=== PATIENT | female | born 1960 | race Caucasian/White ===

== ENCOUNTER 2022-09-14 09:28 | Outpatient (CLI) | payer OTHER, SELFPAY ==
[2022-09-14 10:54] LABS: Anion Gap 9 mmol/L (8-16); Blood Urea Nitrogen 17 mg/dL (7-17); Calcium 9.9 mg/dL (8.4-10.2); Carbon Dioxide 27 mmol/L (22-30); Chloride 101 mmol/L (98-107); Estimated Glomerular Filt Rate 56; Glucose 254 mg/dL (65-110); Potassium 4.4 mmol/L (3.4-5.0); Sodium 137 mmol/L (137-145)
== END 2022-09-14 09:29 | disposition home or self-care (01) ==
LOC: ANHSURGERY 09:31
PROVIDERS: Anesthesiology; PCP Internal Medicine; Visit Provider Student in an Organized Health Care Education/Training Program
DX: E11.9 Type 2 diabetes mellitus without complications (principal); Z01.818 Encounter for other preprocedural examination
CPT/HCPCS: 36415; 80048

== ENCOUNTER 2022-09-17 02:30 | Day surgery (SDC) | payer OTHER, SELFPAY ==
[2022-09-13 08:49] VITALS: BMI 36.5
--- NOTE | 2022-09-13 09:00 | SUR.PREOP ---
Report to the Outpatient Waiting Room, entrance under the green pavilion located off [facility], at time 1045 on date 09/17/2022. Planned Procedure Time: 1245. Time changes happen often and if your time is changed the preop area will call you the afternoon before. - You and your visitor will be asked to self-screen and do not enter if you have any COVID symptoms. - A mask is optional within the hospital at this time. Patients may have clear liquids (water, carbonated beverages, clear teas, apple juice) until 3 hours prior to surgery with a maximum of 20 ounces- 0945. - No food from midnight until time of surgery - Infants may have breast milk until 4 hours before surgery, formula 6 hours prior to surgery. - Children will be allowed to drink immediately following surgery. If applicable, please bring a bottle or sippy cup to assist with drinking. Juice, water, soda, and popsicles are readily available. For infants on formula, please bring formula the day of surgery. Pacifiers are allowed. Take the following medications with a SIP of water the morning of surgery: Levothyroxine DO NOT STOP ANY OF YOUR OTHER PRESCRIPTION MEDICATIONS PRIOR TO SURGERY ?EXCEPT THE FOLLOWING Medications to discontinue per physician Vitamin D, Naproxen Date to take last dose 09/13/2022 Please no make-up, nail yakut, hairspray, perfume, deodorant, or body powder the day of surgery. No jewelry (including any body piercings) or valuables the day of surgery, leave them at home. Please take a shower or bath the night before, or the morning of, surgery with an antibacterial soap. Wear comfortable, loose fitting clothing. Children are encouraged to wear pajamas. - Jewelry must be removed prior to entering the operating room. Rings and piercings that are not removed may be cut off. - The hospital will not accept responsibility for valuables. - Please leave all valuables, including medications, at home the day of surgery. If you are going home after surgery, a licensed driver/refuse collector must drive you home. - NO public transportation without another adult if you receive anesthesia. - We recommend that an adult stay with you for 24 hours following discharge. - We also recommend that you do not drive, make important decision, drink alcoholic beverages, or take any drugs that were not prescribed by your health care provider for at least 24 hours after your discharge time. For Pediatric surgeries, we recommend two adults accompany the child home. Follow any additional instructions given to you from your surgeon. If you or anyone in your household have experienced Covid symptoms in the past week, please notify your surgeon or the nurse liaison at the phone number below for possible testing. Telephone instructions given to ____patient- Bridgettorah and asked if any additional questions and then verbalized understanding. Patient advised to call surgeon office or pre surgery nurse liaison [phone] if any additional questions.
--- NOTE | 2022-09-14 18:32 | WPDANESEPP ---
Anes - Eval Pre Procedure Procedure: Operation Date: 09/17/22 12:45 Proposed Procedures p Hysteroscopy Dilation and Curettage - Nikhil Little MD Date/Time: 09/14/22 18:32 Pre Op Diagnosis: post menopausal bleeding Patient Data Age: 61 Gender: F Height: 1.73 m Weight: 109 kg Allergies Allergy/AdvReac Type Severity Reaction Status Date / Time No Known Allergies Allergy Verified 09/13/22 08:44 Home Medications Medication Instructions Recorded Confirmed Type levothyroxine 112 mcg capsule 112 mcg PO DAILY 10/27/20 09/13/22 History lisinopril 20 1 tablet PO DAILY 10/27/20 09/13/22 History mg-hydrochlorothiazide 12.5 mg tablet simvastatin 20 mg tablet 20 mg PO DAILY 10/27/20 09/13/22 History ergocalciferol (vitamin D2) 1,250 1,250 mcg PO WEEKLY 08/09/22 09/13/22 History mcg (50,000 unit) capsule hydroxyzine HCl 25 mg tablet 25 mg PO PRN PRN nerves/itching 08/09/22 09/13/22 History metformin 1,000 mg tablet 1,000 mg PO BID 08/09/22 09/13/22 History naproxen 500 mg tablet 500 mg PO PRN PRN Pain 08/09/22 09/13/22 History fluconazole 150 mg tablet 150 mg PO Q72H #2 tabs 09/12/22 09/13/22 Rx (Diflucan) nystatin 100,000 unit/gram topical 1 applic topical BID PRN Itching 09/13/22 09/13/22 History powder Patient hx anesthesia problems: none Family hx anesthesia problems: none Results Review: All pre-operative results and documents have been reviewed as part of the pre-operative evaluation. [facility] Past Medical History Medical History (Updated 09/14/22 @ 18:32 by Anusha Salguero CRNA) Arthritis Back pain Diabetes Hyperlipemia Hypertension Obesity (BMI 30-39.9) Thyroid disease Surgical History Surgical History History of delivery History of D&C Family History Family History Mother Diabetes mellitus Heart disease Sibling Hypertension Father Lung cancer Social History Social History Smoking packs per day: 0.75 Smoking cigarettes per day: 15.0 Years smoked: 13 Smoking pack-years: 9.75 Smoking status: Former smoker Tobacco type: cigarettes Smoking end date: 07/30/88 Alcohol intake: never Substance use: never Substance use type: does not use Living arrangements: with family Occupation/Education: occupation Gender identity (if verbalized by the patient): Female Sexual Orientation (if Verbalized by the Patient): Straight or Heterosexual Spiritual care concerns: No Exam Day of Procedure 09/14/22 18:32
--- NOTE | 2022-09-17 07:46 | PM.IMHP ---
H&P: HPI History of Present Illness Date/Time: 09/17/22 07:46 Chief Complaint: postmenopausal bleeding Narrative: ?61-year-old female who presents for hysteroscopy D&C for evaluation of postmenopausal bleeding.? Patient states she continues to have on and off bleeding.? Patient had pelvic ultrasound which confirmed 2 known uterine fibroids, largely unchanged from last exam.? Endometrial lining was known to be irregular and thickened. Review of Systems Cardiovascular: Cardiovascular: Denies chest pain, Denies leg edema, Denies palpitations, Denies dyspnea and Denies dyspnea on exertion Respiratory: Respiratory: Denies cough, Denies dyspnea and Denies dyspnea on exertion Gastrointestinal: Gastrointestinal: Denies abdominal pain, Denies constipation, Denies diarrhea, Denies nausea and Denies vomiting Genitourinary: Genitourinary: Denies hematuria, Denies urinary frequency, Denies dysuria, Denies pelvic pain, Denies urinary incontinence and Denies vaginal discharge Neurologic: Reports system reviewed and no additional complaints, except as documented Psychiatric: Psychiatric: Reports no additional psychiatric complaints Endocrine: Endocrine: Denies palpitations [facility] Past Medical History Medical History (Updated 09/14/22 @ 18:32 by Anusha Salguero CRNA) Arthritis Back pain Diabetes Hyperlipemia Hypertension Obesity (BMI 30-39.9) Thyroid disease Surgical History Surgical History History of delivery History of D&C Family History Family History Mother Diabetes mellitus Heart disease Sibling Hypertension Father Lung cancer Social History Social History Smoking packs per day: 0.75 Smoking cigarettes per day: 15.0 Years smoked: 13 Smoking pack-years: 9.75 Smoking status: Former smoker Tobacco type: cigarettes Smoking end date: 07/30/88 Alcohol intake: never Substance use: never Substance use type: does not use Living arrangements: with family Occupation/Education: occupation Gender identity (if verbalized by the patient): Female Sexual Orientation (if Verbalized by the Patient): Straight or Heterosexual Spiritual care concerns: No Meds Home Medications and Allergies Home Medications Medication Instructions Recorded Confirmed Type levothyroxine 112 mcg capsule 112 mcg PO DAILY 10/27/20 09/13/22 History lisinopril 20 1 tablet PO DAILY 10/27/20 09/13/22 History mg-hydrochlorothiazide 12.5 mg tablet simvastatin 20 mg tablet 20 mg PO DAILY 10/27/20 09/13/22 History ergocalciferol (vitamin D2) 1,250 1,250 mcg PO WEEKLY 08/09/22 09/13/22 History mcg (50,000 unit) capsule hydroxyzine HCl 25 mg tablet 25 mg PO PRN PRN nerves/itching 08/09/22 09/13/22 History metformin 1,000 mg tablet 1,000 mg PO BID 08/09/22 09/13/22 History naproxen 500 mg tablet 500 mg PO PRN PRN Pain 08/09/22 09/13/22 History fluconazole 150 mg tablet 150 mg PO Q72H #2 tabs 09/12/22 09/13/22 Rx (Diflucan) nystatin 100,000 unit/gram topical 1 applic topical BID PRN Itching 09/13/22 09/13/22 History powder Allergies Allergy/AdvReac Type Severity Reaction Status Date / Time No Known Allergies Allergy Verified 09/13/22 08:44 Exam Const: General: no acute distress Eyes: EOM: EOMs intact bilaterally Neck: Neck: supple Thyroid: thyroid normal Chest: Breast/axilla inspection: normal inspection of the breasts Breast/axilla palpation: normal palpation of the breasts, normal palpation of the axillae and no axillary lymphadenopathy Resp: Effort & Inspection: normal respiratory effort Auscultation: clear to auscultation bilaterally Cardio: Rate: regular rate Rhythm: regular rhythm GI: Inspection: non-distended GI Palp: Yes Soft to palpation, No Tenderness to palpation present (GI) and No Guarding due to pal
--- NOTE | 2022-09-17 07:47 | WPDHPUPDATE1 ---
History and Physical Update Update Date/Time: 09/17/22 07:47 History and Physical has been reviewed, including an updated exam of the patient. There are NO changes in the patient's condition. Risks, benefits, and alternatives have been discussed and questions answered. Patient agrees to proceed with procedure.
[2022-09-17] MEDS: ACETAMINOPHEN 500 MG TABLET 1000 MG PO (10:54)
[2022-09-17 11:01] VITALS: BP 127/56; PULSE 100; RESP 18; TEMP 36; O2SAT 99
[2022-09-17] MEDS: LACTATED RINGERS 1,000 ML 30 ML IV CONT (11:17)
[2022-09-17 11:22] LABS: Glucose Point of Care 222 mg/dl (65-105)
--- NOTE | 2022-09-17 12:17 | P.PNAN_ITS ---
Anes - Eval Final PreProcedure Day of Procedure 09/17/22 12:17 Patient weight: obese Heart: regular rate and rhythm Lungs: decreased breath sounds Airway: Mallampati scale class II and special considerations poor dentition Neurological: alert and oriented Last oral intake: >/= 8 hours ASA classification: III Emergent: no Anesthetic plan: proceed Anesthesia type and monitoring: general GIVS and standard monitoring Results Review: All pre-operative results and documents have been reviewed as part of the pre- operative evaluation. Informed Consent: The patient's anesthetic plan and its attendant risks and benefits were discussed with the patient/family/POA. Questions were solicited and answers provided to the satisfaction of the patient/family/POA.
--- NOTE | 2022-09-17 12:50 | W.PM.PROC2 ---
Procedure Note - Detailed Date of Procedure 09/17/22 Pre-op Diagnosis post menopausal bleeding Post-op Diagnosis Same Procedure Performed paracervical block hysteroscopy dilation & curettage Surgeon Nikhil Little MD Anesthesia General Indications abnormal uterine bleeding Findings globally thickened endometrium and hypervascular. unable to visualize the tubal ostia Description of Procedure Mariposa Sheikh presents for hysteroscopy D&C for postmenopausal AUB. . She was counseled as to the indications, risks, benefits, and alternatives to surgery, with the risks including bleeding, infection, damage to surrounding organs, VTE, and complications of anesthesia. Her verbal and written consent was obtained. PROCEDURE: The patient was taken to the OR and general anesthesia induced. She was prepped and draped in Darío stirrups with support of the back and bilateral lower extremities. I/O catheterization performed of the bladder. The above findings were noted. Infiltration with 1% lidocaine at the 3 and 9 o'clock cervical positions was performed. A single tooth tenaculum was placed on the anterior lip of the cervix. The cervix was dilated with sequential Alexandra dilators. Hysteroscopy, using a normal saline medium, was performed and showed the above findings. Sharp uterine curettage was then performed and tissue placed on Telfa. The tenaculum was removed and hemostasis was observed. The patient tolerated the procedure well. Sponge, lap, and needle counts were correct. The patient was taken to the recovery room in stable condition. Estimated Blood Loss 10 Drains No Packing No Pathology Yes (endometrial curettings ) Complications No immediate complications Condition Stable Disposition PACU [facility] Billing Surgery - Charge Forward: Surgery Billing
[2022-09-17 12:55] VITALS: BP 104/57; PULSE 93; RESP 14; O2SAT 96
[2022-09-17 12:57] LABS: Glucose Point of Care 189 mg/dl (65-105)
[2022-09-17 13:25] VITALS: BP 130/57; PULSE 77; RESP 16
[2022-09-17] MEDS: KETOROLAC 15 MG/ML VIAL (*BKC) IV PUSH (13:44)
[2022-09-17 13:50] VITALS: BP 131/61; PULSE 72; RESP 16
== END 2022-09-17 14:15 | disposition home or self-care (01) ==
PROVIDERS: PCP Internal Medicine; Visit Provider Student in an Organized Health Care Education/Training Program
PROC: 0U5B8ZZ Destruction of Endometrium, Via Natural or Artificial Opening Endoscopic (ICD-10-PCS; CPT 58563; principal; 2022-09-17 12:45)
DX: C54.1 Malignant neoplasm of endometrium (principal); N95.0 Postmenopausal bleeding; D25.9 Leiomyoma of uterus, unspecified; I10 Essential (primary) hypertension; E11.9 Type 2 diabetes mellitus without complications; E78.5 Hyperlipidemia, unspecified; E07.9 Disorder of thyroid, unspecified; Z79.84 Long term (current) use of oral hypoglycemic drugs; E66.9 Obesity, unspecified; Z68.35 Body mass index [BMI] 35.0-35.9, adult; Z87.891 Personal history of nicotine dependence
CPT/HCPCS: 58558; 36415; 80048; 82948; 88305; A9270; J1885; J2704; J3010; J7120

== ENCOUNTER 2023-12-20 11:31 | Emergency (ER) | payer MEDICARE, SELFPAY ==
--- NOTE | 2023-12-20 11:40 | ED.UPPEXIN ---
HPI - Extremity Injury (Upper) General Chief Complaint: Neck Pain/Injury Stated Complaint: Left Side Neck/Shoulder Pain Time Seen by Provider: 12/20/23 11:40 Source: patient, RN notes reviewed and old records reviewed Mode of arrival: ambulatory Limitations: no limitations History of Present Illness HPI narrative: Patient presents with complaints of left-sided neck pain that began on December 12, 2023 after undergoing pulmonary function testing. She reports that pain is worse with movement of the neck. She has been turning Tylenol and ibuprofen. She reports that pain radiates to the shoulder with certain movements. She denies numbness or tingling. She retains full range of motion, but does state this increases pain. She has been taking ibuprofen with poor relief. Denies injury or trauma. No other concerns or complaints today. Related Data Home Medications Medication Instructions Recorded Confirmed levothyroxine 112 mcg capsule 112 mcg PO DAILY 10/27/20 12/20/23 lisinopril 20 1 tablet PO DAILY 10/27/20 12/20/23 mg-hydrochlorothiazide 12.5 mg tablet simvastatin 20 mg tablet 20 mg PO DAILY 10/27/20 12/20/23 ergocalciferol (vitamin D2) 1,250 1,250 mcg PO WEEKLY 08/09/22 12/20/23 mcg (50,000 unit) capsule hydroxyzine HCl 25 mg tablet 25 mg PO PRN PRN nerves/itching 08/09/22 12/20/23 metformin 1,000 mg tablet 1,000 mg PO BID 08/09/22 12/20/23 naproxen 500 mg tablet 500 mg PO PRN PRN Pain 08/09/22 12/20/23 nystatin 100,000 unit/gram topical 1 applic topical BID PRN Itching 09/13/22 12/20/23 powder Allergies Allergy/AdvReac Type Severity Reaction Status Date / Time No Known Allergies Allergy Verified 12/20/23 11:34 Review of Systems Review of Systems: All systems reviewed & are unremarkable except as noted in HPI and below Constitutional: Constitutional: Reports no additional constitutional complaints ENT: Reports system reviewed and no additional complaints, except as documented Cardiovascular: Cardiovascular: Reports no additional cardiovascular complaints Respiratory: Respiratory: Reports no additional respiratory complaints Gastrointestinal: Gastrointestinal: Reports no additional gastrointestinal complaints Musculoskeletal: Musculoskeletal: Reports no additional musculoskeletal complaints and Reports as per HPI [facility] Past Medical History Medical History (Updated 12/21/23 @ 00:01 by Angelita Dickson) Arthritis Back pain Diabetes Hyperlipemia Hypertension Obesity (BMI 30-39.9) Thyroid disease Surgical History Surgical History (Updated 09/20/22 @ 14:02 by Trisha Sidhu [facility]) History of delivery History of D&C History of hysteroscopy D&C Family History Family History Mother Diabetes mellitus Heart disease Sibling Hypertension Father Lung cancer Social History Social History Smoking packs per day: 0.75 Smoking cigarettes per day: 15.0 Years smoked: 13 Smoking pack-years: 9.75 Smoking status: Former smoker Tobacco type: cigarettes Smoking end date: 07/30/88 Alcohol intake: never Substance use: never Substance use type: does not use Living arrangements: with family Occupation/Education: occupation Gender identity (if verbalized by the patient): Female Sexual Orientation (if Verbalized by the Patient): Straight or Heterosexual Spiritual care concerns: No Comments At the time of my signature, I reviewed and agree with the nursing past medical, surgical, social, and family history. There is no relevant family history pertinent to the patient complaint. Exam Const: General: cooperative, no acute distress, alert and awake Orientation/consciousness: oriented to person, oriented to place and oriented to time HENMT: Head: normal to inspection Neck: Neck: normal visual inspection, full ROM, no lymphadenopathy and no meningeal signs Neck images: 1. tightness, palpable spasm Resp: Effort & Inspection: normal respiratory effort and able to speak in complete sentences Auscultation: clear to auscultation bilaterally, no crackles, no rales, no rhonchi and no wheezes Cardio: Palpation: normal PMI Rate: regular rate Rhythm: regular rhythm Heart sounds: S1 normal heart sound present and S2 normal heart sound present Neuro: General: oriented to person, oriented to place and oriented to time Cranial nerves: Yes CN's II-XII intact bilaterally Extrem: Left upper extremity: normal to inspection and full ROM Psych: Appearance: grossly normal Thought process: Normal thought process present Insight: Good insight present (Psych) Judgement: Good judgement present (Psych) Course Course Level of Care: Express Care Visit Vital Signs Vital signs: Vital Signs Temperature 97.6 F 12/20/23 11:42 Pulse Rate 125 H 12/20/23 11:42 Respiratory Rate 20 12/20/23 11:42 Blood Pressure 120/66 12/20/23 11:42 Pulse Oximetry 99 12/20/23 11:42 Oxygen Delivery Room Air 12/20/23 11:42 Temperature 97.6 F 12/20/23 11:42 Pulse Rate 125 H 12/20/23 11:42 Respiratory Rate 20 12/20/23 11:42 Blood Pressure 120/66 12/20/23 11:42 Pulse Oximetry 99 12/20/23 11:42 Oxygen Delivery Room Air 12/20/23 11:42 Reviewed MDM - Extremity Injury (Upper) MDM Narrative Medical decision making narrative: Patient with muscle spasm to left trapezius region. Has full range of motion to the left upper extremity. Full range of motion to the neck. On exam, heart rate was 88 auscultated, regular. Patient is nontoxic appearing and in no distress. Treat with prednisone, muscle relaxants. Follow with primary care provider. Emergency department for new or worse symptoms. Discharge instructions reviewed with patient, as well as provided in writing per nursing staff. The instructions also include specific and strict return/GO TO THE ER as well as f/u information. All questions have been answered, and the patient deny any further questions with discharge and discharge plan. Some parts of this dictation were generated by voice recognition software and may contain typographical and/or grammatical inaccuracies. Differential Diagnosis Differential diagnosis: Likely other (Neck pain, shoulder injury) Medical Records Attestation: I reviewed the patient's medical records. Discharge Plan Discharge Clinical Impression: Cervical radiculopathy Patient Disposition: Home, Self-Care Condition: Stable Instructions: Antibiotic Form, Acute Neck Pain (ED) Additional Instructions: Take medication as prescribed, follow with primary care provider. Emergency department for new or worse symptoms. Patient Language: Divehi Prescriptions: New prednisone 50 mg tablet 50 mg PO DAILY Qty: 5 0RF cyclobenzaprine 10 mg tablet 10 mg PO TID PRN (Reason: muscle spasm) Qty: 14 0RF No Action ergocalciferol (vitamin D2) 1,250 mcg (50,000 unit) capsule 1,250 mcg PO WEEKLY Rx Instructions: Takes 1 capsule every . hydroxyzine HCl 25 mg tablet 25 mg PO PRN PRN (Reason: nerves/itching) naproxen 500 mg tablet 500 mg PO PRN PRN (Reason: Pain) levothyroxine 112 mcg capsule 112 mcg PO DAILY lisinopril-hydrochlorothiazide 20-12.5 mg tablet 1 tablet PO DAILY simvastatin 20 mg tablet 20 mg PO DAILY metformin 1,000 mg tablet 1,000 mg PO BID nystatin 100,000 unit/gram powder 1 applic topical BID PRN (Reason: Itching) Follow-up/Referrals: Jenifer,Renato Jett MD [Primary Care Provider] - 1 Week Time of Disposition: 12:06
[2023-12-20 11:42] VITALS: BP 120/66; PULSE 125; RESP 20; TEMP 36.4; O2SAT 99
== END 2023-12-20 12:12 | disposition home or self-care (01) ==
PROVIDERS: Emergency Provider Nurse Practitioner Family; PCP Internal Medicine
DX: M54.12 Radiculopathy, cervical region (principal); E78.5 Hyperlipidemia, unspecified; I10 Essential (primary) hypertension; E11.9 Type 2 diabetes mellitus without complications; Z79.899 Other long term (current) drug therapy; Z79.84 Long term (current) use of oral hypoglycemic drugs; Z87.891 Personal history of nicotine dependence
CPT/HCPCS: 99213; G0463

== ENCOUNTER 2023-12-24 15:46 | Inpatient (IN) | payer MEDICARE, SELFPAY ==
[2023-12-24] VITALS (7 sets, daily range): BP systolic 86–139; BP diastolic 46–65; PULSE 99–132; RESP 13–20; TEMP 36.3–36.7; O2SAT 97–100; BMI 32.7
--- NOTE | ~2023-12-24 | US_ITS ---
EXAMINATION: US biopsy lymph node DATE: 12/27/2023 11:17 INDICATION: Left supraclavicular mass/lymph node biopsy TECHNIQUE: The procedure including the risks and benefits was discussed with the patient. Risks discu ssed included bleeding and infection. The patient understood the risks and agreed to proceed. The sk in overlying the mass at the left supraclavicular region was prepped and draped in usual sterile fash ion. Anesthetic was administered with 1% lidocaine subcutaneously. An 14 gauge core biopsy needle w as advanced under continuous ultrasound observation to the lesion of interest. 4 core biopsy specime ns were obtained, 3 placed in RPMI media and one in formalin. Following the first biopsy there was le akage along the biopsy tract of a significant amount of serosanguineous fluid from the cystic compone nt of the mass. An 18-gauge needle was therefore advanced into the cystic component of the mass with aspiration of approximately 5 mL additional serosanguineous fluid which was also sent for pathology p rior to obtaining the subsequent 3 core biopsy specimens. The needle was removed and the entry site was cleaned and dressed. Post procedure ultrasound demonstrated no hemorrhage. FINDINGS: Ultrasound images demonstrate biopsy needles advanced into the solid components of the pred ominant solid 5 cm left supraclavicular mass. IMPRESSION: 1. Successful Ultrasound-guided biopsy of a 5 cm relatively solid likely partially necrotic left supr aclavicular mass. Reviewed, dictated and finalized at location A. IMPRESSION: 1. Successful Ultrasound-guided biopsy of a 5 cm relatively solid likely partia lly necrotic left supraclavicular mass.
--- NOTE | ~2023-12-24 | US_ITS ---
EXAMINATION: US venous doppler [facility] DATE: 12/26/2023 16:39 INDICATION: Acute pulmonary emboli. TECHNIQUE: Grayscale ultrasound images without and with compression and Doppler ultrasound images of the bilateral lower extremity veins were obtained. COMPARISON: None. FINDINGS: The visualized portions of right common femoral vein, profunda (deep) femoral vein, femoral vein, pop liteal vein, peroneal veins, posterior tibial veins, and greater saphenous vein outflow are patent. The visualized portions of left common femoral vein, profunda femoral vein, femoral vein, popliteal v ein, peroneal veins, posterior tibial veins, and greater saphenous vein outflow are patent. There is a small left Stokes's cyst. IMPRESSION: 1. No deep venous thrombosis. Reviewed, dictated and finalized at location B.
--- NOTE | ~2023-12-24 | CT_ITS ---
EXAMINATION: CT soft tissue neck w con DATE: 12/24/2023 19:19 INDICATION: Tender swelling on the left side of neck TECHNIQUE: Computed tomography (CT) of the neck was performed with 75 mL Omnipaque-350 intravenous co ntrast. The dose-length product was 464.27 mGy-cm. COMPARISON: None FINDINGS: Heterogeneously enhancing 4.9 x 5.1 x 6.3 cm mass in the left lower neck, beginning inferior to the l eft carotid bifurcation and extending inferiorly posterior to the left clavicle, which displaces and severely narrows the adjacent left inferior jugular vein. The thyroid gland is unremarkable. The s ubmandibular and parotid glands are symmetric. There is no cervical lymphadenopathy. There are no masses identified. The superior mediastinum is unremarkable. The airway is unremarkable. Parap haryngeal and pre-glottic fat planes are preserved. Normal enhancing neck arteries. The orbits are unremarkable. Visualized sinuses and mastoid air cells are well aerated. Partially visualized nathalie ng parenchyma is clear. There is cervical spondylosis. Only three teeth remain, periapical lucency at the single remaining left maxillary premolar, likely indicative of periodontal disease. IMPRESSION: Heterogeneous, likely cystic and solid left lower neck mass measuring up to 6.3 cm. May represent a n ecrotic lymph node, other necrotic mass, or abscess. If there has been history of recent catheterizat ion on the left, vascular injury including pseudoaneurysm could be considered, but this is thought to be much less likely. Reviewed, dictated and finalized at location K. IMPRESSION: Heterogeneous, likely cystic and solid left lower neck mass measuring up to 6.3 cm. May represent a necrotic lymph node, other necrotic mass, or abscess. If t here has been history of recent catheterization on the left, vascular injury in cluding pseudoaneurysm could be considered, but this is thought to be much less likely.
--- NOTE | ~2023-12-24 | CT_ITS ---
EXAMINATION: CTA chest PE protocol DATE: 12/24/2023 19:20 INDICATION: tachycardia, SOB, sepsis TECHNIQUE: Computed tomography angiography (CTA) of the chest was performed with 100 mL Omnipaque-350 intravenous contrast timed to evaluate the pulmonary arteries. Coronal maximum intensity projection 3D-reconstructions were created by the technologist. The dose-length product (DLP) was 443.13 mGy-cm. Automated exposure control and iterative reconstruction technique were employed. COMPARISON: None. FINDINGS: Lung parenchyma and airways: 8 mm right upper lobe pulmonary nodule. 7 mm left lower lobe pulmonary n odule. Decreased volume and scarring in the left lower lobe. Pleura: Mild left pleural thickening. Thoracic inlet, axillae and chest wall: Chest wall soft tissues are unremarkable. The inferior portio n of a heterogeneously enhancing left lower neck mass is visualized, please refer to the report on e concurrent CT soft tissue neck for additional details. Thoracic aorta: No significant dilation. No dissection. Mild calcification. Mediastinum: Mildly dilated central pulmonary arteries, as can be seen with pulmonary arterial hypert ension. Heart and pericardium: Mild cardiomegaly. Small volume pericardial effusion. RV/LV ratio less than 1. Coronary artery calcifications: Mild. Upper abdomen: No significant finding. Bones: No acute osseous finding. Pulmonary arteries: Study quality: Adequate. Subsegmental pulmonary emboli noted in the bilateral upp er lobes and right lower lobe. IMPRESSION: Subsegmental, nonocclusive emboli in the bilateral upper lobes and right lower lobe. Low clot burden. No evidence of right heart strain. Small pericardial effusion. Multiple pulmonary nodules measuring up to 8mm, recommend follow-up low-dose noncontrast CT of the est in 3-6 months.. Reviewed, dictated and finalized at location [facility]. IMPRESSION: Subsegmental, nonocclusive emboli in the bilateral upper lobes and right lower lobe. Low clot burden. No evidence of right heart strain. Small pericardial effusion. Multiple pulmonary nodules measuring up to 8mm, recommend follow-up low-dose no ncontrast CT of the chest in 3-6 months..
--- NOTE | 2023-12-24 16:12 | ECG_ITS ---
Test Date: 2023-12-24 16:14:54 Measurements Intervals Mears Rate: 130 P: 52 OH: 142 QRS: 25 QRSD: 85 T: 45 QT: 300 QTc: 442 Interpretive Statements SINUS TACHYCARDIA No previous ECG available for comparison Electronically Signed On 12-25-2023 14:24:37 CDT by Shreya Campos M.D.
[2023-12-24 16:19] LABS: Glucose Point of Care 272 mg/dl (65-105)
--- NOTE | 2023-12-24 16:27 | ED.GENADULT ---
HPI - General Adult General Chief complaint: Unspecified <Judycriselda Felix APRN - Last Filed: 12/25/23 20:30> Stated complaint: multiple complaints <Judy Felix APRN - Last Filed: 12/25/23 20:30> Time Seen by Provider: 12/24/23 16:15 <Judy Felix APRN - Last Filed: 12/25/23 20:30> Focused HPI: Patient is a 63-year-old female who presents to the ER with concerns for increased blood sugar. She endorses numbness in her toes bilaterally. Patient also endorses some tingling in her left hand. She reports that she feels like she is going to pass out. Patient reports her symptoms have been going on for about 3 weeks. She also endorses muscle spasms in her left neck. Patient reports she went to the urgent care earlier today and they told her she has a knot in her neck. GENERAL: Well-appearing, well-nourished, and in no acute distress. HEAD: Normocephalic, atraumatic. CHEST: Clear to auscultation. ?No respiratory distress. HEART: Tachycardia.? NEURO: ?Alert and oriented x3. Patient screened in triage and initial orders placed.? ?Additional care and disposition to be based upon?diagnostic testing and treatment. <Judy Felix APRN - Last Filed: 12/25/23 20:30> History of Present Illness HPI narrative: 63-year-old female has a history of hypothyroidism, hypertension, diabetes presenting with lightheadedness and hyperglycemia. States that for the last several weeks her sugars have been much higher than normal. States that she wakes up now in the 200s. States that normally she never goes above 160. States that she has been having pain in the left side of her neck. She recently was seen at urgent care who started her on prednisone and Flexeril with minimal relief. States that she and started having tingling in all of her toes as well as her left hand so she came in for evaluation. Complains of intermittent nausea but no vomiting. No chest pain or shortness of breath. No fevers, weakness, speech or vision changes. <Rola Sam MD - Last Filed: 12/26/23 19:30> Related Data Home medications: Home Medications Medication Instructions Recorded Confirmed levothyroxine 112 mcg capsule 112 mcg PO DAILY 10/27/20 12/24/23 simvastatin 20 mg tablet 20 mg PO DAILY 10/27/20 12/24/23 hydroxyzine HCl 25 mg tablet 25 mg PO PRN PRN nerves/itching 08/09/22 12/24/23 metformin 1,000 mg tablet 1,000 mg PO BID 08/09/22 12/24/23 naproxen 500 mg tablet 500 mg PO PRN PRN Pain 08/09/22 12/24/23 cholecalciferol (vitamin D3) 50 50 mcg PO DAILY 12/24/23 12/24/23 mcg (2,000 unit) capsule (Vitamin D3) lisinopril 20 mg tablet 20 mg PO DAILY 12/24/23 12/24/23 <Judy Felix APRN - Last Filed: 12/25/23 20:30> Allergies/adverse reactions: Allergies Allergy/AdvReac Type Severity Reaction Status Date / Time No Known Allergies Allergy Verified 12/24/23 22:32 <Judy Felix APRN - Last Filed: 12/25/23 20:30> Review of Systems Review of Systems: All systems reviewed & are unremarkable except as noted in HPI and below <Rola Sam MD - Last Filed: 12/26/23 19:30> [facility] Past Medical History Medical History: Medical History (Updated 12/26/23 @ 19:30 by Rola Sam MD) Anxiety Arthritis Back pain Essential hypertension GERD (gastroesophageal reflux disease) Graves disease Hyperlipemia Hypertension Incidental pulmonary nodule, greater than or equal to 8mm CT scan 06/2023 demonstrated stable 8 mm indeterminate pulmonary nodule left lower lobe according to reports from [place]. 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, treated with hysterectomy with bilateral salpingo oophorectomy and radiation therapy Migraines Obesity (BMI 30-39.9) Postablative hypothyroidism Seborrheic keratosis Thyroid disease Type 2 diabetes mellitus <Judy Felix APRN - Last Filed: 12/25/23 20:30> Surgical History Surgical History: Surgical History (Updated 12/25/23 @ 04:15 by Delia Jeter DO) History of delivery History of D&C History of hysteroscopy History of total abdominal hysterectomy and bilateral salpingo-oophorectomy (11/13/22) <Judy eFlix APRN - Last Filed: 12/25/23 20:30> Family History Family History: Family History Mother Diabetes mellitus Heart disease Sibling Hypertension Father Lung cancer <Judy Felix APRN - Last Filed: 12/25/23 20:30> Social History Social History: Social History (Updated 12/25/23 @ 09:53 by Delia Jeter DO) Social History: Patient lives in [place] with her of 47 years. 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 She is a former smoker but quit smoking in 1988. She denies any significant alcohol or illicit substance use. She has a set of fraternal twins daughter and a son that are 33 years old. Code status: Full code Surrogate decision maker: Denzel () Smoking packs per day: 0.75 Smoking cigarettes per day: 15.0 Years smoked: 12 Smoking pack-years: 9.00 Smoking status: Former smoker Tobacco type: cigarettes Smoking end date: 07/30/88 Alcohol intake: never Substance use: never Substance use type: does not use Do You Feel Safe in your Home?: Yes Lack of Transportation: No Lack of Food: Never True Current Housing: I Have Housing Concerned About Future Housing: No Difficulty Paying Gas/Electric Bills: No Difficulty Paying for Meds: No Currently Unemployed: No Education: High School Diploma/GED Difficulty w/ Childcare or Family Care: No Living arrangements: with family 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 EYES: PERRLA and EOMI. ENT: Mucous membranes dry NECK: Supple. CHEST: Clear to auscultation. No respiratory distress. HEART: tachycardic, regular rhythm ABDOMEN: Soft, nontender, nondistended EXTREMITIES: Normal range of motion. No edema. SKIN: Warm, dry, no rash. NEURO: No focal deficits. Alert and oriented x3. no sensory deficits PSYCH: Normal mood and affect. <Rola Sam MD - Last Filed: 12/26/23 19:30> Course Vital Signs Vital signs: Vital Signs Temperature 98.0 F 12/24/23 16:05 Pulse Rate 132 H 12/24/23 16:05 Respiratory Rate 20 12/24/23 16:05 Blood Pressure 99/56 L 12/24/23 16:05 Pulse Oximetry 100 12/24/23 16:05 Temperature 99 F 12/26/23 14:00 Pulse Rate 112 H 12/26/23 14:00 Respiratory Rate 18 12/26/23 14:00 Blood Pressure 132/51 L 12/26/23 14:00 Pulse Oximetry 98 12/26/23 14:00 Oxygen Delivery Room Air 12/25/23 09:47 <Judy Felix APRN - Last Filed: 12/25/23 20:30> Vital Signs Temperature 98.0 F 12/24/23 16:05 Pulse Rate 132 H 12/24/23 16:05 Respiratory Rate 20 12/24/23 16:05 Blood Pressure 99/56 L 12/24/23 16:05 Pulse Oximetry 100 12/24/23 16:05 Temperature 99 F 12/26/23 14:00 Pulse Rate 112 H 12/26/23 14:00 Respiratory Rate 18 12/26/23 14:00 Blood Pressure 132/51 L 12/26/23 14:00 Pulse Oximetry 98 12/26/23 14:00 Oxygen Delivery Room Air 12/25/23 09:47 <Rola Sam MD - Last Filed: 12/26/23 19:30> Medical Decision Making MDM Narrative Medical decision making narrative: 63-year-old female presenting with lightheadedness, paresthesias, left-sided neck pain. blood pressures initially soft, patient is tachycardic. Blood work with significant leukocytosis, patient does report recently using some prednisone but sepsis protocol has been initiated with all of these findings. CTA is concerning for bilateral subsegmental pulmonary emboli without evidence of right heart strain. Overall low clot burden. CT soft tissue neck shows a large cystic mass left lateral neck, concerning for possible necrotic lymph node, other necrotic mass, abscess. Heparin drip has been initiated. Patient has already been covered with broad-spectrum antibiotics. Her blood pressures have improved significantly following IV fluids. They have been in the 120s to 130 systolic for the last couple of hours. She requires admission for further management. She is agreeable with this plan. I spoke with the hospitalist who has accepted her for admission. I did speak with General surgery regarding the neck mass, feels this can be biopsied on an outpatient basis. <Rola Sam MD - Last Filed: 12/26/23 19:30> Differential Diagnosis Differential Diagnosis: Sepsis, pulmonary embolus, dehydration, neck mass, abscess <Rola Sam MD - Last Filed: 12/26/23 19:30> Medical Records Medical records reviewed: Yes I reviewed the external patient's medical records. <Rola Sam MD - Last Filed: 12/26/23 19:30> Vital Signs Vital Signs: Vital Signs Temperature 98.0 F 12/24/23 16:05 Pulse Rate 132 H 12/24/23 16:05 Respiratory Rate 20 12/24/23 16:05 Blood Pressure 99/56 L 12/24/23 16:05 Pulse Oximetry 100 12/24/23 16:05 Temperature 99 F 12/26/23 14:00 Pulse Rate 112 H 12/26/23 14:00 Respiratory Rate 18 12/26/23 14:00 Blood Pressure 132/51 L 12/26/23 14:00 Pulse Oximetry 98 12/26/23 14:00 Oxygen Delivery Room Air 12/25/23 09:47 <Judy Felix APRN - Last Filed: 12/25/23 20:30> Vital Signs Temperature 98.0 F 12/24/23 16:05 Pulse Rate 132 H 12/24/23 16:05 Respiratory Rate 20 12/24/23 16:05 Blood Pressure 99/56 L 12/24/23 16:05 Pulse Oximetry 100 12/24/23 16:05 Temperature 99 F 12/26/23 14:00 Pulse Rate 112 H 12/26/23 14:00 Respiratory Rate 18 12/26/23 14:00 Blood Pressure 132/51 L 12/26/23 14:00 Pulse Oximetry 98 12/26/23 14:00 Oxygen Delivery Room Air 12/25/23 09:47 <Rola Sam MD - Last Filed: 12/26/23 19:30> Lab Data Lab results reviewed: Yes I reviewed the patient's lab results. <Rola Sam MD - Last Filed: 12/26/23 19:30> Result diagrams: 12/26/23 07:08 12/26/23 07:08 <Judy Felix APRN - Last Filed: 12/25/23 20:30> Labs: Lab Results 12/24/23 12/24/23 12/24/23 Range/Units 16:15 17:10 17:12 WBC 30.5 H (4.5-10.0) K/mm3 RBC 4.23 (4.2-5.4) M/mm3 Hgb 10.1 L (12.0-15.0) g/dL Hct 33.6 L (37.0-47.0) % MCV 79.4 L (80-100) fl MCH 23.9 L (26-34) pg MCHC 30.1 L (32-36) g/dl RDW 14.8 H (11.5-14.5) % Plt Count 585 H (150-375) k/mm3 MPV 8.2 (7.4-10.4) fl Immature Gran % (Auto) 2.0 H (0-0.5) % Neut % (Auto) 88.6 H (45.5-73.1) % Lymph % (Auto) 6.0 L (18.3-44.2) % [place] % (Auto) 2.5 L (2.6-8.5) % Eos % (Auto) 0.5 (0-4.4) % Baso % (Auto) 0.4 (0.2-1.2) % Lymph # (Auto) 1.84 (0.9-3.2) K/mm3 [place] # (Auto) 0.8 H (0.1-0.6) K/mm3 Eos # (Auto) 0.2 (0-0.3) K/mm3 Baso # (Auto) 0.1 (0.0-0.1) K/mm3 Abs Immat Gran (auto) 0.60 H (0.00-0.031) K/mm3 Absolute Neuts (auto) 27.0 H (1.3-6.7) K/mm3 Absolute Nucleated RBC 0.000 (0.0-0.012) K/mm3 Nucleated RBC % 0.0 (0.0-0.2) % Absolute Retic (0.02-0.10) 10^6/uL Percent Retic (0.7-4.3) % Immature Retic Fraction (3.0-15.9) % Retic Hgb Content (28.2-36.6) pg PT 15.2 H (11.1-14.7) Seconds INR 1.2 APTT 34.3 (22.3-36.8) Seconds D-Dimer 5.99 H (<0.48) ug/mL Sodium 133 L (137-145) mmol/L Potassium 4.1 (3.4-5.0) mmol/L Chloride 97 L (98-107) mmol/L Carbon Dioxide 23 (22-30) mmol/L Anion Gap 13 H (4-12) mmol/L BUN 25 H (7-17) mg/dL Creatinine 1.00 (0.7-1.0) mg/dL Estim Creat Clear Calc 56 ml/min Estimated GFR 56 L (59 - ) Glucose 281 H (65-110) mg/dL POC Capillary Glucose 272 H (65-105) mg/dl Lactic Acid 4.0 H (0.7-2.0) mmol/L Calcium 10.1 (8.4-10.2) mg/dL Magnesium (1.6-2.3) mg/dL Iron (37-170) ug/dL TIBC (261-462) ug/dL % Saturation (20-50) % Ferritin (11.1-264) ng/mL Total Bilirubin 0.6 (0.2-1.3) mg/dL AST 15 (14-36) U/L ALT 11 (6-35) U/L Alkaline Phosphatase 152 H (38-126) U/L Troponin I (0.000-0.034) ng/mL C-Reactive Protein 18.3 H (<1.0) mg/dL NT-Pro-B Natriuret Pep (19.9-100) pg/mL Total Protein 7.0 (6.3-8.2) g/dL Albumin 3.5 (3.5-5.1) g/dL Vitamin B12 (239-931) pg/mL Folate (2.76->20) ng/mL Beta-Hydroxybutyrate/Acetoacetate (0.02-0.27) mmol/L Procalcitonin 0.6 ng/mL TSH (Reflex) 8.040 H (0.465-4.68) uIU/mL Free T4 1.58 (0.78-2.19) ng/dL Total T3 0.70 L (0.97-1.69) NG/ML Urine Color (Yellow) Urine Appearance (Clear) Urine pH (5.0-9.0) Ur Specific [place] (1.001-1.035) Urine Protein (Negative) mg/dL Urine Glucose (UA) (Negative) mg/dL Urine Ketones (Negative) mg/dL Ur Blood (Man) (Negative) Urine Nitrate (Negative) Urine Bilirubin (Negative) Urine Urobilinogen (<2.0) mg/dL Leukocyte Esterase Rfl (Negative) SHARA/UL Nasal MRSA (PCR) (NOT DETECTE) 12/24/23 12/24/23 12/24/23 Range/Units 17:13 19:47 20:34 WBC (4.5-10.0) K/mm3 RBC (4.2-5.4) M/mm3 Hgb (12.0-15.0) g/dL Hct (37.0-47.0) % MCV (80-100) fl MCH (26-34) pg MCHC (32-36) g/dl RDW (11.5-14.5) % Plt Count (150-375) k/mm3 MPV (7.4-10.4) fl Immature Gran % (Auto) (0-0.5) % Neut % (Auto) (45.5-73.1) % Lymph % (Auto) (18.3-44.2) % [place] % (Auto) (2.6-8.5) % Eos % (Auto) (0-4.4) % Baso % (Auto) (0.2-1.2) % Lymph # (Auto) (0.9-3.2) K/mm3 [place] # (Auto) (0.1-0.6) K/mm3 Eos # (Auto) (0-0.3) K/mm3 Baso # (Auto) (0.0-0.1) K/mm3 Abs Immat Gran (auto) (0.00-0.031) K/mm3 Absolute Neuts (auto) (1.3-6.7) K/mm3 Absolute Nucleated RBC (0.0-0.012) K/mm3 Nucleated RBC % (0.0-0.2) % Absolute Retic (0.02-0.10) 10^6/uL Percent Retic (0.7-4.3) % Immature Retic Fraction (3.0-15.9) % Retic Hgb Content (28.2-36.6) pg PT (11.1-14.7) Seconds INR APTT (22.3-36.8) Seconds D-Dimer Cancelled (<0.48) ug/mL Sodium (137-145) mmol/L Potassium (3.4-5.0) mmol/L Chloride (98-107) mmol/L Carbon Dioxide (22-30) mmol/L Anion Gap (4-12) mmol/L BUN (7-17) mg/dL Creatinine (0.7-1.0) mg/dL Estim Creat Clear Calc ml/min Estimated GFR (59 - ) Glucose (65-110) mg/dL POC Capillary Glucose (65-105) mg/dl Lactic Acid 1.9 (0.7-2.0) mmol/L Calcium (8.4-10.2) mg/dL Magnesium 1.8 (1.6-2.3) mg/dL Iron (37-170) ug/dL TIBC (261-462) ug/dL % Saturation (20-50) % Ferritin (11.1-264) ng/mL Total Bilirubin (0.2-1.3) mg/dL AST (14-36) U/L ALT (6-35) U/L Alkaline Phosphatase (38-126) U/L Troponin I < 0.012 (0.000-0.034) ng/mL C-Reactive Protein (<1.0) mg/dL NT-Pro-B Natriuret Pep 95 (19.9-100) pg/mL Total Protein (6.3-8.2) g/dL Albumin (3.5-5.1) g/dL Vitamin B12 (239-931) pg/mL Folate (2.76->20) ng/mL Beta-Hydroxybutyrate/Acetoacetate 0.23 (0.02-0.27) mmol/L Procalcitonin ng/mL TSH (Reflex) (0.465-4.68) uIU/mL Free T4 (0.78-2.19) ng/dL Total T3 (0.97-1.69) NG/ML Urine Color Yellow (Yellow) Urine Appearance Clear (Clear) Urine pH 5.5 (5.0-9.0) Ur Specific [place] 1.032 (1.001-1.035) Urine Protein Negative (Negative) mg/dL Urine Glucose (UA) Negative (Negative) mg/dL Urine Ketones Negative (Negative) mg/dL Ur Blood (Man) Negative (Negative) Urine Nitrate Negative (Negative) Urine Bilirubin Negative (Negative) Urine Urobilinogen 0.2 (<2.0) mg/dL Leukocyte Esterase Rfl Negative (Negative) SHARA/UL Nasal MRSA (PCR) (NOT DETECTE) 12/24/23 12/24/23 12/25/23 Range/Units 22:10 23:45 02:34 WBC (4.5-10.0) K/mm3 RBC (4.2-5.4) M/mm3 Hgb (12.0-15.0) g/dL Hct (37.0-47.0) % MCV (80-100) fl MCH (26-34) pg MCHC (32-36) g/dl RDW (11.5-14.5) % Plt Count (150-375) k/mm3 MPV (7.4-10.4) fl Immature Gran % (Auto) (0-0.5) % Neut % (Auto) (45.5-73.1) % Lymph % (Auto) (18.3-44.2) % [place] % (Auto) (2.6-8.5) % Eos % (Auto) (0-4.4) % Baso % (Auto) (0.2-1.2) % Lymph # (Auto) (0.9-3.2) K/mm3 [place] # (Auto) (0.1-0.6) K/mm3 Eos # (Auto) (0-0.3) K/mm3 Baso # (Auto) (0.0-0.1) K/mm3 Abs Immat Gran (auto) (0.00-0.031) K/mm3 Absolute Neuts (auto) (1.3-6.7) K/mm3 Absolute Nucleated RBC (0.0-0.012) K/mm3 Nucleated RBC % (0.0-0.2) % Absolute Retic 0.08 (0.02-0.10) 10^6/uL Percent Retic 2.24 (0.7-4.3) % Immature Retic Fraction 39.0 H (3.0-15.9) % Retic Hgb Content 25.0 L (28.2-36.6) pg PT (11.1-14.7) Seconds INR APTT (22.3-36.8) Seconds D-Dimer (<0.48) ug/mL Sodium (137-145) mmol/L Potassium (3.4-5.0) mmol/L Chloride (98-107) mmol/L Carbon Dioxide (22-30) mmol/L Anion Gap (4-12) mmol/L BUN (7-17) mg/dL Creatinine (0.7-1.0) mg/dL Estim Creat Clear Calc ml/min Estimated GFR (59 - ) Glucose (65-110) mg/dL POC Capillary Glucose 144 H (65-105) mg/dl Lactic Acid (0.7-2.0) mmol/L Calcium (8.4-10.2) mg/dL Magnesium (1.6-2.3) mg/dL Iron (37-170) ug/dL TIBC (261-462) ug/dL % Saturation (20-50) % Ferritin (11.1-264) ng/mL Total Bilirubin (0.2-1.3) mg/dL AST (14-36) U/L ALT (6-35) U/L Alkaline Phosphatase (38-126) U/L Troponin I (0.000-0.034) ng/mL C-Reactive Protein (<1.0) mg/dL NT-Pro-B Natriuret Pep (19.9-100) pg/mL Total Protein (6.3-8.2) g/dL Albumin (3.5-5.1) g/dL Vitamin B12 (239-931) pg/mL Folate (2.76->20) ng/mL Beta-Hydroxybutyrate/Acetoacetate (0.02-0.27) mmol/L Procalcitonin ng/mL TSH (Reflex) (0.465-4.68) uIU/mL Free T4 (0.78-2.19) ng/dL Total T3 (0.97-1.69) NG/ML Urine Color (Yellow) Urine Appearance (Clear) Urine pH (5.0-9.0) Ur Specific [place] (1.001-1.035) Urine Protein (Negative) mg/dL Urine Glucose (UA) (Negative) mg/dL Urine Ketones (Negative) mg/dL Ur Blood (Man) (Negative) Urine Nitrate (Negative) Urine Bilirubin (Negative) Urine Urobilinogen (<2.0) mg/dL Leukocyte Esterase Rfl (Negative) SHARA/UL Nasal MRSA (PCR) Not detected (NOT DETECTE) 12/25/23 12/25/23 12/25/23 Range/Units 02:41 02:41 02:41 WBC 29.4 H (4.5-10.0) K/mm3 RBC 3.58 L (4.2-5.4) M/mm3 Hgb 8.8 L (12.0-15.0) g/dL Hct 28.6 L (37.0-47.0) % MCV 79.9 L (80-100) fl MCH 24.6 L (26-34) pg MCHC 30.8 L (32-36) g/dl RDW 14.8 H (11.5-14.5) % Plt Count 372 (150-375) k/mm3 MPV 8.2 (7.4-10.4) fl Immature Gran % (Auto) 1.8 H (0-0.5) % Neut % (Auto) 93.6 H (45.5-73.1) % Lymph % (Auto) 1.9 L (18.3-44.2) % [place] % (Auto) 2.1 L (2.6-8.5) % Eos % (Auto) 0.3 (0-4.4) % Baso % (Auto) 0.3 (0.2-1.2) % Lymph # (Auto) 0.55 L (0.9-3.2) K/mm3 [place] # (Auto) 0.6 (0.1-0.6) K/mm3 Eos # (Auto) 0.1 (0-0.3) K/mm3 Baso # (Auto) 0.1 (0.0-0.1) K/mm3 Abs Immat Gran (auto) 0.53 H (0.00-0.031) K/mm3 Absolute Neuts (auto) 27.5 H (1.3-6.7) K/mm3 Absolute Nucleated RBC 0.000 (0.0-0.012) K/mm3 Nucleated RBC % 0.0 (0.0-0.2) % Absolute Retic (0.02-0.10) 10^6/uL Percent Retic (0.7-4.3) % Immature Retic Fraction (3.0-15.9) % Retic Hgb Content (28.2-36.6) pg PT (11.1-14.7) Seconds INR APTT 43.0 H (22.3-36.8) Seconds D-Dimer (<0.48) ug/mL Sodium 133 L (137-145) mmol/L Potassium 3.5 (3.4-5.0) mmol/L Chloride 102 (98-107) mmol/L Carbon Dioxide 23 (22-30) mmol/L Anion Gap 8 (4-12) mmol/L BUN 17 (7-17) mg/dL Creatinine 0.80 0.80 (0.7-1.0) mg/dL Estim Creat Clear Calc 70 70 ml/min Estimated GFR > 60 (59 - ) Glucose (65-110) mg/dL POC Capillary Glucose (65-105) mg/dl Lactic Acid (0.7-2.0) mmol/L Calcium (8.4-10.2) mg/dL Magnesium (1.6-2.3) mg/dL Iron (37-170) ug/dL TIBC (261-462) ug/dL % Saturation (20-50) % Ferritin (11.1-264) ng/mL Total Bilirubin (0.2-1.3) mg/dL AST (14-36) U/L ALT (6-35) U/L Alkaline Phosphatase (38-126) U/L Troponin I (0.000-0.034) ng/mL C-Reactive Protein (<1.0) mg/dL NT-Pro-B Natriuret Pep (19.9-100) pg/mL Total Protein (6.3-8.2) g/dL Albumin (3.5-5.1) g/dL Vitamin B12 (239-931) pg/mL Folate (2.76->20) ng/mL Beta-Hydroxybutyrate/Acetoacetate (0.02-0.27) mmol/L Procalcitonin ng/mL TSH (Reflex) (0.465-4.68) uIU/mL Free T4 (0.78-2.19) ng/dL Total T3 (0.97-1.69) NG/ML Urine Color (Yellow) Urine Appearance (Clear) Urine pH (5.0-9.0) Ur Specific [place] (1.001-1.035) Urine Protein (Negative) mg/dL Urine Glucose (UA) (Negative) mg/dL Urine Ketones (Negative) mg/dL Ur Blood (Man) (Negative) Urine Nitrate (Negative) Urine Bilirubin (Negative) Urine Urobilinogen (<2.0) mg/dL Leukocyte Esterase Rfl (Negative) SHARA/UL Nasal MRSA (PCR) (NOT DETECTE) 12/25/23 12/25/23 12/25/23 Range/Units 02:41 05:40 07:57 WBC (4.5-10.0) K/mm3 RBC (4.2-5.4) M/mm3 Hgb (12.0-15.0) g/dL Hct (37.0-47.0) % MCV (80-100) fl MCH (26-34) pg MCHC (32-36) g/dl RDW (11.5-14.5) % Plt Count (150-375) k/mm3 MPV (7.4-10.4) fl Immature Gran % (Auto) (0-0.5) % Neut % (Auto) (45.5-73.1) % Lymph % (Auto) (18.3-44.2) % [place] % (Auto) (2.6-8.5) % Eos % (Auto) (0-4.4) % Baso % (Auto) (0.2-1.2) % Lymph # (Auto) (0.9-3.2) K/mm3 [place] # (Auto) (0.1-0.6) K/mm3 Eos # (Auto) (0-0.3) K/mm3 Baso # (Auto) (0.0-0.1) K/mm3 Abs Immat Gran (auto) (0.00-0.031) K/mm3 Absolute Neuts (auto) (1.3-6.7) K/mm3 Absolute Nucleated RBC (0.0-0.012) K/mm3 Nucleated RBC % (0.0-0.2) % Absolute Retic (0.02-0.10) 10^6/uL Percent Retic (0.7-4.3) % Immature Retic Fraction (3.0-15.9) % Retic Hgb Content (28.2-36.6) pg PT (11.1-14.7) Seconds INR APTT (22.3-36.8) Seconds D-Dimer (<0.48) ug/mL Sodium (137-145) mmol/L Potassium (3.4-5.0) mmol/L Chloride (98-107) mmol/L Carbon Dioxide (22-30) mmol/L Anion Gap (4-12) mmol/L BUN (7-17) mg/dL Creatinine (0.7-1.0) mg/dL Estim Creat Clear Calc ml/min Estimated GFR > 60 (59 - ) Glucose 182 H (65-110) mg/dL POC Capillary Glucose 227 H (65-105) mg/dl Lactic Acid (0.7-2.0) mmol/L Calcium 8.7 (8.4-10.2) mg/dL Magnesium (1.6-2.3) mg/dL Iron 25 L (37-170) ug/dL TIBC 215 L (261-462) ug/dL % Saturation 12 L (20-50) % Ferritin 167.00 (11.1-264) ng/mL Total Bilirubin 0.5 (0.2-1.3) mg/dL AST 10 L (14-36) U/L ALT 8 (6-35) U/L Alkaline Phosphatase 142 H (38-126) U/L Troponin I (0.000-0.034) ng/mL C-Reactive Protein (<1.0) mg/dL NT-Pro-B Natriuret Pep (19.9-100) pg/mL Total Protein 6.0 L (6.3-8.2) g/dL Albumin 2.7 L (3.5-5.1) g/dL Vitamin B12 222.0 L (239-931) pg/mL Folate 3.7 (2.76->20) ng/mL Beta-Hydroxybutyrate/Acetoacetate (0.02-0.27) mmol/L Procalcitonin ng/mL TSH (Reflex) (0.465-4.68) uIU/mL Free T4 (0.78-2.19) ng/dL Total T3 (0.97-1.69) NG/ML Urine Color (Yellow) Urine Appearance (Clear) Urine pH (5.0-9.0) Ur Specific [place] (1.001-1.035) Urine Protein (Negative) mg/dL Urine Glucose (UA) (Negative) mg/dL Urine Ketones (Negative) mg/dL Ur Blood (Man) (Negative) Urine Nitrate (Negative) Urine Bilirubin (Negative) Urine Urobilinogen (<2.0) mg/dL Leukocyte Esterase Rfl (Negative) SHARA/UL Nasal MRSA (PCR) (NOT DETECTE) 12/25/23 Range/Units 09:46 WBC (4.5-10.0) K/mm3 RBC (4.2-5.4) M/mm3 Hgb (12.0-15.0) g/dL Hct (37.0-47.0) % MCV (80-100) fl MCH (26-34) pg MCHC (32-36) g/dl RDW (11.5-14.5) % Plt Count (150-375) k/mm3 MPV (7.4-10.4) fl Immature Gran % (Auto) (0-0.5) % Neut % (Auto) (45.5-73.1) % Lymph % (Auto) (18.3-44.2) % [place] % (Auto) (2.6-8.5) % Eos % (Auto) (0-4.4) % Baso % (Auto) (0.2-1.2) % Lymph # (Auto) (0.9-3.2) K/mm3 [place] # (Auto) (0.1-0.6) K/mm3 Eos # (Auto) (0-0.3) K/mm3 Baso # (Auto) (0.0-0.1) K/mm3 Abs Immat Gran (auto) (0.00-0.031) K/mm3 Absolute Neuts (auto) (1.3-6.7) K/mm3 Absolute Nucleated RBC (0.0-0.012) K/mm3 Nucleated RBC % (0.0-0.2) % Absolute Retic (0.02-0.10) 10^6/uL Percent Retic (0.7-4.3) % Immature Retic Fraction (3.0-15.9) % Retic Hgb Content (28.2-36.6) pg PT (11.1-14.7) Seconds INR APTT 45.0 H (22.3-36.8) Seconds D-Dimer (<0.48) ug/mL Sodium (137-145) mmol/L Potassium (3.4-5.0) mmol/L Chloride (98-107) mmol/L Carbon Dioxide (22-30) mmol/L Anion Gap (4-12) mmol/L BUN (7-17) mg/dL Creatinine (0.7-1.0) mg/dL Estim Creat Clear Calc ml/min Estimated GFR (59 - ) Glucose (65-110) mg/dL POC Capillary Glucose (65-105) mg/dl Lactic Acid (0.7-2.0) mmol/L Calcium (8.4-10.2) mg/dL Magnesium (1.6-2.3) mg/dL Iron (37-170) ug/dL TIBC (261-462) ug/dL % Saturation (20-50) % Ferritin (11.1-264) ng/mL Total Bilirubin (0.2-1.3) mg/dL AST (14-36) U/L ALT (6-35) U/L Alkaline Phosphatase (38-126) U/L Troponin I (0.000-0.034) ng/mL C-Reactive Protein (<1.0) mg/dL NT-Pro-B Natriuret Pep (19.9-100) pg/mL Total Protein (6.3-8.2) g/dL Albumin (3.5-5.1) g/dL Vitamin B12 (239-931) pg/mL Folate (2.76->20) ng/mL Beta-Hydroxybutyrate/Acetoacetate (0.02-0.27) mmol/L Procalcitonin ng/mL TSH (Reflex) (0.465-4.68) uIU/mL Free T4 (0.78-2.19) ng/dL Total T3 (0.97-1.69) NG/ML Urine Color (Yellow) Urine Appearance (Clear) Urine pH (5.0-9.0) Ur Specific [place] (1.001-1.035) Urine Protein (Negative) mg/dL Urine Glucose (UA) (Negative) mg/dL Urine Ketones (Negative) mg/dL Ur Blood (Man) (Negative) Urine Nitrate (Negative) Urine Bilirubin (Negative) Urine Urobilinogen (<2.0) mg/dL Leukocyte Esterase Rfl (Negative) SHARA/UL Nasal MRSA (PCR) (NOT DETECTE) <Judy Felix, LEATHER FLESHER - Last Filed: 12/25/23 20:30> Lab Results 12/24/23 12/24/23 12/24/23 Range/Units 16:15 17:10 17:12 WBC 30.5 H (4.5-10.0) K/mm3 RBC 4.23 (4.2-5.4) M/mm3 Hgb 10.1 L (12.0-15.0) g/dL Hct 33.6 L (37.0-47.0) % MCV 79.4 L (80-100) fl MCH 23.9 L (26-34) pg MCHC 30.1 L (32-36) g/dl RDW 14.8 H (11.5-14.5) % Plt Count 585 H (150-375) k/mm3 MPV 8.2 (7.4-10.4) fl Immature Gran % (Auto) 2.0 H (0-0.5) % Neut % (Auto) 88.6 H (45.5-73.1) % Lymph % (Auto) 6.0 L (18.3-44.2) % [place] % (Auto) 2.5 L (2.6-8.5) % Eos % (Auto) 0.5 (0-4.4) % Baso % (Auto) 0.4 (0.2-1.2) % Lymph # (Auto) 1.84 (0.9-3.2) K/mm3 [place] # (Auto) 0.8 H (0.1-0.6) K/mm3 Eos # (Auto) 0.2 (0-0.3) K/mm3 Baso # (Auto) 0.1 (0.0-0.1) K/mm3 Abs Immat Gran (auto) 0.60 H (0.00-0.031) K/mm3 Absolute Neuts (auto) 27.0 H (1.3-6.7) K/mm3 Absolute Nucleated RBC 0.000 (0.0-0.012) K/mm3 Nucleated RBC % 0.0 (0.0-0.2) % Absolute Retic (0.02-0.10) 10^6/uL Percent Retic (0.7-4.3) % Immature Retic Fraction (3.0-15.9) % Retic Hgb Content (28.2-36.6) pg PT 15.2 H (11.1-14.7) Seconds INR 1.2 APTT 34.3 (22.3-36.8) Seconds D-Dimer 5.99 H (<0.48) ug/mL Sodium 133 L (137-145) mmol/L Potassium 4.1 (3.4-5.0) mmol/L Chloride 97 L (98-107) mmol/L Carbon Dioxide 23 (22-30) mmol/L Anion Gap 13 H (4-12) mmol/L BUN 25 H (7-17) mg/dL Creatinine 1.00 (0.7-1.0) mg/dL Estim Creat Clear Calc 56 ml/min Estimated GFR 56 L (59 - ) Glucose 281 H (65-110) mg/dL POC Capillary Glucose 272 H (65-105) mg/dl Lactic Acid 4.0 H (0.7-2.0) mmol/L Calcium 10.1 (8.4-10.2) mg/dL Magnesium (1.6-2.3) mg/dL Iron (37-170) ug/dL TIBC (261-462) ug/dL % Saturation (20-50) % Ferritin (11.1-264) ng/mL Total Bilirubin 0.6 (0.2-1.3) mg/dL AST 15 (14-36) U/L ALT 11 (6-35) U/L Alkaline Phosphatase 152 H (38-126) U/L Troponin I (0.000-0.034) ng/mL C-Reactive Protein 18.3 H (<1.0) mg/dL NT-Pro-B Natriuret Pep (19.9-100) pg/mL Total Protein 7.0 (6.3-8.2) g/dL Albumin 3.5 (3.5-5.1) g/dL Vitamin B12 (239-931) pg/mL Folate (2.76->20) ng/mL Beta-Hydroxybutyrate/Acetoacetate (0.02-0.27) mmol/L Procalcitonin 0.6 ng/mL TSH (Reflex) 8.040 H (0.465-4.68) uIU/mL Free T4 1.58 (0.78-2.19) ng/dL Total T3 0.70 L (0.97-1.69) NG/ML Urine Color (Yellow) Urine Appearance (Clear) Urine pH (5.0-9.0) Ur Specific [place] (1.001-1.035) Urine Protein (Negative) mg/dL Urine Glucose (UA) (Negative) mg/dL Urine Ketones (Negative) mg/dL Ur Blood (Man) (Negative) Urine Nitrate (Negative) Urine Bilirubin (Negative) Urine Urobilinogen (<2.0) mg/dL Leukocyte Esterase Rfl (Negative) SHARA/UL Nasal MRSA (PCR) (NOT DETECTE) 12/24/23 12/24/23 12/24/23 Range/Units 17:13 19:47 20:34 WBC (4.5-10.0) K/mm3 RBC (4.2-5.4) M/mm3 Hgb (12.0-15.0) g/dL Hct (37.0-47.0) % MCV (80-100) fl MCH (26-34) pg MCHC (32-36) g/dl RDW (11.5-14.5) % Plt Count (150-375) k/mm3 MPV (7.4-10.4) fl Immature Gran % (Auto) (0-0.5) % Neut % (Auto) (45.5-73.1) % Lymph % (Auto) (18.3-44.2) % [place] % (Auto) (2.6-8.5) % Eos % (Auto) (0-4.4) % Baso % (Auto) (0.2-1.2) % Lymph # (Auto) (0.9-3.2) K/mm3 [place] # (Auto) (0.1-0.6) K/mm3 Eos # (Auto) (0-0.3) K/mm3 Baso # (Auto) (0.0-0.1) K/mm3 Abs Immat Gran (auto) (0.00-0.031) K/mm3 Absolute Neuts (auto) (1.3-6.7) K/mm3 Absolute Nucleated RBC (0.0-0.012) K/mm3 Nucleated RBC % (0.0-0.2) % Absolute Retic (0.02-0.10) 10^6/uL Percent Retic (0.7-4.3) % Immature Retic Fraction (3.0-15.9) % Retic Hgb Content (28.2-36.6) pg PT (11.1-14.7) Seconds INR APTT (22.3-36.8) Seconds D-Dimer Cancelled (<0.48) ug/mL Sodium (137-145) mmol/L Potassium (3.4-5.0) mmol/L Chloride (98-107) mmol/L Carbon Dioxide (22-30) mmol/L Anion Gap (4-12) mmol/L BUN (7-17) mg/dL Creatinine (0.7-1.0) mg/dL Estim Creat Clear Calc ml/min Estimated GFR (59 - ) Glucose (65-110) mg/dL POC Capillary Glucose (65-105) mg/dl Lactic Acid 1.9 (0.7-2.0) mmol/L Calcium (8.4-10.2) mg/dL Magnesium 1.8 (1.6-2.3) mg/dL Iron (37-170) ug/dL TIBC (261-462) ug/dL % Saturation (20-50) % Ferritin (11.1-264) ng/mL Total Bilirubin (0.2-1.3) mg/dL AST (14-36) U/L ALT (6-35) U/L Alkaline Phosphatase (38-126) U/L Troponin I < 0.012 (0.000-0.034) ng/mL C-Reactive Protein (<1.0) mg/dL NT-Pro-B Natriuret Pep 95 (19.9-100) pg/mL Total Protein (6.3-8.2) g/dL Albumin (3.5-5.1) g/dL Vitamin B12 (239-931) pg/mL Folate (2.76->20) ng/mL Beta-Hydroxybutyrate/Acetoacetate 0.23 (0.02-0.27) mmol/L Procalcitonin ng/mL TSH (Reflex) (0.465-4.68) uIU/mL Free T4 (0.78-2.19) ng/dL Total T3 (0.97-1.69) NG/ML Urine Color Yellow (Yellow) Urine Appearance Clear (Clear) Urine pH 5.5 (5.0-9.0) Ur Specific [place] 1.032 (1.001-1.035) Urine Protein Negative (Negative) mg/dL Urine Glucose (UA) Negative (Negative) mg/dL Urine Ketones Negative (Negative) mg/dL Ur Blood (Man) Negative (Negative) Urine Nitrate Negative (Negative) Urine Bilirubin Negative (Negative) Urine Urobilinogen 0.2 (<2.0) mg/dL Leukocyte Esterase Rfl Negative (Negative) SHARA/UL Nasal MRSA (PCR) (NOT DETECTE) 12/24/23 12/24/23 12/25/23 Range/Units 22:10 23:45 02:34 WBC (4.5-10.0) K/mm3 RBC (4.2-5.4) M/mm3 Hgb (12.0-15.0) g/dL Hct (37.0-47.0) % MCV (80-100) fl MCH (26-34) pg MCHC (32-36) g/dl RDW (11.5-14.5) % Plt Count (150-375) k/mm3 MPV (7.4-10.4) fl Immature Gran % (Auto) (0-0.5) % Neut % (Auto) (45.5-73.1) % Lymph % (Auto) (18.3-44.2) % [place] % (Auto) (2.6-8.5) % Eos % (Auto) (0-4.4) % Baso % (Auto) (0.2-1.2) % Lymph # (Auto) (0.9-3.2) K/mm3 [place] # (Auto) (0.1-0.6) K/mm3 Eos # (Auto) (0-0.3) K/mm3 Baso # (Auto) (0.0-0.1) K/mm3 Abs Immat Gran (auto) (0.00-0.031) K/mm3 Absolute Neuts (auto) (1.3-6.7) K/mm3 Absolute Nucleated RBC (0.0-0.012) K/mm3 Nucleated RBC % (0.0-0.2) % Absolute Retic 0.08 (0.02-0.10) 10^6/uL Percent Retic 2.24 (0.7-4.3) % Immature Retic Fraction 39.0 H (3.0-15.9) % Retic Hgb Content 25.0 L (28.2-36.6) pg PT (11.1-14.7) Seconds INR APTT (22.3-36.8) Seconds D-Dimer (<0.48) ug/mL Sodium (137-145) mmol/L Potassium (3.4-5.0) mmol/L Chloride (98-107) mmol/L Carbon Dioxide (22-30) mmol/L Anion Gap (4-12) mmol/L BUN (7-17) mg/dL Creatinine (0.7-1.0) mg/dL Estim Creat Clear Calc ml/min Estimated GFR (59 - ) Glucose (65-110) mg/dL POC Capillary Glucose 144 H (65-105) mg/dl Lactic Acid (0.7-2.0) mmol/L Calcium (8.4-10.2) mg/dL Magnesium (1.6-2.3) mg/dL Iron (37-170) ug/dL TIBC (261-462) ug/dL % Saturation (20-50) % Ferritin (11.1-264) ng/mL Total Bilirubin (0.2-1.3) mg/dL AST (14-36) U/L ALT (6-35) U/L Alkaline Phosphatase (38-126) U/L Troponin I (0.000-0.034) ng/mL C-Reactive Protein (<1.0) mg/dL NT-Pro-B Natriuret Pep (19.9-100) pg/mL Total Protein (6.3-8.2) g/dL Albumin (3.5-5.1) g/dL Vitamin B12 (239-931) pg/mL Folate (2.76->20) ng/mL Beta-Hydroxybutyrate/Acetoacetate (0.02-0.27) mmol/L Procalcitonin ng/mL TSH (Reflex) (0.465-4.68) uIU/mL Free T4 (0.78-2.19) ng/dL Total T3 (0.97-1.69) NG/ML Urine Color (Yellow) Urine Appearance (Clear) Urine pH (5.0-9.0) Ur Specific [place] (1.001-1.035) Urine Protein (Negative) mg/dL Urine Glucose (UA) (Negative) mg/dL Urine Ketones (Negative) mg/dL Ur Blood (Man) (Negative) Urine Nitrate (Negative) Urine Bilirubin (Negative) Urine Urobilinogen (<2.0) mg/dL Leukocyte Esterase Rfl (Negative) SHARA/UL Nasal MRSA (PCR) Not detected (NOT DETECTE) 12/25/23 12/25/23 12/25/23 Range/Units 02:41 02:41 02:41 WBC 29.4 H (4.5-10.0) K/mm3 RBC 3.58 L (4.2-5.4) M/mm3 Hgb 8.8 L (12.0-15.0) g/dL Hct 28.6 L (37.0-47.0) % MCV 79.9 L (80-100) fl MCH 24.6 L (26-34) pg MCHC 30.8 L (32-36) g/dl RDW 14.8 H (11.5-14.5) % Plt Count 372 (150-375) k/mm3 MPV 8.2 (7.4-10.4) fl Immature Gran % (Auto) 1.8 H (0-0.5) % Neut % (Auto) 93.6 H (45.5-73.1) % Lymph % (Auto) 1.9 L (18.3-44.2) % [place] % (Auto) 2.1 L (2.6-8.5) % Eos % (Auto) 0.3 (0-4.4) % Baso % (Auto) 0.3 (0.2-1.2) % Lymph # (Auto) 0.55 L (0.9-3.2) K/mm3 [place] # (Auto) 0.6 (0.1-0.6) K/mm3 Eos # (Auto) 0.1 (0-0.3) K/mm3 Baso # (Auto) 0.1 (0.0-0.1) K/mm3 Abs Immat Gran (auto) 0.53 H (0.00-0.031) K/mm3 Absolute Neuts (auto) 27.5 H (1.3-6.7) K/mm3 Absolute Nucleated RBC 0.000 (0.0-0.012) K/mm3 Nucleated RBC % 0.0 (0.0-0.2) % Absolute Retic (0.02-0.10) 10^6/uL Percent Retic (0.7-4.3) % Immature Retic Fraction (3.0-15.9) % Retic Hgb Content (28.2-36.6) pg PT (11.1-14.7) Seconds INR APTT 43.0 H (22.3-36.8) Seconds D-Dimer (<0.48) ug/mL Sodium 133 L (137-145) mmol/L Potassium 3.5 (3.4-5.0) mmol/L Chloride 102 (98-107) mmol/L Carbon Dioxide 23 (22-30) mmol/L Anion Gap 8 (4-12) mmol/L BUN 17 (7-17) mg/dL Creatinine 0.80 0.80 (0.7-1.0) mg/dL Estim Creat Clear Calc 70 70 ml/min Estimated GFR > 60 (59 - ) Glucose (65-110) mg/dL POC Capillary Glucose (65-105) mg/dl Lactic Acid (0.7-2.0) mmol/L Calcium (8.4-10.2) mg/dL Magnesium (1.6-2.3) mg/dL Iron (37-170) ug/dL TIBC (261-462) ug/dL % Saturation (20-50) % Ferritin (11.1-264) ng/mL Total Bilirubin (0.2-1.3) mg/dL AST (14-36) U/L ALT (6-35) U/L Alkaline Phosphatase (38-126) U/L Troponin I (0.000-0.034) ng/mL C-Reactive Protein (<1.0) mg/dL NT-Pro-B Natriuret Pep (19.9-100) pg/mL Total Protein (6.3-8.2) g/dL Albumin (3.5-5.1) g/dL Vitamin B12 (239-931) pg/mL Folate (2.76->20) ng/mL Beta-Hydroxybutyrate/Acetoacetate (0.02-0.27) mmol/L Procalcitonin ng/mL TSH (Reflex) (0.465-4.68) uIU/mL Free T4 (0.78-2.19) ng/dL Total T3 (0.97-1.69) NG/ML Urine Color (Yellow) Urine Appearance (Clear) Urine pH (5.0-9.0) Ur Specific [place] (1.001-1.035) Urine Protein (Negative) mg/dL Urine Glucose (UA) (Negative) mg/dL Urine Ketones (Negative) mg/dL Ur Blood (Man) (Negative) Urine Nitrate (Negative) Urine Bilirubin (Negative) Urine Urobilinogen (<2.0) mg/dL Leukocyte Esterase Rfl (Negative) SHARA/UL Nasal MRSA (PCR) (NOT DETECTE) 12/25/23 12/25/23 12/25/23 Range/Units 02:41 05:40 07:57 WBC (4.5-10.0) K/mm3 RBC (4.2-5.4) M/mm3 Hgb (12.0-15.0) g/dL Hct (37.0-47.0) % MCV (80-100) fl MCH (26-34) pg MCHC (32-36) g/dl RDW (11.5-14.5) % Plt Count (150-375) k/mm3 MPV (7.4-10.4) fl Immature Gran % (Auto) (0-0.5) % Neut % (Auto) (45.5-73.1) % Lymph % (Auto) (18.3-44.2) % [place] % (Auto) (2.6-8.5) % Eos % (Auto) (0-4.4) % Baso % (Auto) (0.2-1.2) % Lymph # (Auto) (0.9-3.2) K/mm3 [place] # (Auto) (0.1-0.6) K/mm3 Eos # (Auto) (0-0.3) K/mm3 Baso # (Auto) (0.0-0.1) K/mm3 Abs Immat Gran (auto) (0.00-0.031) K/mm3 Absolute Neuts (auto) (1.3-6.7) K/mm3 Absolute Nucleated RBC (0.0-0.012) K/mm3 Nucleated RBC % (0.0-0.2) % Absolute Retic (0.02-0.10) 10^6/uL Percent Retic (0.7-4.3) % Immature Retic Fraction (3.0-15.9) % Retic Hgb Content (28.2-36.6) pg PT (11.1-14.7) Seconds INR APTT (22.3-36.8) Seconds D-Dimer (<0.48) ug/mL Sodium (137-145) mmol/L Potassium (3.4-5.0) mmol/L Chloride (98-107) mmol/L Carbon Dioxide (22-30) mmol/L Anion Gap (4-12) mmol/L BUN (7-17) mg/dL Creatinine (0.7-1.0) mg/dL Estim Creat Clear Calc ml/min Estimated GFR > 60 (59 - ) Glucose 182 H (65-110) mg/dL POC Capillary Glucose 227 H (65-105) mg/dl Lactic Acid (0.7-2.0) mmol/L Calcium 8.7 (8.4-10.2) mg/dL Magnesium (1.6-2.3) mg/dL Iron 25 L (37-170) ug/dL TIBC 215 L (261-462) ug/dL % Saturation 12 L (20-50) % Ferritin 167.00 (11.1-264) ng/mL Total Bilirubin 0.5 (0.2-1.3) mg/dL AST 10 L (14-36) U/L ALT 8 (6-35) U/L Alkaline Phosphatase 142 H (38-126) U/L Troponin I (0.000-0.034) ng/mL C-Reactive Protein (<1.0) mg/dL NT-Pro-B Natriuret Pep (19.9-100) pg/mL Total Protein 6.0 L (6.3-8.2) g/dL Albumin 2.7 L (3.5-5.1) g/dL Vitamin B12 222.0 L (239-931) pg/mL Folate 3.7 (2.76->20) ng/mL Beta-Hydroxybutyrate/Acetoacetate (0.02-0.27) mmol/L Procalcitonin ng/mL TSH (Reflex) (0.465-4.68) uIU/mL Free T4 (0.78-2.19) ng/dL Total T3 (0.97-1.69) NG/ML Urine Color (Yellow) Urine Appearance (Clear) Urine pH (5.0-9.0) Ur Specific [place] (1.001-1.035) Urine Protein (Negative) mg/dL Urine Glucose (UA) (Negative) mg/dL Urine Ketones (Negative) mg/dL Ur Blood (Man) (Negative) Urine Nitrate (Negative) Urine Bilirubin (Negative) Urine Urobilinogen (<2.0) mg/dL Leukocyte Esterase Rfl (Negative) SHARA/UL Nasal MRSA (PCR) (NOT DETECTE) 12/25/23 Range/Units 09:46 WBC (4.5-10.0) K/mm3 RBC (4.2-5.4) M/mm3 Hgb (12.0-15.0) g/dL Hct (37.0-47.0) % MCV (80-100) fl MCH (26-34) pg MCHC (32-36) g/dl RDW (11.5-14.5) % Plt Count (150-375) k/mm3 MPV (7.4-10.4) fl Immature Gran % (Auto) (0-0.5) % Neut % (Auto) (45.5-73.1) % Lymph % (Auto) (18.3-44.2) % [place] % (Auto) (2.6-8.5) % Eos % (Auto) (0-4.4) % Baso % (Auto) (0.2-1.2) % Lymph # (Auto) (0.9-3.2) K/mm3 [place] # (Auto) (0.1-0.6) K/mm3 Eos # (Auto) (0-0.3) K/mm3 Baso # (Auto) (0.0-0.1) K/mm3 Abs Immat Gran (auto) (0.00-0.031) K/mm3 Absolute Neuts (auto) (1.3-6.7) K/mm3 Absolute Nucleated RBC (0.0-0.012) K/mm3 Nucleated RBC % (0.0-0.2) % Absolute Retic (0.02-0.10) 10^6/uL Percent Retic (0.7-4.3) % Immature Retic Fraction (3.0-15.9) % Retic Hgb Content (28.2-36.6) pg PT (11.1-14.7) Seconds INR APTT 45.0 H (22.3-36.8) Seconds D-Dimer (<0.48) ug/mL Sodium (137-145) mmol/L Potassium (3.4-5.0) mmol/L Chloride (98-107) mmol/L Carbon Dioxide (22-30) mmol/L Anion Gap (4-12) mmol/L BUN (7-17) mg/dL Creatinine (0.7-1.0) mg/dL Estim Creat Clear Calc ml/min Estimated GFR (59 - ) Glucose (65-110) mg/dL POC Capillary Glucose (65-105) mg/dl Lactic Acid (0.7-2.0) mmol/L Calcium (8.4-10.2) mg/dL Magnesium (1.6-2.3) mg/dL Iron (37-170) ug/dL TIBC (261-462) ug/dL % Saturation (20-50) % Ferritin (11.1-264) ng/mL Total Bilirubin (0.2-1.3) mg/dL AST (14-36) U/L ALT (6-35) U/L Alkaline Phosphatase (38-126) U/L Troponin I (0.000-0.034) ng/mL C-Reactive Protein (<1.0) mg/dL NT-Pro-B Natriuret Pep (19.9-100) pg/mL Total Protein (6.3-8.2) g/dL Albumin (3.5-5.1) g/dL Vitamin B12 (239-931) pg/mL Folate (2.76->20) ng/mL Beta-Hydroxybutyrate/Acetoacetate (0.02-0.27) mmol/L Procalcitonin ng/mL TSH (Reflex) (0.465-4.68) uIU/mL Free T4 (0.78-2.19) ng/dL Total T3 (0.97-1.69) NG/ML Urine Color (Yellow) Urine Appearance (Clear) Urine pH (5.0-9.0) Ur Specific [place] (1.001-1.035) Urine Protein (Negative) mg/dL Urine Glucose (UA) (Negative) mg/dL Urine Ketones (Negative) mg/dL Ur Blood (Man) (Negative) Urine Nitrate (Negative) Urine Bilirubin (Negative) Urine Urobilinogen (<2.0) mg/dL Leukocyte Esterase Rfl (Negative) SHARA/UL Nasal MRSA (PCR) (NOT DETECTE) <Rola Sam MD - Last Filed: 12/26/23 19:30> Imaging Data Radiologist's impression: ITS Impressions Chest CTA 12/24/23 19:22 IMPRESSION: Subsegmental, nonocclusive emboli in the bilateral upper lobes and right lower lobe. Low clot burden. No evidence of right heart strain. Small pericardial effusion. Multiple pulmonary nodules measuring up to 8mm, recommend follow-up low-dose noncontrast CT of the chest in 3-6 months.. Soft Tissue Neck CT 12/24/23 19:34 IMPRESSION: Heterogeneous, likely cystic and solid left lower neck mass measuring up to 6.3 cm. May represent a necrotic lymph node, other necrotic mass, or abscess. If there has been history of recent catheterization on the left, vascular injury including pseudoaneurysm could be considered, but this is thought to be much less likely. <Rola Sam MD - Last Filed: 12/26/23 19:30> Critical Care Time Critical Care Time Critical Care Time: Yes <Rola Sam MD - Last Filed: 12/26/23 19:30> Total Critical Care Time: 32 <Rola Sam MD - Last Filed: 12/26/23 19:30> Discharge Plan Discharge Clinical Impression: Mass in neck, Multiple subsegmental pulmonary emboli without acute cor pulmonale, Sepsis <Judy Felix APRN - Last Filed: 12/25/23 20:30> Patient Disposition: Still a Patient <Judy Felix APRN - Last Filed: 12/25/23 20:30> Condition: Stable <Judy Felix APRN - Last Filed: 12/25/23 20:30>
--- NOTE | 2023-12-24 17:18 | PC.NURSE ---
EDP Judy Felix made aware of pt bp
[2023-12-24 17:25] LABS: Basophils Absolute Auto 0.1 K/mm3 (0.0-0.1); Basophils Percent Auto 0.4 % (0.2-1.2); Eosinophils Absolute Auto 0.2 K/mm3 (0-0.3); Eosinophils Percent Auto 0.5 % (0-4.4); Hematocrit 33.6 % (37.0-47.0); Hemoglobin 10.1 g/dL (12.0-15.0); Lymphocytes Absolute Auto 1.84 K/mm3 (0.9-3.2); Mean Corpuscular HGB Conc 30.1 g/dl (32-36); Mean Corpuscular Hemoglobin 23.9 pg (26-34); Mean Corpuscular Volume 79.4 fl (80-100); Mean Platelet Volume 8.2 fl (7.4-10.4); Monocytes Absolute Auto 0.8 K/mm3 (0.1-0.6); Monocytes Percent Auto 2.5 % (2.6-8.5); Neutrophils Percent Auto 88.6 % (45.5-73.1); Platelet Count Result 585 k/mm3 (150-375); Red Blood Count 4.23 M/mm3 (4.2-5.4); Red Cell Distribution Width 14.8 % (11.5-14.5); White Blood Count 30.5 K/mm3 (4.5-10.0)
[2023-12-24] MEDS: SODIUM CHLORIDE 0.9% IV 1,000 ML 999 ML IV CONT (17:31)
[2023-12-24 17:41] LABS: INR 1.2; Partial Thromboplastin Time 34.3 Seconds (22.3-36.8); Prothrombin Time 15.2 Seconds (11.1-14.7)
[2023-12-24 17:44] LABS: Alanine Aminotransferase 11 U/L (6-35); Albumin Level 3.5 g/dL (3.5-5.1); Alkaline Phosphatase 152 U/L (38-126); Anion Gap 13 mmol/L (4-12); Aspartate Amino Transferase 15 U/L (14-36); Bilirubin,Total 0.6 mg/dL (0.2-1.3); Blood Urea Nitrogen 25 mg/dL (7-17); Calcium 10.1 mg/dL (8.4-10.2); Carbon Dioxide 23 mmol/L (22-30); Chloride 97 mmol/L (98-107); Estimated CRCL calculation 56 ml/min; Estimated Glomerular Filt Rate 56; Glucose 281 mg/dL (65-110); Potassium 4.1 mmol/L (3.4-5.0); Sodium 133 mmol/L (137-145)
[2023-12-24 17:52] LABS: CRP 18.3 mg/dL (<1.0)
[2023-12-24 18:04] LABS: Magnesium 1.8 mg/dL (1.6-2.3)
[2023-12-24 18:16] LABS: Beta-Hydroxybutyrate/Acetoacetate 0.23 mmol/L (0.02-0.27); NT Pro B Type Natriuretic Pept 95 pg/mL (19.9-100); Troponin I < 0.012 ng/mL (0.000-0.034)
[2023-12-24 18:25] LABS: D Dimer 5.99 ug/mL (<0.48)
[2023-12-24] MEDS: SODIUM CHLORIDE 0.9% IV 2,700 ML/1,000 ML BAG 999 ML IV CONT ×3 (18:40→20:18)
[2023-12-24] MEDS: CEFEPIME 2 GM/NS 50 ML 2 GM/50 ML BAG IVPB (18:42)
--- NOTE | 2023-12-24 18:53 | PC.NURSE ---
RN palpitated large nodule to left neck that extends around to anterior neck. Pt rates pain 10. States has been there a week with increasing in size
[2023-12-24 19:55] LABS: Add Urine Microscopic? NO; Appearance Urine Clear (Clear); Bilirubin Urine Negative (Negative); Blood Urine Negative (Negative); Color Urine Yellow (Yellow); Glucose Urine UA Negative (Negative); Ketones Urine Negative (Negative); Leukocyte Esterase Ur Negative LEU/UL (Negative); Nitrate Urine Negative (Negative); Protein Urine Negative (Negative); Specific Grav Ur 1.032 (1.001-1.035); Urobilinogen Urine 0.2 mg/dL (<2.0); pH Urine 5.5 (5.0-9.0)
[2023-12-24] MEDS: VANCOMYCIN 1,250 MG/NS 250 ML 1,250 MG/250 ML BAG 166.67 MG IVPB (20:07)
[2023-12-24] MEDS: HEPARIN SOD/D5W 100 UNITS/ML 25,000 UNITS/250 ML BAG 13 UNITS IV CONT (20:08)
[2023-12-24] MEDS: HEPARIN SODIUM 5,000 UNITS/ML VIAL 5500 UNITS IV PUSH (20:08)
[2023-12-24 20:21] LABS: Reflex Lactic Acid Yes or No Add Lactic
[2023-12-24] MEDS: MORPHINE SULFATE (*CRX) 4 MG/ML INJ IV PUSH (20:30)
[2023-12-24 20:54] LABS: Lactic Acid 1.9 mmol/L (0.7-2.0)
[2023-12-24 21:45] LABS: Procalcitonin 0.6 ng/mL
[2023-12-24] MEDS: VANCOMYCIN 1,000 MG/NS 250 ML 1,000 MG/250 ML BAG 250 MG IVPB (21:59)
--- NOTE | 2023-12-24 22:22 | PC.NURSE ---
Report called to BENJAMIN Dumont @ [phone] Pt to be taken to floor after admission assessment is finished.
[2023-12-24] MEDS: SODIUM CHLORIDE 0.9% IV 1,000 ML 100 ML IV CONT (23:42)
[2023-12-24] MEDS: MAGNESIUM SULF 2 GM/WATER 50ML 2 GM/50 ML BAG IVPB (23:42)
[2023-12-24 23:47] LABS: Glucose Point of Care 144 mg/dl (65-105)
[2023-12-24 23:55] LABS: MRSA (PCR) NOT DETECTED (NOT DETECTE)
[2023-12-25] VITALS (13 sets, daily range): BP systolic 121–148; BP diastolic 49–60; PULSE 98–132; RESP 18–20; TEMP 36.6–38.2; O2SAT 92–96
--- NOTE | 2023-12-25 | ECHO_ITS ---
Patient Info Name: Mariposa Sheikh Age: 63 years : 1960 Gender: Female Ht: 66 in Wt: 203 lbs BSA: 2.10 m2 HR: 107 bpm BP: 121 / 49 mmHg Heart Rhythm: Sinus Rhythm Technical Quality: Fair Exam Date: 12/25/2023 9:56 AM Exam Location: Echo Lab Patient Status: Inpatient Admit Date: 12/25/2023 Staff Ordering Physician: Delia Jeter DO Tour Counselor: Mely Cardenas RUST Attending Provider: Delia Jeter DO Referring Physician: Corona OQUENDO; Exam Type: CA echo doppler color flow Study Info Indications R06.00 - Dyspnea, unspecified I26.90 - Septic pulmonary embolism without acute cor pulmonale Complete two-dimensional, color flow and Doppler transthoracic echocardiogram is performed. Summary 1. Left ventricular chamber dimension is normal. 2. Left ventricular systolic function is normal, estimated at >70%. 3. The left ventricular diastolic function is grade I diastolic dysfunction. 4. Right ventricular systolic function is normal. 5. Left atrial chamber dimension is mildly enlarged. 6. There is mild tricuspid valve regurgitation. 7. There is small pericardial effusion. Left Ventricle Left ventricular chamber dimension is normal. Left ventricular systolic function is normal, estimated at >70%. There is no increased left ventricular wall thickness. The left ventricular diastolic function is grade I diastolic dysfunction. Right Ventricle Right ventricular chamber dimension is normal. Right ventricular systolic function is normal. Left Atria Left atrial chamber dimension is mildly enlarged. Right Atria Right atrial chamber dimension is normal. Atrial Septum Intact interatrial septum visualized by color flow imaging. Aortic Valve The aortic valve is trileaflet. There is no aortic valve stenosis. There is no aortic valve regurgitation. There is mild aortic valve calcification. Pulmonic Valve The pulmonic valve is not well visualized. There is no pulmonic regurgitation. Mitral Valve There is trace mitral valve regurgitation. Tricuspid Valve There is mild tricuspid valve regurgitation. Pericardium/Pleural There is small pericardial effusion. Inferior Vena Cava Normal inferior vena cava with >50% collapse upon inspiration consistent with normal right atrial pressure, 3 mmHg. Aorta The aortic root size at the sinus of Valsalva is normal. Left Ventricular Outflow Tract Name Value Normal LVOT 2D LVOT Diameter 2.0 cm LVOT Doppler LVOT Peak Gradient 3 mmHg LVOT Mean Gradient 2 mmHg LVOT VTI 14 cm LVOT VTI/AV VTI Ratio 0.7 LVOT Stroke Volume 43 ml LVOT CO 4.3 l/min LVOT CI 2.0 l/min/m2 Pulmonic Valve Name Value Normal PV Doppler PV Peak Gradient 5 mmHg Mitral Valve Name Value Normal MV Doppler MV Decel Dane 404 cm/s2 MV PHT 53 ms MV Area (PHT) 4.2 cm2 4.0-5.0 MV Diastolic Function MV E Peak Velocity 73 cm/s MV A Peak Velocity 84 cm/s MV E/A 0.9 MV Decel Time 182 ms Tricuspid Valve Name Value Normal TV Regurgitation Doppler TR Peak Velocity 258 cm/s TR Peak Gradient 27 mmHg Estimated PAP/RSVP RA Pressure 3 mmHg <=5 PA Systolic Pressure 30 mmHg <36 RV Systolic Pressure 30 mmHg <36 Aorta Name Value Normal Ascending Aorta Ao Root Diameter (MM) 2.3 cm Ao Root Diam Index (MM) 1.1 cm/m2 Aortic Valve Name Value Normal AV Doppler AV Peak Velocity 158 cm/s AV Peak Gradient 10 mmHg AV Mean Gradient 5 mmHg AV VTI 21 cm AV Area (Cont Eq VTI) 2.0 cm2 >=3.0 AV Area (Cont Eq Pascual) 1.8 cm2 AV Regurgitation 2D LVOT Area 3.1 cm2 Ventricles Name Value Normal LV Dimensions 2D/MM IVS Diastolic Thickness (2D) 1.1 cm 0.6-1.0 IVS Diastole Thickness (MM) 0.6 cm 0.6-0.9 LVID Diastole (2D) 4.4 cm 3.8-5.2 LVID Diastole (MM) 5.3 cm 3.8-5.2 LVIW Diastolic Thickness (2D) 1.0 cm 0.6-0.9 LVIW Diastolic Thickness (MM) 1.0 cm 0.6-0.9 LVID Systole (2D) 2.4 cm 2.2-3.5 LVID Systole (MM) 2.7 cm 2.2-3.5 LVOT Diameter 2.0 cm LV Mass (2D Cubed) 161.33 g 67.00-162.00 LV Mass Index (2D Cubed) 77 g/m2 43-95 Relative Wall Thickness (2D) 0.47 LV Mass (MM Cubed) 155.84 g 67.00-162.00 LV Mass Index (MM Cubed) 74 g/m2 43-95 Relative Wall Thickness (MM) 0.39 LV Fractional Shortening/Ejection Fraction 2D/MM LV Fractional Shortening (2D) 47 % 27-45 LV Fractional Shortening (MM) 50 % 27-45 LV EF (MM Teicholz) 81 % 54-74 LV EF (2D Teicholz) 78 % 54-74 LV Diastolic Volume (4C MOD) 72 ml LV EF (4C MOD) 77 % LV Diastolic Volume (2C MOD) 63 ml LV EF (2C MOD) 70 % LV Diastolic Volume (BP MOD) 67 ml 46-106 LV Diastolic Volume Index (BP MOD) 32 ml/m2 29-61 LV Systolic Volume (BP MOD) 18 ml 14-42 LV Systolic Volume Index (BP MOD) 9 ml/m2 8-24 LV EF (BP MOD) 72 % 54-74 LV Diastolic Length (4C) 7.3 cm LV Systolic Length (4C) 5.7 cm LV Stroke Volume (4C MOD) 55 ml Atria Name Value Normal LA Dimensions LA Dimension (MM) 4.2 cm 2.7-3.8 LA Volume (4C A-L) 35 ml LA Volume (BP A-L) 38 ml RA Dimensions RA Area (4C) 11.5 cm2 <=18.0 Report Signatures
[2023-12-25 00:38] LABS: Free T4 Free Thyroxine Reflex 1.58 ng/dL (0.78-2.19)
[2023-12-25] MEDS: oxyCODONE HCL (*CRX) 5 MG TAB IR PO ×2 (01:05→17:01)
[2023-12-25 02:46] LABS: Basophils Absolute Auto 0.1 K/mm3 (0.0-0.1); Basophils Percent Auto 0.3 % (0.2-1.2); Eosinophils Absolute Auto 0.1 K/mm3 (0-0.3); Eosinophils Percent Auto 0.3 % (0-4.4); Hematocrit 28.6 % (37.0-47.0); Hemoglobin 8.8 g/dL (12.0-15.0); Immature Granulocyte Absolute 0.53 K/mm3 (0.00-0.031); Immature Granulocyte Percent A 1.8 % (0-0.5); Lymphocytes Absolute Auto 0.55 K/mm3 (0.9-3.2); Lymphocytes Percent Auto 1.9 % (18.3-44.2); Mean Corpuscular HGB Conc 30.8 g/dl (32-36); Mean Corpuscular Hemoglobin 24.6 pg (26-34); Mean Corpuscular Volume 79.9 fl (80-100); Mean Platelet Volume 8.2 fl (7.4-10.4); Monocytes Absolute Auto 0.6 K/mm3 (0.1-0.6); Monocytes Percent Auto 2.1 % (2.6-8.5); Neutrophils Absolute Auto 27.5 K/mm3 (1.3-6.7); Neutrophils Percent Auto 93.6 % (45.5-73.1); Platelet Count Result 372 k/mm3 (150-375); Red Blood Count 3.58 M/mm3 (4.2-5.4); Red Cell Distribution Width 14.8 % (11.5-14.5); White Blood Count 29.4 K/mm3 (4.5-10.0)
[2023-12-25 02:57] LABS: Alanine Aminotransferase 8 U/L (6-35); Albumin Level 2.7 g/dL (3.5-5.1); Alkaline Phosphatase 142 U/L (38-126); Anion Gap 8 mmol/L (4-12); Aspartate Amino Transferase 10 U/L (14-36); Bilirubin,Total 0.5 mg/dL (0.2-1.3); Blood Urea Nitrogen 17 mg/dL (7-17); Calcium 8.7 mg/dL (8.4-10.2); Carbon Dioxide 23 mmol/L (22-30); Chloride 102 mmol/L (98-107); Estimated CRCL calculation 70 ml/min; Estimated Glomerular Filt Rate > 60; Glucose 182 mg/dL (65-110); Potassium 3.5 mmol/L (3.4-5.0); Sodium 133 mmol/L (137-145)
--- NOTE | 2023-12-25 03:50 | PM.IMHP ---
H&P: HPI History of Present Illness Date/Time: 12/25/23 03:50 Chief Complaint: Multiple complaints Narrative: 63-year-old female with past medical history of essential hypertension, type 2 diabetes mellitus, postablative hypothyroidism, obesity, uterine cancer status post radiation therapy and chemotherapy in 2022 who presented to the ER with multiple complaints. The patient reports that for the last couple of months she has been having elevated blood sugars but over the last 2 weeks they have increased more. Her glucoses have been in the 2 and 300s. She reports that just prior to having the elevated glucoses she did have what she thought was a virus because she had a random fever of about 101. This was approximately 3 weeks ago. She denied having any accompanying symptoms to that. At about the same time she developed a higher glucoses she started having some pain in her left side of her neck. The area hurt with palpation and with position changes of her neck. She contacted her primary care provider's office through the portal and they recommended that she apply ice packs and take NSAIDs for her discomfort. She/they thought symptoms could be due to a muscle spasm. When the patient's pain got progressively worse and the area of her neck seemed to be getting larger she went to urgent care on the and was given a script for prednisone. She completed the course of prednisone. Despite the prednisone she noticed area of her neck getting even larger. She reports that over the course of the last several days she has actually noticed a sensation of fullness in her throat when he tries to swallow due to pressure from that area. She reports that she has moderate and sometimes severe pain over the area of swelling. She reported that the naproxen she usually takes for chronic low back pain did seem to help the pain somewhat a initially but as symptoms progressed it is now only providing minimal relief. In the ER she has not have significant leukocytosis, hypokalemia, and tachycardia. She received 30 mL/kilos fluid bolus, blood cultures were obtained and empiric antibiotic therapy was started with cefepime and vancomycin. CT of soft tissues of the neck demonstrated 4.9 x 5.1 x 6.3 cm mass left lower neck beginning and inferior to the left carotid bifurcation and extending inferiorly posterior to the left subclavian which displaces and severely narrows the adjacent left inferior jugular vein. Mass is heterogeneous cystic and solid in appearance. Differential included necrotic lymph node, other necrotic mass or abscess. She denies any recent surgeries or injuries in the area. She also reports that she has been having 4-5 months of dyspnea. She reports that initially it just felt like she could not take a deep breath. But over the last week or 2 she has noticed dyspnea with exertion. She reports that the dyspnea only gets better with rest. She usually requires 20-30 minutes of recovery time after exerting herself. She denies any orthopnea or paroxysmal nocturnal dyspnea. She has not had an echocardiogram. She reports that she had pulmonary function testing performed prior to receiving her radiation therapy in 2022 for her endometrial cancer. The patient reported that what made her finally come into the ER today was because she developed palpitations, worsening shortness of breath and acute onset of tingling/numbness in her toes and in the left hand. She reports that her tingling and numbness symptoms improved after she received magnesium sulfate on arrival to the medical floor. She reports that the pain in her neck is been persistent she has not noticed any improvement in symptoms since presentation. But she does not feel shortness breath that she did. Her heart rate has come down from the 130s down to the low 100s. She reported that she felt so short of breath that she noticed spots before her eyes and thought that she would pass out when she was in the triage area of the ER. Her initial blood pressures in the ER or his lows 86/52 but rebounded after fluid boluses up to the 130s systolic. Patient was noted to be anemic in the ER. She denies any known history of significant anemia. Patient reports that she always bruises easily and has done so for many years. Review of Systems Review of Systems: 12 systems were reviewed with pertinent positives and negatives per HPI. Except as documented in the HPI, all other systems were reviewed and are negative. [facility] Past Medical History Medical History (Updated 12/25/23 @ 04:15 by Delia Jeter DO) Anxiety Arthritis Back pain Essential hypertension GERD (gastroesophageal reflux disease) Graves disease Hyperlipemia Hypertension Incidental pulmonary nodule, greater than or equal to 8mm CT scan 06/2023 demonstrated stable 8 mm indeterminate pulmonary nodule left lower lobe according to reports from [facility]. 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, treated with hysterectomy with bilateral salpingo oophorectomy and radiation therapy Migraines Obesity (BMI 30-39.9) Postablative hypothyroidism Seborrheic keratosis Thyroid disease Type 2 diabetes mellitus Surgical History Surgical History (Updated 12/25/23 @ 04:15 by Delia Jeter DO) History of delivery History of D&C History of hysteroscopy History of total abdominal hysterectomy and bilateral salpingo-oophorectomy (11/13/22) Family History Family History Mother Diabetes mellitus Heart disease Sibling Hypertension Father Lung cancer Social History Social History (Updated 12/25/23 @ 09:53 by Delia Jeter DO) Social History: Patient lives in [place] with her of 47 years. 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 She is a former smoker but quit smoking in 1988. She denies any significant alcohol or illicit substance use. She has a set of fraternal twins daughter and a son that are 33 years old. Code status: Full code Surrogate decision maker: Denzel () Smoking packs per day: 0.75 Smoking cigarettes per day: 15.0 Years smoked: 12 Smoking pack-years: 9.00 Smoking status: Former smoker Tobacco type: cigarettes Smoking end date: 07/30/88 Alcohol intake: never Substance use: never Substance use type: does not use Do You Feel Safe in your Home?: Yes Lack of Transportation: No Lack of Food: Never True Current Housing: I Have Housing Concerned About Future Housing: No Difficulty Paying Gas/Electric Bills: No Difficulty Paying for Meds: No Currently Unemployed: No Education: High School Diploma/GED Difficulty w/ Childcare or Family Care: No Living arrangements: with family 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 Gender identity (if verbalized by the patient): Female Sexual Orientation (if Verbalized by the Patient): Straight or Heterosexual Spiritual care concerns: No Meds Home Medications and Allergies Home Medications Medication Instructions Recorded Confirmed Type levothyroxine 112 mcg capsule 112 mcg PO DAILY 10/27/20 12/24/23 History simvastatin 20 mg tablet 20 mg PO DAILY 10/27/20 12/24/23 History hydroxyzine HCl 25 mg tablet 25 mg PO PRN PRN nerves/itching 08/09/22 12/24/23 History metformin 1,000 mg tablet 1,000 mg PO BID 08/09/22 12/24/23 History naproxen 500 mg tablet 500 mg PO PRN PRN Pain 08/09/22 12/24/23 History cholecalciferol (vitamin D3) 50 50 mcg PO DAILY 12/24/23 12/24/23 History mcg (2,000 unit) capsule (Vitamin D3) lisinopril 20 mg tablet 20 mg PO DAILY 12/24/23 12/24/23 History Allergies Allergy/AdvReac Type Severity Reaction Status Date / Time No Known Allergies Allergy Verified 12/24/23 22:32 Vital Signs Vital Signs - 24 hr 12/24/23 16:05 12/24/23 16:57 12/24/23 16:26 Temperature 98.0 F Pulse Rate 132 H 117 H Respiratory Rate 20 17 16 Blood Pressure 99/56 L 86/52 L Pulse Oximetry 100 97 99 Oxygen Delivery 12/24/23 16:26 12/24/23 16:26 12/24/23 19:10 Temperature Pulse Rate 99 100 103 H Respiratory Rate 16 13 Blood Pressure 137/48 L 134/46 L Pulse Oximetry 98 97 Oxygen Delivery 12/24/23 20:00 12/24/23 21:21 12/24/23 23:05 Temperature 97.4 F L Pulse Rate 104 H 103 H 104 H Respiratory Rate 14 15 17 Blood Pressure 139/65 127/56 L 139/65 Pulse Oximetry 97 97 98 Oxygen Delivery 12/25/23 00:00 Temperature Pulse Rate Respiratory Rate Blood Pressure Pulse Oximetry Oxygen Delivery Room Air Exam Narrative: Weight 92 kg BMI 32.7 Const: Other: Obese, no acute distress, appears stated age HENMT: Other: Head is normocephalic atraumatic, mucous membranes are tacky, no oral pharyngeal erythema, patient has multiple missing teeth but remainder of dentition appears fair, a few small nontender submandibular lymph nodes on the right, patient has a large area of increased tissue on the left neck with large tender palpable mass that starts at the clavicle in feels as if it actually trans under the clavicle and wraps laterally around her near the sternocleidomastoid mass measuring 6-7 cm. Mass is acutely tender. No induration or increased warmth Eyes: Other: Pupils are equal and reactive, no scleral icterus, positive conjunctival pallor Neck: Other: Please see exam under HEENT Resp: Other: Clear to auscultation bilaterally, no increased work of breathing Cardio: Other: Sinus tachycardia, 2+ bilateral radial pedal pulses GI: Other: Soft, nontender, nondistended, positive bowel sounds Skin: Other: Generalized pallor, multiple scattered areas of bruising at venipuncture sites Neuro: Other: Alert orient x4, speech is clear, no facial asymmetry, no localizing neurologic deficits of fine or gross motor skills Extrem: Other: Patient does not have increased edema to left upper extremity compared to right, equal airset molder strength bilateral upper extremities, moves bilateral lower extremities equally, no cyanosis or edema of lower extremities, no calf pain or tenderness Psych: Other: Extremely pleasant, cooperative, appropriate mood and affect, judgment and insight intact H&P: Results Labs Labs: Laboratory Tests 12/25/23 02:41 12/25/23 02:41 12/24/23 12/24/23 12/24/23 16:15 17:10 17:12 WBC 30.5 H RBC 4.23 Hgb 10.1 L Hct 33.6 L MCV 79.4 L MCH 23.9 L MCHC 30.1 L RDW 14.8 H Plt Count 585 H MPV 8.2 Immature Gran % (Auto) 2.0 H Neut % (Auto) 88.6 H Lymph % (Auto) 6.0 L [place] % (Auto) 2.5 L Eos % (Auto) 0.5 Baso % (Auto) 0.4 Lymph # (Auto) 1.84 [place] # (Auto) 0.8 H Eos # (Auto) 0.2 Baso # (Auto) 0.1 Abs Immat Gran (auto) 0.60 H Absolute Neuts (auto) 27.0 H Absolute Nucleated RBC 0.000 Nucleated RBC % 0.0 PT 15.2 H INR 1.2 APTT 34.3 D-Dimer 5.99 H Sodium 133 L Potassium 4.1 Chloride 97 L Carbon Dioxide 23 Anion Gap 13 H BUN 25 H Creatinine 1.00 Estim Creat Clear Calc 56 Estimated GFR 56 L Glucose 281 H POC Capillary Glucose 272 H Lactic Acid 4.0 H Calcium 10.1 Magnesium Total Bilirubin 0.6 AST 15 ALT 11 Alkaline Phosphatase 152 H Troponin I C-Reactive Protein 18.3 H NT-Pro-B Natriuret Pep Total Protein 7.0 Albumin 3.5 Beta-Hydroxybutyrate/Acetoacetate Procalcitonin 0.6 TSH (Reflex) 8.040 H Free T4 1.58 Total T3 0.70 L Urine Color Urine Appearance Urine pH Ur Specific [place] Urine Protein Urine Glucose (UA) Urine Ketones Ur Blood (Man) Urine Nitrate Urine Bilirubin Urine Urobilinogen Leukocyte Esterase Rfl Nasal MRSA (PCR) 12/24/23 12/24/23 12/24/23 17:13 19:47 20:34 WBC RBC Hgb Hct MCV MCH MCHC RDW Plt Count MPV Immature Gran % (Auto) Neut % (Auto) Lymph % (Auto) [place] % (Auto) Eos % (Auto) Baso % (Auto) Lymph # (Auto) [place] # (Auto) Eos # (Auto) Baso # (Auto) Abs Immat Gran (auto) Absolute Neuts (auto) Absolute Nucleated RBC Nucleated RBC % PT INR APTT D-Dimer Cancelled Sodium Potassium Chloride Carbon Dioxide Anion Gap BUN Creatinine Estim Creat Clear Calc Estimated GFR Glucose POC Capillary Glucose Lactic Acid 1.9 Calcium Magnesium 1.8 Total Bilirubin AST ALT Alkaline Phosphatase Troponin I < 0.012 C-Reactive Protein NT-Pro-B Natriuret Pep 95 Total Protein Albumin Beta-Hydroxybutyrate/Acetoacetate 0.23 Procalcitonin TSH (Reflex) Free T4 Total T3 Urine Color Yellow Urine Appearance Clear Urine pH 5.5 Ur Specific [place] 1.032 Urine Protein Negative Urine Glucose (UA) Negative Urine Ketones Negative Ur Blood (Man) Negative Urine Nitrate Negative Urine Bilirubin Negative Urine Urobilinogen 0.2 Leukocyte Esterase Rfl Negative Nasal MRSA (PCR) 12/24/23 12/24/23 12/25/23 22:10 23:45 02:41 WBC 29.4 H RBC 3.58 L Hgb 8.8 L Hct 28.6 L MCV 79.9 L MCH 24.6 L MCHC 30.8 L RDW 14.8 H Plt Count 372 MPV 8.2 Immature Gran % (Auto) 1.8 H Neut % (Auto) 93.6 H Lymph % (Auto) 1.9 L [place] % (Auto) 2.1 L Eos % (Auto) 0.3 Baso % (Auto) 0.3 Lymph # (Auto) 0.55 L [place] # (Auto) 0.6 Eos # (Auto) 0.1 Baso # (Auto) 0.1 Abs Immat Gran (auto) 0.53 H Absolute Neuts (auto) 27.5 H Absolute Nucleated RBC 0.000 Nucleated RBC % 0.0 PT INR APTT 43.0 H D-Dimer Sodium 133 L Potassium 3.5 Chloride 102 Carbon Dioxide 23 Anion Gap 8 BUN 17 Creatinine 0.80 Estim Creat Clear Calc Estimated GFR Glucose POC Capillary Glucose 144 H Lactic Acid Calcium Magnesium Total Bilirubin AST ALT Alkaline Phosphatase Troponin I C-Reactive Protein NT-Pro-B Natriuret Pep Total Protein Albumin Beta-Hydroxybutyrate/Acetoacetate Procalcitonin TSH (Reflex) Free T4 Total T3 Urine Color Urine Appearance Urine pH Ur Specific [place] Urine Protein Urine Glucose (UA) Urine Ketones Ur Blood (Man) Urine Nitrate Urine Bilirubin Urine Urobilinogen Leukocyte Esterase Rfl Nasal MRSA (PCR) Not detected 12/25/23 12/25/23 12/25/23 02:41 02:41 02:41 WBC RBC Hgb Hct MCV MCH MCHC RDW Plt Count MPV Immature Gran % (Auto) Neut % (Auto) Lymph % (Auto) [place] % (Auto) Eos % (Auto) Baso % (Auto) Lymph # (Auto) [place] # (Auto) Eos # (Auto) Baso # (Auto) Abs Immat Gran (auto) Absolute Neuts (auto) Absolute Nucleated RBC Nucleated RBC % PT INR APTT D-Dimer Sodium Potassium Chloride Carbon Dioxide Anion Gap BUN Creatinine 0.80 Estim Creat Clear Calc 70 70 Estimated GFR > 60 > 60 Glucose 182 H POC Capillary Glucose Lactic Acid Calcium 8.7 Magnesium Total Bilirubin 0.5 AST 10 L ALT 8 Alkaline Phosphatase 142 H Troponin I C-Reactive Protein NT-Pro-B Natriuret Pep Total Protein 6.0 L Albumin 2.7 L Beta-Hydroxybutyrate/Acetoacetate Procalcitonin TSH (Reflex) Free T4 Total T3 Urine Color Urine Appearance Urine pH Ur Specific [place] Urine Protein Urine Glucose (UA) Urine Ketones Ur Blood (Man) Urine Nitrate Urine Bilirubin Urine Urobilinogen Leukocyte Esterase Rfl Nasal MRSA (PCR) Impressions Chest CTA 12/24/23 19:22 IMPRESSION: Subsegmental, nonocclusive emboli in the bilateral upper lobes and right lower lobe. Low clot burden. No evidence of right heart strain. Small pericardial effusion. Multiple pulmonary nodules measuring up to 8mm, recommend follow-up low-dose noncontrast CT of the chest in 3-6 months.. Soft Tissue Neck CT 12/24/23 19:34 IMPRESSION: Heterogeneous, likely cystic and solid left lower neck mass measuring up to 6.3 cm. May represent a necrotic lymph node, other necrotic mass, or abscess. If there has been history of recent catheterization on the left, vascular injury including pseudoaneurysm could be considered, but this is thought to be much less likely. EKG: Personally reviewed and interpreted. Cardiology interpretation pending. Telemetry also reviewed. Sinus tachycardia with a rate of 130 normal interval Assessment and Plan Assessment and plan (1) Multiple subsegmental pulmonary emboli without acute cor pulmonale: Code(s): I26.94 - Multiple subsegmental thrombotic pulmonary emboli without acute cor pulmonale Status: Acute (2) Sepsis: Code(s): A41.9 - Sepsis, unspecified organism Status: Acute (3) Mass in neck: Code(s): R22.1 - Localized swelling, mass and lump, neck Status: Acute (4) Type 2 diabetes mellitus with hyperglycemia, without long-term current use of insulin: Code(s): E11.65 - Type 2 diabetes mellitus with hyperglycemia Status: Acute (5) Postablative hypothyroidism: Code(s): E89.0 - Postprocedural hypothyroidism Status: Acute (6) Essential hypertension: Code(s): I10 - Essential (primary) hypertension Status: Acute (7) Pericardial effusion: Code(s): I31.39 - Other pericardial effusion (noninflammatory) Status: Acute (8) Microcytic anemia: Code(s): D50.9 - Iron deficiency anemia, unspecified Status: Acute Plan The patient has a large area of mass in the left anterior lower neck just at the level of the clavicle extending under the clavicle and laterally. She has associated leukocytosis is most likely multifactorial due to either infection, steroid use and or underlying malignancy pre that is previously unknown? Patient meets sepsis criteria with tachycardia, tachypnea, leukocytosis and CT findings of possible clear and or necrotic neck mass. Blood cultures are pending. Patient was started on empiric antibiotic therapy with cefepime and vancomycin. Directly with the probably consider narrowing antibiotic coverage but given that the patient's white count remains quite elevated will continue for for the moment until at least blood cultures come back negative for 48 hours. Patient would benefit from biopsy or aspiration of the neck mass. However General surgery states that the patient can be followed as outpatient after initial treatment with antibiotic therapy before addressing the mass. We may need to consider discussing the patient's case with Interventional Radiology. This is made more difficult by fact the patient is now on heparin drip for small subsegmental PEs. Given the pulmonary embolism again and more concerned for undiagnosed malignancy that could be causing some of the patient's symptoms. Will check echocardiogram to evaluate cardiac structure and function and to check for possible right heart strain. Continue monitor the patient on telemetry. Tachycardia has improved with IV fluids and antibiotics as well as heparin drip. The patient does have some microcytic anemia given the patient is on heparin drip will need to monitor hemoglobin closely. Will check anemia labs. Patient does have hyperglycemia due to infection and steroid use. Will check A1c and will place patient on moderate dose sliding scale insulin with Accu-Cheks a.c. HS. The patient is TSH is elevated her T4 is a is mid range with her home supplements but T3 is low. Patient may have some component of euthyroid sick due to acute infection. Although the patient's thyroid does feel slightly larger on exam radiology did not mention this as being particularly large on imaging. Consider repeat TSH as outpatient in 6 weeks. Will increase patient's home levothyroxine to 125 mcg Will resume patient's home antihypertensive medications and will monitor. Quality VTE Prophylaxis VTE prophylaxis: pharmacologic ordered (Heparin GGT per protocol.) Hospitalist [facility] Advance Care Plan I have confirmed that the patient's Advanced Care Plan is present, code status is documented, or surrogate decision maker is listed in patient medical record.: Yes Medication Reconciliation I have utilized all available resources to obtain, update and review the patients current medications (includes all prescriptions, OTC, herbals, cannabis, and nutritional supplements).: Yes
[2023-12-25] MEDS: HEPARIN SODIUM 5,000 UNITS/ML VIAL 5500 UNITS IV PUSH ×2 (03:52→11:36)
[2023-12-25] MEDS: HEPARIN SOD/D5W 100 UNITS/ML 25,000 UNITS/250 ML BAG 16 UNITS IV CONT (03:55)
[2023-12-25] MEDS: CEFEPIME 2 GM/NS 50 ML 2 GM/50 ML BAG IVPB ×2 (05:10→17:01)
[2023-12-25] MEDS: LEVOTHYROXINE SODIUM 112 MCG TABLET PO (05:10)
[2023-12-25 07:59] LABS: Glucose Point of Care 227 mg/dl (65-105)
[2023-12-25] MEDS: metFORMIN HCL 500 MG TABLET 1000 MG PO (08:36)
[2023-12-25] MEDS: SIMVASTATIN 20 MG TABLET PO (08:37)
[2023-12-25] MEDS: INSULIN ASPART (*BKC) 100 UNITS/ML SUB-Q ×2 (08:37→22:43)
[2023-12-25] MEDS: CHOLECALCIFEROL 1,000 UNITS TABLET 2000 UNITS PO (08:37)
[2023-12-25] MEDS: lisinopriL 20 MG TABLET PO (08:37)
[2023-12-25] MEDS: HYDROmorphone HCL INJ (*CRX) 1 MG/ML SYR 0.5 MG IV PUSH (08:41)
[2023-12-25 10:11] LABS: Reticulocyte Percent 2.24 % (0.7-4.3); Reticulocytes Absolute 0.08 10^6/uL (0.02-0.10)
[2023-12-25 11:36] LABS: Glucose Point of Care 198 mg/dl (65-105)
[2023-12-25 12:33] LABS: Iron 25 ug/dL (37-170)
[2023-12-25 12:43] LABS: Percent Iron Saturation 12 % (20-50)
[2023-12-25] MEDS: HEPARIN SOD/D5W 100 UNITS/ML 25,000 UNITS/250 ML BAG 19 UNITS IV CONT (13:11)
[2023-12-25] MEDS: SODIUM CHLORIDE 0.9% IV 1,000 ML 100 ML IV CONT ×2 (13:12→23:56)
[2023-12-25 13:29] LABS: Folic Acid 3.7 ng/mL (2.76->20)
[2023-12-25 16:42] LABS: Glucose Point of Care 181 mg/dl (65-105)
[2023-12-25] MEDS: CYANOCOBALAMIN INJ 1,000 MCG/ML VIAL 1000 MCG IM (17:01)
[2023-12-25 17:38] LABS: Partial Thromboplastin Time 67.5 Seconds (22.3-36.8)
--- NOTE | 2023-12-25 17:40 | P.PNCROSS_ITS ---
Event Note Event Note Event Note: Interval history: This is a 63-year-old female who presented to the hospital on 12/25/2023 with multiple complaints including elevated blood sugars the last 2 weeks, mass on the left side of her neck, random fever of 101. (see H&P for detailed history)Workup in the hospital included a chest CTA which showed subsegmental nonocclusive emboli in the bilateral upper lobes and right lower lobe, low clot burden no evidence of right heart strain, small pericardial effusion, multiple pulmonary nodules measuring up to 8 mm were also identified. Soft tissue neck CT shown a 4.9 x 5.1 x 6.3 cm mass in the left lower neck beginning inferior to the left carotid bifurcation and extending inferiorly posteriorly to the left clavicle which displaces and severely narrows the adjacent left inferior jugular vein. Initial labs showed a white blood cell count of 30.5, hemoglobin 10.1, MCV 79.4, platelet count 585, D-dimer 5.99, sodium 133, chloride 97, anion gap was high 13, EGFR 56, blood sugars ranging 144-272, lactic acid was 4.0> 1.9, magnesium 1.8, C reactive protein 18.3, TSH 8.040, total T3 0.70, free T4 1.58. UA was obtained and was negative. MRSA was not detected. She was originally started on cefepime, azithromycin, and vancomycin. Considering MRSA was negative we went ahead and deescalated the vancomycin. Echocardiogram showed greater than 70% EF with a normal LV systolic function, grade 1 diastolic dysfunction, small pericardial effusion. Subjective: Patient denies any fever, chills, nausea, vomiting, diarrhea, abdominal pain, chest pain, shortness a breath. She does report pain in her neck and a sore throat on the left side where the mass is located. Labs and imaging reviewed. She does report that she has had uterine cancer in the past and had a hysterectomy. She also reports that she has hyperthyroidism which she has had treatment for. She is currently on Synthroid 125 mcg daily. We will get thyroid studies in addition to her workup. She states that there has been lung cancer in her family as well as her brother from some form of cancer that she said was said to be everywhere. Unsure if this would be lymphoma related or not. She denies any recent illness. She did state that when she started noticing the neck pain she went to her primary care doctor who gave her a muscle relaxer and a anti inflammatory medication which she thought seem to help a little bit however the mass grew and she went back to her doctor's office and they prescribed prednisone. She took the prednisone for about 4 days and then discontinued it without any change in her symptoms. She came to the [facility] for further evaluation. Exam: General: In no acute distress, well nourished Head: atraumatic, no encephalopathy Eyes: EOMI, PERRLA, sclera clear ENT: moist mucous membranes, nasal passages clear, reports sore throat Neck: no JVD, mass noted on left-sided neck/supraclavicular Cardiac: Normal S1 and S2. No murmur, gallops or friction rubs, peripheral pulses intact. Respiratory: Lungs clear to auscultation, no adventitious lung sounds, currently on room air Gastrointestinal: soft, non-distended, non-tender, normoactive bowel sounds. : voiding without difficulty. Extremities: moves all extremities well, no edema Skin: clean, dry, intact. No wounds or lesions. Neuro: Alert and oriented x4, cranial nerves intact, no neuro deficits. Psych: normal mood, normal affect, interactive Plan: * US guided biopsy of cervical lymph nodes * DC heparin infusion 6 hours prior to lymph node biopsy * Check TSH, T3, T4, Hgb A1C, CRP, and procalcitonin * MRSA negative Vancomycin discontinued * Continue Cefepime and Azithromycin * WBC 29.4, remains afebrile, asymptomatic other than a sore throat * Give Vitamin B12 daily for 3 days * Iron infusion x1 * Reporting sore throat, will rule out strep * Continue to monitor labs * Pain medication placed for pain control * Consider hematology/oncology consult
[2023-12-25 17:54] LABS: CRP 24.4 mg/dL (<1.0); T4 Thyroxine 9.28 ug/dL (5.53-11.0)
[2023-12-25] MEDS: HEPARIN SODIUM 5,000 UNITS/ML VIAL 3000 UNITS IV PUSH (18:01)
[2023-12-25 18:12] LABS: Procalcitonin 0.6 ng/mL
[2023-12-25] MEDS: IRON SUCROSE COMPLEX 200 MG, IRON SUCROSE COMPLEX 100 MG in SODIUM CHLORIDE 0.9% IV 250 ML 176.67 MG IVPB (18:33)
[2023-12-25] MEDS: HYDROcodone/acetaminophen (*CRX) 5-325 MG TABLET 1 TAB PO (20:28)
[2023-12-25 21:38] LABS: Glucose Point of Care 232 mg/dl (65-105)
[2023-12-25] MEDS: ACETAMINOPHEN 325 MG TABLET 650 MG PO (21:53)
[2023-12-25 22:50] LABS: Strep Group A RT-PCR NOT DETECTED (Negative)
[2023-12-26] VITALS (9 sets, daily range): BP systolic 119–150; BP diastolic 51–60; PULSE 98–115; RESP 18–20; TEMP 36.6–37.2; O2SAT 94–98
[2023-12-26] LABS: Partial Thromboplastin Time 142.1 Seconds (22.3-36.8)
[2023-12-26] MEDS: HEPARIN SOD/D5W 100 UNITS/ML 25,000 UNITS/250 ML BAG 18 UNITS IV CONT (04:27)
[2023-12-26] MEDS: CEFEPIME 2 GM/NS 50 ML 2 GM/50 ML BAG IVPB ×2 (05:25→17:42)
[2023-12-26] MEDS: LEVOTHYROXINE SODIUM 125 MCG TABLET PO (05:30)
[2023-12-26 07:19] LABS: Hematocrit 30.8 % (37.0-47.0); Mean Corpuscular HGB Conc 29.2 g/dl (32-36); Mean Corpuscular Hemoglobin 24.1 pg (26-34); Mean Corpuscular Volume 82.4 fl (80-100); Mean Platelet Volume 8.2 fl (7.4-10.4); Platelet Count Result 384 k/mm3 (150-375); Red Blood Count 3.74 M/mm3 (4.2-5.4); White Blood Count 31.4 K/mm3 (4.5-10.0)
[2023-12-26 07:24] LABS: Partial Thromboplastin Time 31.1 Seconds (22.3-36.8)
[2023-12-26 07:29] LABS: Alanine Aminotransferase 7 U/L (6-35); Albumin Level 2.8 g/dL (3.5-5.1); Alkaline Phosphatase 132 U/L (38-126); Anion Gap 7 mmol/L (4-12); Aspartate Amino Transferase 8 U/L (14-36); Bilirubin,Total 0.6 mg/dL (0.2-1.3); Blood Urea Nitrogen 11 mg/dL (7-17); Calcium 9.2 mg/dL (8.4-10.2); Carbon Dioxide 25 mmol/L (22-30); Chloride 101 mmol/L (98-107); Estimated CRCL calculation 71 ml/min; Estimated Glomerular Filt Rate > 60; Glucose 149 mg/dL (65-110); Potassium 3.2 mmol/L (3.4-5.0); Sodium 133 mmol/L (137-145)
[2023-12-26 07:42] LABS: Hemoglobin A1C 8.2 % (<5.7)
[2023-12-26] MEDS: SIMVASTATIN 20 MG TABLET PO (08:33)
[2023-12-26] MEDS: CHOLECALCIFEROL 1,000 UNITS TABLET 2000 UNITS PO (08:33)
[2023-12-26] MEDS: HYDROcodone/acetaminophen (*CRX) 5-325 MG TABLET 1 TAB PO ×3 (08:34→17:17)
[2023-12-26] MEDS: lisinopriL 20 MG TABLET PO (08:35)
[2023-12-26] MEDS: HEPARIN SODIUM 5,000 UNITS/ML VIAL 5500 UNITS IV PUSH (08:35)
[2023-12-26] MEDS: CYANOCOBALAMIN INJ 1,000 MCG/ML VIAL 1000 MCG IM (08:36)
[2023-12-26 09:13] LABS: Lymphocytes Absolute Manual 0.62 K/mm3 (1.1-4.5); Monocytes Absolute Manual 0.62 K/mm3 (0.1-0.90); Monocytes Percent Manual 2 % (3-9); Neutrophils Percent Manual 96 % (46-73); Platelet Estimate Adequate (Adequate); Schistocytes None Seen; Total Cells Counted 100
[2023-12-26 09:14] LABS: Hypochromasia 1+
[2023-12-26 10:20] LABS: Glucose Point of Care 153 mg/dl (65-105)
[2023-12-26 11:51] LABS: Glucose Point of Care 187 mg/dl (65-105)
[2023-12-26] MEDS: SODIUM CHLORIDE 0.9% IV 1,000 ML 100 ML IV CONT ×2 (12:19→20:32)
[2023-12-26] MEDS: POTASSIUM CHLORIDE 20 MEQ PACKET (FOR LIQUID) 40 MEQ PO (12:21)
[2023-12-26 13:49] LABS: Partial Thromboplastin Time 92.5 Seconds (22.3-36.8)
[2023-12-26] MEDS: AZITHROMYCIN 250 MG TABLET 500 MG PO (14:13)
--- NOTE | 2023-12-26 16:09 | PM.IMPN ---
Progress Note: A&P Assessment and Plan (1) Multiple subsegmental pulmonary emboli without acute cor pulmonale: Code(s): I26.94 - Multiple subsegmental thrombotic pulmonary emboli without acute cor pulmonale Status: Acute Assessment and Plan: She reports about 5 months of dyspnea on exertion, more acutely short of breath in the last few weeks On a heparin drip. No right heart strain on CT or Echo Check Venous dopplers, if positive would be higher risk off anticoagulation, if negative will hold at 4:30AM for possible biopsy at 10:30am. NPO post midnight Hx of malignancy as noted Transition to oral meds when no plan for procedures (2) Sepsis: Code(s): A41.9 - Sepsis, unspecified organism Status: Acute Assessment and Plan: CT with possible necrotizing neck mass Cefepime 2G q12 (12/24- ) Start Flagyl TID (12/25- ) Likely a longer course with repeat imaging prior to discontinuing antibiotics. Has a PET scan planned that was previously scheduled on 01/11 (3) Mass in neck: Code(s): R22.1 - Localized swelling, mass and lump, neck Status: Acute Assessment and Plan: Hx uterine cancer. Follows with Dr. Gonzalez at the [facility]. 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 10/31/22 CT AP showed an indeterminate 8mm LLL pulmonary nodule, no suspiscious pelvic adenopathy. Completed radiation 12/20/22. Patient reports neck mass is new in the last few weeks, has been increasing in size, and has been more painful. More of an increase in size in the week prior to admission, with associated fevers. Patient reports no recent procedures, and no IV's were placed in her neck 12/24 CT Neck showed Heterogeneous, likely cystic and solid left lower neck mass measuring up to 6.3 cm. May represent a necrotic lymph node, other necrotic mass, or abscess. If there has been history of recent catheterization on the left, vascular injury including pseudoaneurysm could be considered, but this is thought to be much less likely 12/23 CTA Subsegmental, nonocclusive emboli in the bilateral upper lobes and right lower lobe. Low clot burden. No evidence of right heart strain. Small pericardial effusion. Multiple pulmonary nodules measuring up to 8mm, recommend follow-up low-dose noncontrast CT of the chest in 3-6 months.. PLAN --She has follow up with her oncologist scheduled on 01/[address] also scheduled at that time --US guided biopsy tomorrow morning if Venous dopplers are negative, and TTE confirms no heart strain. If positive may need to reschedule for a later date, but given possible malignancy, she would be at chronically increased risk of DVT/PE. Need to hold 6 hours before and 12-24 hours afterwards --Empiric Cefepime, Flagyl for possible abscess, if improving, likely abscess or malignancy with superimposed infection/abscess. Likely needs a minimum 3 week course of antibiotics with imaging to determine end date. --Check procalcitonin, CRP, ESR --If able to biopsy, send cytology, bacterial & fungal GS/Culture, AFB --Pain control: Tylenol, oxycodone prn. Miralax for bowel regimen (4) Type 2 diabetes mellitus with hyperglycemia, without long-term current use of insulin: Code(s): E11.65 - Type 2 diabetes mellitus with hyperglycemia Status: Acute Assessment and Plan: Home meds: Metformin 1000mg BID --Hold metformin and continue SSI (5) Postablative hypothyroidism: Code(s): E89.0 - Postprocedural hypothyroidism Status: Acute Assessment and Plan: Continue synthroid (6) Essential hypertension: Code(s): I10 - Essential (primary) hypertension Status: Acute Assessment and Plan: Home meds: Lisinopril 20mg Continue home med (7) Pericardial effusion: Code(s): I31.39 - Other pericardial effusion (noninflammatory) Status: Acute Assessment and Plan: 12/24 TTE Small pericardial effusion. Mild tricuspid regurg, small pericardial effusion, normal right atrial pressure, LVEF >70% (8) Microcytic anemia: Code(s): D50.9 - Iron deficiency anemia, unspecified Status: Acute Assessment and Plan: H&H 11/24.8 Time Spent With Patient Time: 63 minutes Subjective Date/time seen: 12/26/23 16:09 Interval history: Pain improved with current pain meds. Swelling and tendness about the same otherwise. Afebrile, intermittently tachycardic Review of Systems Review of Systems: 12 systems were reviewed with pertinent positives and negatives per HPI. Except as documented in the HPI, all other systems were reviewed and are negative. Exam Narrative: Weight 92 kg BMI 32.7 General - Awake and alert. No acute distress Eyes - PERRLA, EOM intact ENT - No thrush, No erythema Neck - few small nontender submandibular lymph nodes on the right, patient has a large area of increased tissue on the left neck with large tender palpable mass that starts at the clavicle. Mass is tender, firm, no fluctuance. No induration or increased warmth Lymph Nodes - No lymphadenopathy Cardiovascular - RRR no m/r/g, no JVD Lungs: Clear to auscultation, No wheezing, use of accessory muscles, no crackles Skin - Skin warm and dry, no wounds or rashes Abdomen - Normal bowel sounds, abdomen soft and nontender Extremities - No edema, cyanosis or clubbing Musculoskeletal - 5/5 strength, normal range of motion, no swollen or erythematous joints. Neurological ? Alert and oriented x 3, CN 2-12 grossly intact. Psych: Normal mood and affect Const: Other: Obese, no acute distress, appears stated age Objective Data Vital Signs Vital Signs: Vital Signs - 24 hr 12/25/23 21:53 12/25/23 21:54 12/25/23 22:53 Temperature 100.8 F H 100.3 F H 98.4 F Pulse Rate 132 H Respiratory Rate 20 Blood Pressure 148/60 H Pulse Oximetry 96 12/25/23 23:07 12/25/23 20:00 12/26/23 00:00 Temperature 98.4 F Pulse Rate 123 H 103 H Respiratory Rate Blood Pressure Pulse Oximetry 12/26/23 04:00 12/26/23 05:22 12/26/23 08:30 Temperature 97.8 F Pulse Rate 98 100 114 H Respiratory Rate 20 Blood Pressure 119/57 L Pulse Oximetry 95 Intake/Output Intake/Output: Intake & Output 12/23/23 12/24/23 12/25/23 12/26/23 23:59 23:59 23:59 23:59 Intake Total 4457.1 3366.0 2049.0 Output Total 200 1150 Balance 4257.1 2216.0 2049.0 Meds/Results Medications: Active Medications Generic Name Dose Route Start Last Admin Trade Name Freq PRN Reason Stop Dose Admin Acetaminophen 650 mg 12/25/23 17:41 12/25/23 21:53 Acetaminophen 325 Mg Tablet PO 650 mg Q4H PRN Administration Mild Pain (1-3) or Fever Hydrocodone Bitart/Acetaminophen 1 tab 12/25/23 17:41 12/26/23 12:18 Hydrocodone/Acetaminophen (*Crx) 5-325 Mg Tablet PO 1 tab Q4H PRN Administration Moderate Pain (4-6) Azithromycin 500 mg 12/26/23 13:15 12/26/23 14:13 Azithromycin 250 Mg Tablet PO 12/30/23 09:01 500 mg DAILY LLOYD Administration Cyanocobalamin 1,000 mcg 12/25/23 16:40 12/26/23 08:36 Cyanocobalamin Inj 1,000 Mcg/Ml Vial IM 12/27/23 17:00 1,000 mcg DAILY LLOYD Administration Dextrose 12.5 gm 12/24/23 22:10 Dextrose 50% 25 Gm/50 Ml Syringe IV PUSH PRN PRN Hypoglycemia Protocol Glucagon 1 mg 12/24/23 22:10 Glucagon For Inj 1 Mg Vial IM PRN PRN Hypoglycemia Protocol Glucose 15 gm 12/24/23 22:10 Glucose Oral Gel 15 Gm Of Glucse In 37.5 Gm Tube PO PRN PRN Hypoglycemia Protocol Heparin Sodium (Porcine) 5,500 units 12/24/23 19:47 12/26/23 08:35 Heparin Sodium 5,000 Units/Ml Vial IV PUSH 5,500 units PRN PRN Administration aPTT less than 55 seconds Heparin Sodium (Porcine) 3,000 units 12/24/23 19:47 12/25/23 18:01 Heparin Sodium 5,000 Units/Ml Vial IV PUSH 3,000 units PRN PRN Administration aPTT 55 - 70 seconds Hydromorphone HCl 0.5 mg 12/25/23 00:33 12/25/23 08:41 Hydromorphone Hcl Inj (*Crx) 1 Mg/Ml Syr IV PUSH 0.5 mg Q3H PRN Administration Breakthrough Pain Hydroxyzine HCl 25 mg 12/25/23 00:38 Hydroxyzine Hcl 25 Mg Tablet PO Q6H PRN nerves/itching Heparin Sodium/Dextrose 25,000 units in 250 mls @ 21 mls/hr 12/24/23 19:50 12/26/23 13:45 Heparin Sodium/D5w 100 Units/Ml IV CONT 2,100 units/hr .[id number] LLOYD 21 mls/hr Titration Protocol 2,100 UNITS/HR Sodium Chloride 1,000 mls @ 100 mls/hr 12/24/23 22:05 12/26/23 12:19 Normal Saline Iv IV CONT 100 mls/hr .Q10H L[facility]YD Administration Dextrose 1,000 mls @ 100 mls/hr 12/24/23 22:10 Dextrose 5% 1,000 Ml IVPB PRN PRN Hypoglycemia Protocol Cefepime HCl 2 gm in 50 mls @ 100 mls/hr 12/25/23 06:00 12/26/23 05:55 Maxipime 2 Gm/Ns 50 Ml IVPB Infused Q12H L[facility]D Infusion Insulin Aspart 3 - 6 units 12/25/23 08:00 12/26/23 12:54 Insulin Aspart (*Bkc) 100 Units/Ml SUB-Q Not Given TIDWM LLOYD Protocol Insulin Aspart 1 - 3 units 12/25/23 21:00 12/25/23 22:43 Insulin Aspart (*Bkc) 100 Units/Ml SUB-Q 1 units HS L[facility]D Administration Protocol Levothyroxine Sodium 125 mcg 12/26/23 06:30 12/26/23 05:30 Levothyroxine Sodium 125 Mcg Tablet PO 125 mcg DAILY@0630 L[facility]D Administration Lisinopril 20 mg 12/25/23 09:00 12/26/23 08:35 Lisinopril 20 Mg Tablet PO 20 mg DAILY L[facility]D Administration Metformin HCl 1,000 mg 12/25/23 08:00 12/25/23 08:36 Metformin Hcl 500 Mg Tablet PO 1,000 mg BIDWM L[facility]D Administration Metronidazole 500 mg 12/26/23 16:00 Metronidazole 500 Mg Tablet PO Q8HR LLO[facility]D Morphine Sulfate 2 mg 12/25/23 17:41 Morphine Sulfate (*Crx) 2 Mg/Ml Inj IV PUSH Q4H PRN Pain Rated 7-10 Ondansetron HCl 4 mg 12/25/23 17:41 Ondansetron Inj 4 Mg/2 Ml Vial IV PUSH Q6H PRN Nausea And Vomiting Perflutren Lipid Microsphere 0 ml 12/25/23 09:16 Perflutren Lipid Microspheres 1.5 Ml Vial Diluted To 10 Ml Total Volume IV PUSH 12/28/23 09:18 ONCE PRN adequate visualization Protocol Simvastatin 20 mg 12/25/23 09:00 12/26/23 08:33 Simvastatin 20 Mg Tablet PO 20 mg DAILY L[facility]YD Administration Vitamin D 2,000 units 12/25/23 09:00 12/26/23 08:33 Cholecalciferol 1,000 Units Tablet PO 2,000 units DAILY LLOYD Administration Radiology Results: ITS Impressions Chest CTA 12/24/23 19:22 IMPRESSION: Subsegmental, nonocclusive emboli in the bilateral upper lobes and right lower lobe. Low clot burden. No evidence of right heart strain. Small pericardial effusion. Multiple pulmonary nodules measuring up to 8mm, recommend follow-up low-dose noncontrast CT of the chest in 3-6 months.. Soft Tissue Neck CT 12/24/23 19:34 IMPRESSION: Heterogeneous, likely cystic and solid left lower neck mass measuring up to 6.3 cm. May represent a necrotic lymph node, other necrotic mass, or abscess. If there has been history of recent catheterization on the left, vascular injury including pseudoaneurysm could be considered, but this is thought to be much less likely. Labs Labs: Laboratory Results - last 24 hr 12/25/23 12/25/23 12/25/23 16:39 17:18 20:43 WBC RBC Hgb Hct MCV MCH MCHC RDW Plt Count MPV Immature Gran % (Auto) Neut % (Auto) Lymph % (Auto) [place] % (Auto) Eos % (Auto) Baso % (Auto) Lymph # (Auto) [place] # (Auto) Eos # (Auto) Baso # (Auto) Abs Immat Gran (auto) Absolute Neuts (auto) Absolute Nucleated RBC Total Counted Neutrophils % (Manual) Lymphocytes % (Manual) Monocytes % (Manual) Nucleated RBC % Abs Lymphs (Manual) Abs Monocytes (Manual) Platelet Estimate Hypochromasia Schistocytes APTT 67.5 H Sodium Potassium Chloride Carbon Dioxide Anion Gap BUN Creatinine Estim Creat Clear Calc Estimated GFR Glucose POC Capillary Glucose 181 H 232 H Hemoglobin A1c Calcium Total Bilirubin AST ALT Alkaline Phosphatase C-Reactive Protein 24.4 H Total Protein Albumin Procalcitonin 0.6 TSH 2.940 Thyroxine (T4) 9.28 Group A Strep (PCR) 12/25/23 12/25/23 12/26/23 22:15 23:43 07:08 WBC 31.4 H RBC 3.74 L Hgb 9.0 L Hct 30.8 L MCV 82.4 MCH 24.1 L MCHC 29.2 L RDW 15.0 H Plt Count 384 H MPV 8.2 Immature Gran % (Auto) Not Reportable Neut % (Auto) Not Reportable Lymph % (Auto) Not Reportable [place] % (Auto) Not Reportable Eos % (Auto) Not Reportable Baso % (Auto) Not Reportable Lymph # (Auto) Not Reportable [place] # (Auto) Not Reportable Eos # (Auto) Not Reportable Baso # (Auto) Not Reportable Abs Immat Gran (auto) Not Reportable Absolute Neuts (auto) Not Reportable Absolute Nucleated RBC Not Reportable Total Counted 100 Neutrophils % (Manual) 96 H Lymphocytes % (Manual) 2.0 L Monocytes % (Manual) 2 L Nucleated RBC % Not Reportable Abs Lymphs (Manual) 0.62 L Abs Monocytes (Manual) 0.62 Platelet Estimate Adequate Hypochromasia 1+ Schistocytes None seen APTT 142.1 H 31.1 Sodium 133 L Potassium 3.2 L Chloride 101 Carbon Dioxide 25 Anion Gap 7 BUN 11 D Creatinine 0.80 Estim Creat Clear Calc 71 Estimated GFR > 60 Glucose 149 H POC Capillary Glucose Hemoglobin A1c 8.2 H Calcium 9.2 Total Bilirubin 0.6 AST 8 L ALT 7 Alkaline Phosphatase 132 H C-Reactive Protein Total Protein 6.0 L Albumin 2.8 L Procalcitonin TSH Thyroxine (T4) Group A Strep (PCR) Not detected 12/26/23 12/26/23 12/26/23 07:55 11:47 13:23 WBC RBC Hgb Hct MCV MCH MCHC RDW Plt Count MPV Immature Gran % (Auto) Neut % (Auto) Lymph % (Auto) [place] % (Auto) Eos % (Auto) Baso % (Auto) Lymph # (Auto) [place] # (Auto) Eos # (Auto) Baso # (Auto) Abs Immat Gran (auto) Absolute Neuts (auto) Absolute Nucleated RBC Total Counted Neutrophils % (Manual) Lymphocytes % (Manual) Monocytes % (Manual) Nucleated RBC % Abs Lymphs (Manual) Abs Monocytes (Manual) Platelet Estimate Hypochromasia Schistocytes APTT 92.5 H Sodium Potassium Chloride Carbon Dioxide Anion Gap BUN Creatinine Estim Creat Clear Calc Estimated GFR Glucose POC Capillary Glucose 153 H 187 H Hemoglobin A1c Calcium Total Bilirubin AST ALT Alkaline Phosphatase C-Reactive Protein Total Protein Albumin Procalcitonin TSH Thyroxine (T4) Group A Strep (PCR) Quality VTE Prophylaxis VTE prophylaxis: pharmacologic ordered (Heparin GGT per protocol.) Hospitalist MIPS Advance Care Plan I have confirmed that the patient's Advanced Care Plan is present, code status is documented, or surrogate decision maker is listed in patient medical record.: Yes Medication Reconciliation I have utilized all available resources to obtain, update and review the patients current medications (includes all prescriptions, OTC, herbals, cannabis, and nutritional supplements).: Yes
[2023-12-26 16:55] LABS: Glucose Point of Care 156 mg/dl (65-105)
[2023-12-26] MEDS: metroNIDAZOLE 500 MG TABLET PO ×2 (17:17→20:31)
[2023-12-26 19:26] LABS: Glucose Point of Care 194 mg/dl (65-105)
[2023-12-26 20:07] LABS: Partial Thromboplastin Time 96.7 Seconds (22.3-36.8)
[2023-12-26] MEDS: MORPHINE SULFATE (*CRX) 2 MG/ML INJ IV PUSH (20:31)
[2023-12-27] VITALS (8 sets, daily range): BP systolic 117–152; BP diastolic 57–65; PULSE 103–129; RESP 14–18; TEMP 36.4–37.6; O2SAT 92–98
[2023-12-27] MEDS: MORPHINE SULFATE (*CRX) 2 MG/ML INJ IV PUSH ×2 (02:44→12:46)
[2023-12-27] MEDS: CEFEPIME 2 GM/NS 50 ML 2 GM/50 ML BAG IVPB ×2 (05:43→17:06)
[2023-12-27] MEDS: metroNIDAZOLE 500 MG TABLET PO ×3 (05:46→21:20)
[2023-12-27] MEDS: LEVOTHYROXINE SODIUM 125 MCG TABLET PO (05:46)
[2023-12-27 08:01] LABS: Glucose Point of Care 194 mg/dl (65-105)
[2023-12-27 08:27] LABS: Basophils Absolute Auto 0.1 K/mm3 (0.0-0.1); Basophils Percent Auto 0.4 % (0.2-1.2); Eosinophils Absolute Auto 0.2 K/mm3 (0-0.3); Eosinophils Percent Auto 0.5 % (0-4.4); Hematocrit 27.8 % (37.0-47.0); Hemoglobin 8.4 g/dL (12.0-15.0); Immature Granulocyte Percent A 3.5 % (0-0.5); Lymphocytes Absolute Auto 0.99 K/mm3 (0.9-3.2); Lymphocytes Percent Auto 2.9 % (18.3-44.2); Mean Corpuscular HGB Conc 30.2 g/dl (32-36); Mean Corpuscular Hemoglobin 24.6 pg (26-34); Mean Corpuscular Volume 81.3 fl (80-100); Mean Platelet Volume 8.2 fl (7.4-10.4); Monocytes Absolute Auto 1.2 K/mm3 (0.1-0.6); Monocytes Percent Auto 3.5 % (2.6-8.5); Neutrophils Absolute Auto 30.6 K/mm3 (1.3-6.7); Neutrophils Percent Auto 89.2 % (45.5-73.1); Platelet Count Result 388 k/mm3 (150-375); Red Blood Count 3.42 M/mm3 (4.2-5.4); Red Cell Distribution Width 15.2 % (11.5-14.5); White Blood Count 34.3 K/mm3 (4.5-10.0)
[2023-12-27 08:37] LABS: INR 1.2; Prothrombin Time 15.8 Seconds (11.1-14.7)
[2023-12-27] MEDS: SODIUM CHLORIDE 0.9% IV 1,000 ML 100 ML IV CONT ×2 (09:11→21:21)
[2023-12-27 09:19] LABS: Alanine Aminotransferase 6 U/L (6-35); Albumin Level 2.7 g/dL (3.5-5.1); Alkaline Phosphatase 132 U/L (38-126); Anion Gap 8 mmol/L (4-12); Aspartate Amino Transferase 12 U/L (14-36); Bilirubin,Total 0.7 mg/dL (0.2-1.3); Blood Urea Nitrogen 8 mg/dL (7-17); CRP 35.4 mg/dL (<1.0); Carbon Dioxide 23 mmol/L (22-30); Chloride 100 mmol/L (98-107); Estimated CRCL calculation 92 ml/min; Estimated Glomerular Filt Rate > 60; Glucose 176 mg/dL (65-110); Potassium 3.4 mmol/L (3.4-5.0); Procalcitonin 0.8 ng/mL; Sodium 131 mmol/L (137-145)
[2023-12-27 09:30] LABS: Hypersegmented Neutrophils Present; Platelet Estimate Adequate (Adequate)
[2023-12-27 09:31] LABS: Anisocytosis 1+; Schistocytes None Seen
[2023-12-27 09:56] LABS: Erythrocyte Sedimentation Rate 110 mm/hr (0-20)
[2023-12-27 10:36] LABS: INR 1.3; Partial Thromboplastin Time 29.6 Seconds (22.3-36.8); Prothrombin Time 16.4 Seconds (11.1-14.7)
[2023-12-27] MEDS: HYDROcodone/acetaminophen (*CRX) 5-325 MG TABLET 1 TAB PO ×2 (11:30→18:04)
--- NOTE | 2023-12-27 11:42 | WPDCN ---
Assessment and Plan Assessment and plan (1) Mass in neck: Code(s): R22.1 - Localized swelling, mass and lump, neck Status: Acute Assessment and Plan: Patient has a large fixed 6cm neck mass extending from the carotid bifurcation to the left clavicle deep in the left neck impinging upon the left internal jugular vein almost complete occlusion. She is admitted for pulmonary embolus and is going to be anticoagulated. She is not having problems breathing at this time. She had an image guided core needle biopsy of the mass and tolerated that well. Await the pathology results. If it turns out to be lymphoma then oncology should be consulted for recommendations for chemotherapy. If it is any other type of malignancy then surgical evaluation by ENT to or Surgical Oncology as an outpatient should be arranged. Since she has gotten most of her care in the past at [facility], it would make sense for her to see a [facility] surgical oncologist or ENT specialist. If she needs a surgeon to further evaluate this mass then it is beyond the specialist capabilities here at [facility]. HPI Data of Consult Date/Time: 12/27/23 11:42 Requesting Physician: Belen Leal APRN Primary Care Provider: Renato BurgessMD Consult Narrative Reason for consult: Left neck mass Narrative: Mariposa Sheikh is a 63 year old female who was admitted to the hospital with complaints of some fatigue associated with some feeling of fullness in her left neck region. He has also noted having increased blood sugars lately although she is a diabetic. She saw her primary care physician and the left neck mass which had been increasing in size the past 3 to 4 weeks was easily palpable. She was started on a prednisone prescription in some antibiotics. After admission to the hospital she was noted to have pulmonary emboli and was admitted to for that reason. See being anticoagulated and a CT scan of the neck shows a 4.9 x5.1x6.3cm partially cystic and partially solid mass that extends from just below the carotid bifurcation down to the left clavicle. There is severe compression narrowing of the left internal jugular vein. Patient is not having problems breathing right now. There is no shift of the trachea. She states she has been having some night sweats recently. White blood cell count is around 30,000 today. She just had a CT-guided core needle biopsy of the left neck mass today. Pathology results are pending. 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. Review of Systems Review of Systems: All systems reviewed & are unremarkable except as noted in HPI and below PMFSH Past Medical History Medical History Anxiety Arthritis Back pain Essential hypertension GERD (gastroesophageal reflux disease) Graves disease Hyperlipemia Hypertension Incidental pulmonary nodule, greater than or equal to 8mm CT scan 06/2023 demonstrated stable 8 mm indeterminate pulmonary nodule left lower lobe according to reports from [facility]. 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 She is a former smoker but quit smoking in 1988. She denies any significant alcohol or illicit substance use. She has a set of fraternal twins daughter and a son that are 33 years old. Code status: Full code Surrogate decision maker: Denzel () Smoking packs per day: 0.75 Smoking cigarettes per day: 15.0 Years smoked: 12 Smoking pack-years: 9.00 Smoking status: Former smoker Tobacco type: cigarettes Smoking end date: 07/30/88 Alcohol intake: never Substance use: never Substance use type: does not use Do You Feel Safe in your Home?: Yes Lack of Transportation: No Lack of Food: Never True Current Housing: I Have Housing Concerned About Future Housing: No Difficulty Paying Gas/Electric Bills: No Difficulty Paying for Meds: No Currently Unemployed: No Education: High School Diploma/GED Difficulty w/ Childcare or Family Care: No Living arrangements: with family 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 Gender identity (if verbalized by the patient): Female Sexual Orientation (if Verbalized by the Patient): Straight or Heterosexual Spiritual care concerns: No Meds Home Medications and Allergies Home Medications Medication Instructions Recorded Confirmed Type levothyroxine 112 mcg capsule 112 mcg PO DAILY 10/27/20 12/24/23 History simvastatin 20 mg tablet 20 mg PO DAILY 10/27/20 12/24/23 History hydroxyzine HCl 25 mg tablet 25 mg PO PRN PRN nerves/itching 08/09/22 12/24/23 History metformin 1,000 mg tablet 1,000 mg PO BID 08/09/22 12/24/23 History naproxen 500 mg tablet 500 mg PO PRN PRN Pain 08/09/22 12/24/23 History cholecalciferol (vitamin D3) 50 50 mcg PO DAILY 12/24/23 12/24/23 History mcg (2,000 unit) capsule (Vitamin D3) lisinopril 20 mg tablet 20 mg PO DAILY 12/24/23 12/24/23 History Allergies Allergy/AdvReac Type Severity Reaction Status Date / Time No Known Allergies Allergy Verified 12/24/23 22:32 Vital Signs Vital Signs - 24 hr 12/26/23 14:00 12/26/23 12:00 12/26/23 16:00 Temperature 37.2 C Pulse Rate 112 H 115 H 112 H Respiratory Rate 18 Blood Pressure 132/51 L Pulse Oximetry 98 Oxygen Delivery 12/26/23 20:08 12/26/23 20:00 12/26/23 20:00 Temperature 36.8 C Pulse Rate 114 H 115 H Respiratory Rate 18 Blood Pressure 150/60 H Pulse Oximetry 94 Oxygen Delivery Room Air 12/27/23 00:00 12/27/23 00:00 12/27/23 04:00 Temperature 36.9 C Pulse Rate 129 H 126 H 118 H Respiratory Rate 16 Blood Pressure 152/65 H Pulse Oximetry 98 Oxygen Delivery 12/27/23 04:00 12/27/23 08:00 Temperature 37.4 C 37.5 C Pulse Rate 106 H 116 H Respiratory Rate 16 14 Blood Pressure 149/60 H 126/60 Pulse Oximetry 92 94 Oxygen Delivery Results Labs 12/27/23 08:15 12/27/23 08:15 Labs: Short CBC 12/27/23 Range/Units 08:15 WBC 34.3 H (4.5-10.0) K/mm3 Hgb 8.4 L (12.0-15.0) g/dL Hct 27.8 L (37.0-47.0) % Plt Count 388 H (150-375) k/mm3 BMP 12/27/23 08:15 Sodium 131 L Potassium 3.4 Chloride 100 Carbon Dioxide 23 BUN 8 Creatinine 0.60 L Glucose 176 H Calcium 9.0 Liver Function 12/27/23 Range/Units 08:15 Total Bilirubin 0.7 (0.2-1.3) mg/dL AST 12 L (14-36) U/L ALT 6 (6-35) U/L Alkaline Phosphatase 132 H (38-126) U/L Albumin 2.7 L (3.5-5.1) g/dL Imaging Radiologist's impression: EXAMINATION: CT soft tissue neck w con DATE: 12/24/2023 19:19 INDICATION: Tender swelling on the left side of neck TECHNIQUE: Computed tomography (CT) of the neck was performed with 75 mL Omnipaque-350 intravenous contrast. The dose-length product was 464.27 mGy-cm. COMPARISON: None FINDINGS: Heterogeneously enhancing 4.9 x 5.1 x 6.3 cm mass in the left lower neck, beginning inferior to the left carotid bifurcation and extending inferiorly posterior to the left clavicle, which displaces and severely narrows the adjacent left inferior jugular vein. The thyroid gland is unremarkable. The submandibular and parotid glands are symmetric. There is no cervical lymphadenopathy. There are no masses identified. The superior mediastinum is unremarkable. The airway is unremarkable. Parapharyngeal and pre-glottic fat planes are preserved. Normal enhancing neck arteries. The orbits are unremarkable. Visualized sinuses and mastoid air cells are well aerated. Partially visualized lung parenchyma is clear. There is cervical spondylosis. Only three teeth remain, periapical lucency at the single remaining left maxillary premolar, likely indicative of periodontal disease. IMPRESSION: Heterogeneous, likely cystic and solid left lower neck mass measuring up to 6.3 cm. May represent a necrotic lymph node, other necrotic mass, or abscess. If there has been history of recent catheterization on the left, vascular injury including pseudoaneurysm could be considered, but this is thought to be much less likely. Reviewed, dictated and finalized at location [facility]. Dictated By: Andrea De Los Santos MD 12/24/231933 Signed By: <Electronically signed by Andrea De Los Santos MD in [place]> 12/24/231941
[2023-12-27] MEDS: SIMVASTATIN 20 MG TABLET PO (12:41)
[2023-12-27] MEDS: CHOLECALCIFEROL 1,000 UNITS TABLET 2000 UNITS PO (12:41)
[2023-12-27] MEDS: CYANOCOBALAMIN INJ 1,000 MCG/ML VIAL 1000 MCG IM (12:41)
[2023-12-27] MEDS: lisinopriL 20 MG TABLET PO (12:42)
[2023-12-27] MEDS: AZITHROMYCIN 250 MG TABLET 500 MG PO (12:42)
[2023-12-27 15:22] LABS: T3 Free 1.7 pg/mL (2.3-4.2)
[2023-12-27 16:10] LABS: Glucose Point of Care 148 mg/dl (65-105)
[2023-12-27 17:21] LABS: Hematocrit 26.2 % (37.0-47.0); Mean Corpuscular HGB Conc 30.5 g/dl (32-36); Mean Corpuscular Hemoglobin 24.4 pg (26-34); Mean Corpuscular Volume 79.9 fl (80-100); Mean Platelet Volume 8.1 fl (7.4-10.4); Platelet Count Result 372 k/mm3 (150-375); Red Blood Count 3.28 M/mm3 (4.2-5.4); Red Cell Distribution Width 14.9 % (11.5-14.5); White Blood Count 31.9 K/mm3 (4.5-10.0)
[2023-12-27 17:29] LABS: INR 1.3; Prothrombin Time 16.4 Seconds (11.1-14.7)
[2023-12-27] MEDS: HEPARIN SODIUM 5,000 UNITS/ML VIAL 6000 UNITS IV PUSH (18:00)
[2023-12-27] MEDS: HEPARIN SOD/D5W 100 UNITS/ML 25,000 UNITS/250 ML BAG 13 UNITS IV CONT (18:01)
[2023-12-27 18:20] LABS: Band Neutrophils Percent 1 % (0-6); Lymphocytes Absolute Manual 0.31 K/mm3 (1.1-4.5); Neutrophils Absolute Manual 31.58 K/mm3 (1.7-7.2); Neutrophils Percent Manual 98 % (46-73); Platelet Estimate Adequate (Adequate); Schistocytes None Seen; Total Cells Counted 100
[2023-12-27 18:21] LABS: Hypochromasia 1+
--- NOTE | 2023-12-27 18:55 | P.PNIM_ITS ---
Progress Note: A&P Assessment and Plan (1) Multiple subsegmental pulmonary emboli without acute cor pulmonale: Code(s): I26.94 - Multiple subsegmental thrombotic pulmonary emboli without acute cor pulmonale Status: Acute Assessment and Plan: Reports about 5 months of dyspnea on exertion, more acutely short of breath in the last few weeks Continue heparin drip. No right heart strain on CT or Echo Hx of malignancy as noted. Transition to oral meds when no plan for more procedures. (2) Sepsis: Code(s): A41.9 - Sepsis, unspecified organism Status: Acute Assessment and Plan: CT with possible necrotizing neck mass Currently on Cefepime 2G q12 (12/24-) and Azithromycin. - Likely a longer course with repeat imaging prior to discontinuing antibiotics. - Has a PET scan planned that was previously scheduled on 01/11 - Blood-cultures NGTD. - Continue to follow cultures and Biopsy results. (3) Mass in neck: Code(s): R22.1 - Localized swelling, mass and lump, neck Status: Acute Assessment and Plan: Hx uterine cancer. Follows with Dr. Gonzalez at the [facility]. Had post-menopausal bleeding 03/2022, subsequently had a D&C that showed endometrial adenocarcinoma. 10/31/22 CT AP showed an indeterminate 8mm LLL pulmonary nodule, no suspiscious pelvic adenopathy. Completed radiation . Patient reports neck mass is new in the last few weeks, has been increasing in size, and has been more painful. More of an increase in size in the week prior to admission, with associated fevers. Patient reports no recent procedures, and no IV's were placed in her neck 12/24 CT Neck showed Heterogeneous, likely cystic and solid left lower neck mass measuring up to 6.3 cm. May represent a necrotic lymph node, other necrotic mass, or abscess. If there has been history of recent catheterization on the left, vascular injury including pseudoaneurysm could be considered, but this is thought to be much less likely 12/23 CTA Subsegmental, nonocclusive emboli in the bilateral upper lobes and right lower lobe. Low clot burden. No evidence of right heart strain. Small pericardial effusion. Multiple pulmonary nodules measuring up to 8mm, recommend follow-up low-dose noncontrast CT of the chest in 3-6 months.. PLAN --She has follow up with her oncologist scheduled on 01/[address] also scheduled at that time. --US guided biopsy done today. -- Venous dopplers negative. -- TTE confirms no heart strain. --given possible malignancy, pt at chronically increased risk of DVT/PE. --Empiric Cefepime, Flagyl for possible abscess, if improving, likely abscess or malignancy with superimposed infection/abscess. -------imaging to determine end date. --Procalcitonin wnl. -- WBC, CRP, ESR all remain elevated. --Biopsy, sent for cytology, bacterial & fungal GS/Culture, AFB --Pain control: Tylenol, oxycodone prn. Miralax for bowel regimen (4) Type 2 diabetes mellitus with hyperglycemia, without long-term current use of insulin: Code(s): E11.65 - Type 2 diabetes mellitus with hyperglycemia Status: Acute Assessment and Plan: Home meds: Metformin 1000mg BID --Hold metformin and continue SSI (5) Postablative hypothyroidism: Code(s): E89.0 - Postprocedural hypothyroidism Status: Acute Assessment and Plan: Continue synthroid (6) Essential hypertension: Code(s): I10 - Essential (primary) hypertension Status: Acute Assessment and Plan: Home meds: Lisinopril 20mg Continue home med (7) Pericardial effusion: Code(s): I31.39 - Other pericardial effusion (noninflammatory) Status: Acute Assessment and Plan: 12/24 TTE Small pericardial effusion. Mild tricuspid regurg, small pericardial effusion, normal right atrial pressure, LVEF >70% (8) Microcytic anemia: Code(s): D50.9 - Iron deficiency anemia, unspecified Status: Acute Assessment and Plan: - H&H fairly stable. - Continue to monitor closely. Time Spent With Patient Time with patient: 25 - 35 minutes Subjective Date/time seen: 12/27/23 16:30 Patient calm on bedrest post neck biopsy and denies any acute distress. Interval history: Patient calm on bedrest and in no acute distress. Review of Systems Review of Systems: 12 systems were reviewed with pertinent positives and negatives per HPI. Except as documented in the HPI, all other systems were reviewed and are negative. Exam Narrative: Weight 92 kg BMI 32.7 General - Awake and alert. No acute distress Eyes - PERRLA, EOM intact ENT - No thrush, No erythema Neck - few small nontender submandibular lymph nodes on the right, moderate swelling left neck region tender palpation, Mass tender, firm, no fluctuance. No induration or increased warmth. Cardiovascular - RRR no murmurs, no JVD Lungs: Clear to auscultation, No wheezing, use of accessory muscles, no crackles Skin - Skin warm and dry, Biopsy site with dry band-aid. Abdomen - Normal bowel sounds, abdomen soft and nontender Extremities - No edema, cyanosis or clubbing Musculoskeletal - 5/5 strength, normal range of motion, no swollen or erythematous joints. Neurological ? Alert and oriented x 3, CN II-XII grossly intact. Psych: Normal mood and affect HENMT: Other: Head is normocephalic, atraumatic, mucous membranes are tacky, no oral pharyngeal erythema, multiple missing teeth but remainder of dentition appears fair, moderately large area swelling on the left neck. No induration or increased warmth Eyes: Other: Pupils are equal and reactive, no scleral icterus, positive conjunctival pallor Neck: Other: Please see exam under HEENT Resp: Other: Clear to auscultation bilaterally, no increased work of breathing Cardio: Other: Sinus tachycardia, 2+ bilateral radial pedal pulses GI: Other: Soft, nontender, nondistended, positive bowel sounds Skin: Other: Warm, dry and intact. Neuro: Other: Alert orient x4, speech is clear, no facial asymmetry, no localizing neurologic deficits of fine or gross motor skills Extrem: Other: No cyanosis or edema of lower extremities, no calf pain or tenderness Psych: Other: Extremely pleasant, cooperative, appropriate mood and affect, judgment and insight intact Objective Data Vital Signs Vital Signs: Vital Signs - 24 hr 12/26/23 20:08 12/26/23 20:00 12/26/23 20:00 Temperature 98.3 F Pulse Rate 114 H 115 H Respiratory Rate 18 Blood Pressure 150/60 H Pulse Oximetry 94 Oxygen Delivery Room Air 12/27/23 00:00 12/27/23 00:00 12/27/23 04:00 Temperature 98.5 F Pulse Rate 129 H 126 H 118 H Respiratory Rate 16 Blood Pressure 152/65 H Pulse Oximetry 98 Oxygen Delivery 12/27/23 04:00 12/27/23 08:00 12/27/23 12:00 Temperature 99.3 F 99.5 F 99.6 F Pulse Rate 106 H 116 H 107 H Respiratory Rate 16 14 16 Blood Pressure 149/60 H 126/60 117/63 Pulse Oximetry 92 94 95 Oxygen Delivery 12/27/23 09:55 12/27/23 16:00 12/27/23 16:00 Temperature 97.5 F L Pulse Rate 116 H 103 H 118 H Respiratory Rate 18 Blood Pressure 136/57 L Pulse Oximetry 94 Oxygen Delivery 12/27/23 12:00 Temperature Pulse Rate 108 H Respiratory Rate Blood Pressure Pulse Oximetry Oxygen Delivery Intake/Output Intake/Output: Intake & Output 12/24/23 12/25/23 12/26/23 12/27/23 23:59 23:59 23:59 23:59 Intake Total 4457.1 3366.0 3488.2 2600.0 Output Total 200 1150 1290 Balance 4257.1 2216.0 3488.2 1310.0 Meds/Results Medications: Active Medications Generic Name Dose Route Start Last Admin Trade Name Freq PRN Reason Stop Dose Admin Acetaminophen 650 mg 12/25/23 17:41 12/25/23 21:53 Acetaminophen 325 Mg Tablet PO 650 mg Q4H PRN Administration Mild Pain (1-3) or Fever Hydrocodone Bitart/Acetaminophen 1 tab 12/25/23 17:41 12/27/23 18:04 Hydrocodone/Acetaminophen (*Crx) 5-325 Mg Tablet PO 1 tab Q4H PRN Administration Moderate Pain (4-6) Azithromycin 500 mg 12/26/23 13:15 12/27/23 12:42 Azithromycin 250 Mg Tablet PO 12/30/23 09:01 500 mg DAILY LLOYD Administration Dextrose 12.5 gm 12/24/23 22:10 Dextrose 50% 25 Gm/50 Ml Syringe IV PUSH PRN PRN Hypoglycemia Protocol Glucagon 1 mg 12/24/23 22:10 Glucagon For Inj 1 Mg Vial IM PRN PRN Hypoglycemia Protocol Glucose 15 gm 12/24/23 22:10 Glucose Oral Gel 15 Gm Of Glucse In 37.5 Gm Tube PO PRN PRN Hypoglycemia Protocol Heparin Sodium (Porcine) 6,000 units 12/27/23 16:30 12/27/23 18:00 Heparin Sodium 5,000 Units/Ml Vial IV PUSH 6,000 units PRN PRN Administration aPTT less than 55 seconds Heparin Sodium (Porcine) 3,000 units 12/27/23 16:30 Heparin Sodium 5,000 Units/Ml Vial IV PUSH PRN PRN aPTT 55 - 70 seconds Hydromorphone HCl 0.5 mg 12/25/23 00:33 12/25/23 08:41 Hydromorphone Hcl Inj (*Crx) 1 Mg/Ml Syr IV PUSH 0.5 mg Q3H PRN Administration Breakthrough Pain Hydroxyzine HCl 25 mg 12/25/23 00:38 Hydroxyzine Hcl 25 Mg Tablet PO Q6H PRN nerves/itching Sodium Chloride 1,000 mls @ 100 mls/hr 12/24/23 22:05 12/27/23 09:11 Normal Saline Iv IV CONT 100 mls/hr .Q10H LLOYD Administration Dextrose 1,000 mls @ 100 mls/hr 12/24/23 22:10 Dextrose 5% 1,000 Ml IVPB PRN PRN Hypoglycemia Protocol Cefepime HCl 2 gm in 50 mls @ 100 mls/hr 12/25/23 06:00 12/27/23 17:36 Maxipime 2 Gm/Ns 50 Ml IVPB Infused Q12H LLOYD Infusion Heparin Sodium/Dextrose 25,000 units in 250 mls @ 13 mls/hr 12/27/23 16:30 12/27/23 18:01 Heparin Sodium/D5w 100 Units/Ml IV CONT 1,300 units/hr .[id number] LLOYD 13 mls/hr Administration Protocol 1,300 UNITS/HR Insulin Aspart 3 - 6 units 12/25/23 08:00 12/27/23 17:34 Insulin Aspart (*Bkc) 100 Units/Ml SUB-Q Not Given TIDWM COUNTS INCLUDE 234 BEDS AT THE [facility] Protocol Insulin Aspart 1 - 3 units 12/25/23 21:00 12/26/23 19:30 Insulin Aspart (*Bkc) 100 Units/Ml SUB-Q Not Given HS COUNTS INCLUDE 234 BEDS AT THE [facility] Protocol Levothyroxine Sodium 125 mcg 12/26/23 06:30 12/27/23 05:46 Levothyroxine Sodium 125 Mcg Tablet PO 125 mcg DAILY@0630 LLOYD Administration Lisinopril 20 mg 12/25/23 09:00 12/27/23 12:42 Lisinopril 20 Mg Tablet PO 20 mg DAILY LLOYD Administration Metformin HCl 1,000 mg 12/25/23 08:00 12/25/23 08:36 Metformin Hcl 500 Mg Tablet PO 1,000 mg BIDWM LLOYD Administration Metronidazole 500 mg 12/26/23 16:00 12/27/23 12:41 Metronidazole 500 Mg Tablet PO 500 mg Q8HR LLOYD Administration Morphine Sulfate 2 mg 12/25/23 17:41 12/27/23 12:46 Morphine Sulfate (*Crx) 2 Mg/Ml Inj IV PUSH 2 mg Q4H PRN Administration Pain Rated 7-10 Ondansetron HCl 4 mg 12/25/23 17:41 Ondansetron Inj 4 Mg/2 Ml Vial IV PUSH Q6H PRN Nausea And Vomiting Perflutren Lipid Microsphere 0 ml 12/25/23 09:16 Perflutren Lipid Microspheres 1.5 Ml Vial Diluted To 10 Ml Total Volume IV PUSH 12/28/23 09:18 ONCE PRN adequate visualization Protocol Perflutren Lipid Microsphere 0 ml 12/26/23 16:13 Perflutren Lipid Microspheres 1.5 Ml Vial Diluted To 10 Ml Total Volume IV PUSH 12/29/23 16:13 ONCE PRN adequate visualization Protocol Simvastatin 20 mg 12/25/23 09:00 12/27/23 12:41 Simvastatin 20 Mg Tablet PO 20 mg DAILY LLOYD Administration Vitamin D 2,000 units 12/25/23 09:00 12/27/23 12:41 Cholecalciferol 1,000 Units Tablet PO 2,000 units DAILY LLOYD Administration Radiology Results: ITS Impressions Chest CTA 12/24/23 19:22 IMPRESSION: Subsegmental, nonocclusive emboli in the bilateral upper lobes and right lower lobe. Low clot burden. No evidence of right heart strain. Small pericardial effusion. Multiple pulmonary nodules measuring up to 8mm, recommend follow-up low-dose noncontrast CT of the chest in 3-6 months.. Soft Tissue Neck CT 12/24/23 19:34 IMPRESSION: Heterogeneous, likely cystic and solid left lower neck mass measuring up to 6.3 cm. May represent a necrotic lymph node, other necrotic mass, or abscess. If there has been history of recent catheterization on the left, vascular injury including pseudoaneurysm could be considered, but this is thought to be much less likely. Venous Doppler Study 12/26/23 16:42 IMPRESSION: 1. No deep venous thrombosis. Lymph Node Biopsy Ultrasound 12/27/23 12:37 IMPRESSION: 1. Successful Ultrasound-guided biopsy of a 5 cm relatively solid likely partially necrotic left supraclavicular mass. Labs Labs: Laboratory Results - last 24 hr 12/25/23 12/26/23 12/26/23 17:18 19:21 19:48 WBC RBC Hgb Hct MCV MCH MCHC RDW Plt Count MPV Immature Gran % (Auto) Neut % (Auto) Lymph % (Auto) [place] % (Auto) Eos % (Auto) Baso % (Auto) Lymph # (Auto) [place] # (Auto) Eos # (Auto) Baso # (Auto) Abs Immat Gran (auto) Absolute Neuts (auto) Absolute Nucleated RBC Total Counted Neutrophils % (Manual) Band Neutrophils % Lymphocytes % (Manual) Nucleated RBC % Abs Neuts (Manual) Abs Lymphs (Manual) Hypersegmented Neuts Platelet Estimate Hypochromasia Anisocytosis Schistocytes ESR PT INR APTT 96.7 H Sodium Potassium Chloride Carbon Dioxide Anion Gap BUN Creatinine Estim Creat Clear Calc Estimated GFR Glucose POC Capillary Glucose 194 H Calcium Total Bilirubin AST ALT Alkaline Phosphatase C-Reactive Protein Total Protein Albumin Procalcitonin Free T3 pg/mL 1.7 L 12/27/23 12/27/23 12/27/23 07:51 08:15 10:13 WBC 34.3 H RBC 3.42 L Hgb 8.4 L Hct 27.8 L MCV 81.3 MCH 24.6 L MCHC 30.2 L RDW 15.2 H Plt Count 388 H MPV 8.2 Immature Gran % (Auto) 3.5 H Neut % (Auto) 89.2 H Lymph % (Auto) 2.9 L [place] % (Auto) 3.5 Eos % (Auto) 0.5 Baso % (Auto) 0.4 Lymph # (Auto) 0.99 [place] # (Auto) 1.2 H Eos # (Auto) 0.2 Baso # (Auto) 0.1 Abs Immat Gran (auto) 1.20 H Absolute Neuts (auto) 30.6 H Absolute Nucleated RBC 0.000 Total Counted Neutrophils % (Manual) Band Neutrophils % Lymphocytes % (Manual) Nucleated RBC % 0.0 Abs Neuts (Manual) Abs Lymphs (Manual) Hypersegmented Neuts Present Platelet Estimate Adequate Hypochromasia Anisocytosis 1+ Schistocytes None seen ESR 110 H PT 15.8 H 16.4 H INR 1.2 1.3 APTT 29.6 Sodium 131 L Potassium 3.4 Chloride 100 Carbon Dioxide 23 Anion Gap 8 BUN 8 Creatinine 0.60 L Estim Creat Clear Calc 92 Estimated GFR > 60 Glucose 176 H POC Capillary Glucose 194 H Calcium 9.0 Total Bilirubin 0.7 AST 12 L ALT 6 Alkaline Phosphatase 132 H C-Reactive Protein 35.4 H Total Protein 6.0 L Albumin 2.7 L Procalcitonin 0.8 Free T3 pg/mL 12/27/23 12/27/23 16:08 17:13 WBC 31.9 H RBC 3.28 L Hgb 8.0 L Hct 26.2 L MCV 79.9 L MCH 24.4 L MCHC 30.5 L RDW 14.9 H Plt Count 372 MPV 8.1 Immature Gran % (Auto) Not Reportable Neut % (Auto) Not Reportable Lymph % (Auto) Not Reportable [place] % (Auto) Not Reportable Eos % (Auto) Not Reportable Baso % (Auto) Not Reportable Lymph # (Auto) Not Reportable [place] # (Auto) Not Reportable Eos # (Auto) Not Reportable Baso # (Auto) Not Reportable Abs Immat Gran (auto) Not Reportable Absolute Neuts (auto) Not Reportable Absolute Nucleated RBC Not Reportable Total Counted 100 Neutrophils % (Manual) 98 H Band Neutrophils % 1 Lymphocytes % (Manual) 1.0 L Nucleated RBC % Not Reportable Abs Neuts (Manual) 31.58 H Abs Lymphs (Manual) 0.31 L Hypersegmented Neuts Platelet Estimate Adequate Hypochromasia 1+ Anisocytosis Schistocytes None seen ESR PT 16.4 H INR 1.3 APTT 36.0 Sodium Potassium Chloride Carbon Dioxide Anion Gap BUN Creatinine Estim Creat Clear Calc Estimated GFR Glucose POC Capillary Glucose 148 H Calcium Total Bilirubin AST ALT Alkaline Phosphatase C-Reactive Protein Total Protein Albumin Procalcitonin Free T3 pg/mL Quality VTE Prophylaxis VTE prophylaxis: pharmacologic ordered (Heparin GGT per protocol.) Hospitalist MIPS Advance Care Plan I have confirmed that the patient's Advanced Care Plan is present, code status i s documented, or surrogate decision maker is listed in patient medical record.: Yes Medication Reconciliation I have utilized all available resources to obtain, update and review the patients current medications (includes all prescriptions, OTC, herbals, cannabis, and nutritional supplements).: Yes
[2023-12-27 21:00] LABS: Glucose Point of Care 163 mg/dl (65-105)
[2023-12-28] VITALS: PULSE 110; PULSE 129; O2SAT 94
[2023-12-28] MEDS: MORPHINE SULFATE (*CRX) 2 MG/ML INJ IV PUSH ×4 (00:20→16:42)
[2023-12-28 01:18] LABS: Partial Thromboplastin Time 54.8 Seconds (22.3-36.8)
[2023-12-28] MEDS: HEPARIN SODIUM 5,000 UNITS/ML VIAL 6000 UNITS IV PUSH (01:28)
[2023-12-28 04:00] VITALS: BP 153/72; PULSE 113; PULSE 116; RESP 14; TEMP 37.2; O2SAT 96
[2023-12-28] MEDS: metroNIDAZOLE 500 MG TABLET PO ×3 (05:16→20:41)
[2023-12-28] MEDS: CEFEPIME 2 GM/NS 50 ML 2 GM/50 ML BAG IVPB ×2 (05:16→16:40)
[2023-12-28] MEDS: LEVOTHYROXINE SODIUM 125 MCG TABLET PO (05:21)
[2023-12-28 07:41] LABS: Hematocrit 27.1 % (37.0-47.0); Mean Corpuscular HGB Conc 29.5 g/dl (32-36); Mean Corpuscular Hemoglobin 23.7 pg (26-34); Mean Corpuscular Volume 80.4 fl (80-100); Mean Platelet Volume 8.1 fl (7.4-10.4); Platelet Count Result 386 k/mm3 (150-375); Red Blood Count 3.37 M/mm3 (4.2-5.4); Red Cell Distribution Width 15.2 % (11.5-14.5)
[2023-12-28 07:53] LABS: Glucose Point of Care 179 mg/dl (65-105)
[2023-12-28 08:00] VITALS: BP 151/64; PULSE 114; PULSE 98; RESP 20; TEMP 36.4; O2SAT 94
[2023-12-28 08:07] LABS: Alanine Aminotransferase 7 U/L (6-35); Albumin Level 2.5 g/dL (3.5-5.1); Alkaline Phosphatase 157 U/L (38-126); Anion Gap 9 mmol/L (4-12); Aspartate Amino Transferase 15 U/L (14-36); Bilirubin,Total 0.5 mg/dL (0.2-1.3); Blood Urea Nitrogen 8 mg/dL (7-17); Calcium 8.6 mg/dL (8.4-10.2); Carbon Dioxide 26 mmol/L (22-30); Chloride 97 mmol/L (98-107); Estimated CRCL calculation 80 ml/min; Estimated Glomerular Filt Rate > 60; Glucose 168 mg/dL (65-110); Potassium 3.1 mmol/L (3.4-5.0); Sodium 132 mmol/L (137-145)
[2023-12-28 08:13] LABS: Partial Thromboplastin Time 78.1 Seconds (22.3-36.8)
[2023-12-28 08:18] LABS: Band Neutrophils Percent 4 % (0-6); Lymphocytes Absolute Manual 0.66 K/mm3 (1.1-4.5); Lymphocytes Percent Manual 2 % (18-44); Monocytes Absolute Manual 0.33 K/mm3 (0.1-0.90); Monocytes Percent Manual 1 % (3-9); Neutrophils Absolute Manual 32.01 K/mm3 (1.7-7.2); Neutrophils Percent Manual 93 % (46-73); Total Cells Counted 100
[2023-12-28 08:19] LABS: Anisocytosis 1+; Platelet Estimate Increased (Adequate); Schistocytes None Seen
[2023-12-28] MEDS: CHOLECALCIFEROL 1,000 UNITS TABLET 2000 UNITS PO (09:48)
[2023-12-28] MEDS: SIMVASTATIN 20 MG TABLET PO (09:48)
[2023-12-28] MEDS: AZITHROMYCIN 250 MG TABLET 500 MG PO (09:48)
[2023-12-28] MEDS: lisinopriL 20 MG TABLET PO (09:48)
[2023-12-28] MEDS: HEPARIN SOD/D5W 100 UNITS/ML 25,000 UNITS/250 ML BAG 16 UNITS IV CONT (10:00)
[2023-12-28 12:00] VITALS: BP 148/62; PULSE 113; PULSE 79; RESP 20; TEMP 37.1; O2SAT 94
[2023-12-28 12:00] LABS: Glucose Point of Care 187 mg/dl (65-105)
[2023-12-28] MEDS: HYDROcodone/acetaminophen (*CRX) 5-325 MG TABLET 1 TAB PO ×2 (13:22→20:41)
--- NOTE | 2023-12-28 14:01 | P.PNIM_ITS ---
Progress Note: A&P Assessment and Plan (1) Multiple subsegmental pulmonary emboli without acute cor pulmonale: Code(s): I26.94 - Multiple subsegmental thrombotic pulmonary emboli without acute cor pulmonale Status: Acute Assessment and Plan: - Reports about 5 months of dyspnea on exertion, more acutely short of breath in the last few weeks - Continue heparin drip. No right heart strain on CT or Echo - Hx of malignancy as noted. Consider transition to oral meds if no plans for further procedures. (2) Sepsis: Code(s): A41.9 - Sepsis, unspecified organism Status: Acute Assessment and Plan: CT with possible necrotizing neck mass. WBC's stable and slightly trended up. Currently on Cefepime 2G q12 (12/24-) and Azithromycin. - Likely a longer course with repeat imaging prior to discontinuing antibiotics. - Has a PET scan scheduled on 01/11 - Blood-cultures NGTD. - Continue to follow cultures and Biopsy results. (3) Mass in neck: Code(s): R22.1 - Localized swelling, mass and lump, neck Status: Acute Assessment and Plan: Hx uterine cancer. Follows with Dr. Gonzalez at the [facility]. Had post-menopausal bleeding 03/2022, subsequently had a D&C that showed endometrial adenocarcinoma. 10/31/22 CT AP showed an indeterminate 8mm LLL pulmonary nodule, no suspiscious pelvic adenopathy. Completed radiation 12/20/22. Patient reports neck mass is new in the last few weeks, has been increasing in size, and has been more painful. More of an increase in size in the week prior to admission, with associated fevers. Patient reports no recent procedures, and no IV's were placed in her neck 12/24 CT Neck showed Heterogeneous, likely cystic and solid left lower neck mass measuring up to 6.3 cm. May represent a necrotic lymph node, other necrotic mass, or abscess. If there has been history of recent catheterization on the left, vascular injury including pseudoaneurysm could be considered, but this is thought to be much less likely 12/23 CTA Subsegmental, nonocclusive emboli in the bilateral upper lobes and right lower lobe. Low clot burden. No evidence of right heart strain. Small pericardial effusion. Multiple pulmonary nodules measuring up to 8mm, recommend follow-up low-dose noncontrast CT of the chest in 3-6 months.. PLAN --She has follow up with her oncologist scheduled on 01/[address] also scheduled at that time. --US guided biopsy done 12/27/23 and results pending. -- Venous dopplers negative. -- TTE confirms no heart strain. --given possible malignancy, pt at chronically increased risk of DVT/PE. --Continue Empiric Cefepime, Flagyl and Azithromycin for possible abscess vs malignancy with superimposed infection/abscess. --Procalcitonin wnl. -- WBC, CRP, ESR all remain elevated. --Biopsy, sent for cytology, bacterial & fungal GS/Culture, AFB --Pain control: Tylenol, oxycodone prn. Miralax for bowel regimen (4) Type 2 diabetes mellitus with hyperglycemia, without long-term current use of insulin: Code(s): E11.65 - Type 2 diabetes mellitus with hyperglycemia Status: Acute Assessment and Plan: Home meds: Metformin 1000mg BID --Hold metformin and continue SSI (5) Postablative hypothyroidism: Code(s): E89.0 - Postprocedural hypothyroidism Status: Acute Assessment and Plan: Continue synthroid (6) Essential hypertension: Code(s): I10 - Essential (primary) hypertension Status: Acute Assessment and Plan: Home meds: Lisinopril 20mg Continue home med (7) Pericardial effusion: Code(s): I31.39 - Other pericardial effusion (noninflammatory) Status: Acute Assessment and Plan: 12/24 TTE Small pericardial effusion. Mild tricuspid regurg, small pericardial effusion, normal right atrial pressure, LVEF >70% (8) Microcytic anemia: Code(s): D50.9 - Iron deficiency anemia, unspecified Status: Acute Assessment and Plan: - H&H fairly stable. - Continue to monitor closely. Subjective Date/time seen: 12/28/23 14:01 Patient calm on bedrest and states she feels ok. Denies any acute distress. Interval history: Patient calm on bedrest and appears to be in no acute distress. Review of Systems Review of Systems: 12 systems were reviewed with pertinent positives and negatives per HPI. Except as documented in the HPI, all other systems were reviewed and are negative. All systems reviewed & are unremarkable except as noted in HPI and below Exam Narrative: Weight 92 kg BMI 32.7 General - Awake and alert. No acute distress Eyes - PERRLA, EOM intact ENT - No thrush, No erythema Neck - Moderate swelling left neck region, moderately tender to palpation, no fluctuance or induration or increased warmth. Cardiovascular - RRR no murmurs, no JVD Lungs: Clear to auscultation, No wheezing, use of accessory muscles, no crackles Skin - Skin warm and dry, Biopsy site with dry band-aid. Abdomen - Normal bowel sounds, abdomen soft and nontender Extremities - No edema, cyanosis or clubbing Musculoskeletal - 5/5 strength, normal range of motion, 1+ edema to carmita LE. Neurological ? Alert and oriented x 3, CN II-XII grossly intact. Psych: Normal mood and affect. Objective Data Vital Signs Vital Signs: Vital Signs - 24 hr 12/27/23 16:00 12/27/23 16:00 12/27/23 19:49 Temperature 97.5 F L Pulse Rate 103 H 118 H Respiratory Rate 18 Blood Pressure 136/57 L Pulse Oximetry 94 94 Oxygen Delivery Room Air 12/27/23 20:00 12/27/23 20:00 12/27/23 20:00 Temperature 99.0 F Pulse Rate 110 H 108 H Respiratory Rate 14 Blood Pressure 148/62 H Pulse Oximetry 94 Oxygen Delivery Room Air 12/28/23 00:00 12/28/23 00:00 12/28/23 04:00 Temperature Pulse Rate 110 H 129 H 113 H Respiratory Rate Blood Pressure Pulse Oximetry 94 Oxygen Delivery 12/28/23 04:00 12/28/23 08:00 12/28/23 08:00 Temperature 99.0 F 97.6 F Pulse Rate 116 H 114 H 114 H Respiratory Rate 14 20 20 Blood Pressure 153/72 H 151/64 H Pulse Oximetry 96 94 94 Oxygen Delivery Room Air 12/28/23 12:00 Temperature 98.8 F Pulse Rate 113 H Respiratory Rate 20 Blood Pressure 148/62 H Pulse Oximetry 94 Oxygen Delivery Intake/Output Intake/Output: Intake & Output 12/25/23 12/26/23 12/27/23 12/28/23 23:59 23:59 23:59 23:59 Intake Total 3366.0 3488.2 3600.0 1876.8 Output Total 1150 1290 Balance 2216.0 3488.2 2310.0 1876.8 Meds/Results Medications: Active Medications Generic Name Dose Route Start Last Admin Trade Name Freq PRN Reason Stop Dose Admin Acetaminophen 650 mg 12/25/23 17:41 12/25/23 21:53 Acetaminophen 325 Mg Tablet PO 650 mg Q4H PRN Administration Mild Pain (1-3) or Fever Hydrocodone Bitart/Acetaminophen 1 tab 12/25/23 17:41 12/28/23 13:22 Hydrocodone/Acetaminophen (*Crx) 5-325 Mg Tablet PO 1 tab Q4H PRN Administration Moderate Pain (4-6) Azithromycin 500 mg 12/26/23 13:15 12/28/23 09:48 Azithromycin 250 Mg Tablet PO 12/30/23 09:01 500 mg DAILY LLOYD Administration Dextrose 12.5 gm 12/24/23 22:10 Dextrose 50% 25 Gm/50 Ml Syringe IV PUSH PRN PRN Hypoglycemia Protocol Glucagon 1 mg 12/24/23 22:10 Glucagon For Inj 1 Mg Vial IM PRN PRN Hypoglycemia Protocol Glucose 15 gm 12/24/23 22:10 Glucose Oral Gel 15 Gm Of Glucse In 37.5 Gm Tube PO PRN PRN Hypoglycemia Protocol Heparin Sodium (Porcine) 6,000 units 12/27/23 16:30 12/28/23 01:28 Heparin Sodium 5,000 Units/Ml Vial IV PUSH 6,000 units PRN PRN Administration aPTT less than 55 seconds Heparin Sodium (Porcine) 3,000 units 12/27/23 16:30 Heparin Sodium 5,000 Units/Ml Vial IV PUSH PRN PRN aPTT 55 - 70 seconds Hydromorphone HCl 0.5 mg 12/25/23 00:33 12/25/23 08:41 Hydromorphone Hcl Inj (*Crx) 1 Mg/Ml Syr IV PUSH 0.5 mg Q3H PRN Administration Breakthrough Pain Hydroxyzine HCl 25 mg 12/25/23 00:38 Hydroxyzine Hcl 25 Mg Tablet PO Q6H PRN nerves/itching Sodium Chloride 1,000 mls @ 100 mls/hr 12/24/23 22:05 12/28/23 05:21 Normal Saline Iv IV CONT Not Given .Q10H LLOYD Dextrose 1,000 mls @ 100 mls/hr 12/24/23 22:10 Dextrose 5% 1,000 Ml IVPB PRN PRN Hypoglycemia Protocol Cefepime HCl 2 gm in 50 mls @ 100 mls/hr 12/25/23 06:00 12/28/23 05:16 Maxipime 2 Gm/Ns 50 Ml IVPB 100 mls/hr Q12H LLOYD Administration Heparin Sodium/Dextrose 25,000 units in 250 mls @ 16 mls/hr 12/27/23 16:30 12/28/23 10:00 Heparin Sodium/D5w 100 Units/Ml IV CONT 1,600 units/hr .[id number] LLOYD 16 mls/hr Administration Protocol 1,600 UNITS/HR Insulin Aspart 3 - 6 units 12/25/23 08:00 12/28/23 13:23 Insulin Aspart (*Bkc) 100 Units/Ml SUB-Q Not Given TIDWM LLOYD Protocol Insulin Aspart 1 - 3 units 12/25/23 21:00 12/27/23 21:19 Insulin Aspart (*Bkc) 100 Units/Ml SUB-Q Not Given HS LLOYD Protocol Levothyroxine Sodium 125 mcg 12/26/23 06:30 12/28/23 05:21 Levothyroxine Sodium 125 Mcg Tablet PO 125 mcg DAILY@0630 LLOYD Administration Lisinopril 20 mg 12/25/23 09:00 12/28/23 09:48 Lisinopril 20 Mg Tablet PO 20 mg DAILY LLOYD Administration Metformin HCl 1,000 mg 12/25/23 08:00 12/25/23 08:36 Metformin Hcl 500 Mg Tablet PO 1,000 mg BIDWM LLO[facility]D Administration Metronidazole 500 mg 12/26/23 16:00 12/28/23 13:26 Metronidazole 500 Mg Tablet PO 500 mg Q8HR LLOYD Administration Morphine Sulfate 2 mg 12/25/23 17:41 12/28/23 09:46 Morphine Sulfate (*Crx) 2 Mg/Ml Inj IV PUSH 2 mg Q4H PRN Administration Pain Rated 7-10 Ondansetron HCl 4 mg 12/25/23 17:41 Ondansetron Inj 4 Mg/2 Ml Vial IV PUSH Q6H PRN Nausea And Vomiting Perflutren Lipid Microsphere 0 ml 12/26/23 16:13 Perflutren Lipid Microspheres 1.5 Ml Vial Diluted To 10 Ml Total Volume IV PUSH 12/29/23 16:13 ONCE PRN adequate visualization Protocol Simvastatin 20 mg 12/25/23 09:00 12/28/23 09:48 Simvastatin 20 Mg Tablet PO 20 mg DAILY LLOYD Administration Vitamin D 2,000 units 12/25/23 09:00 12/28/23 09:48 Cholecalciferol 1,000 Units Tablet PO 2,000 units DAILY LLOYD Administration Radiology Results: ITS Impressions Chest CTA 12/24/23 19:22 IMPRESSION: Subsegmental, nonocclusive emboli in the bilateral upper lobes and right lower lobe. Low clot burden. No evidence of right heart strain. Small pericardial effusion. Multiple pulmonary nodules measuring up to 8mm, recommend follow-up low-dose noncontrast CT of the chest in 3-6 months.. Soft Tissue Neck CT 12/24/23 19:34 IMPRESSION: Heterogeneous, likely cystic and solid left lower neck mass measuring up to 6.3 cm. May represent a necrotic lymph node, other necrotic mass, or abscess. If there has been history of recent catheterization on the left, vascular injury including pseudoaneurysm could be considered, but this is thought to be much less likely. Venous Doppler Study 12/26/23 16:42 IMPRESSION: 1. No deep venous thrombosis. Lymph Node Biopsy Ultrasound 12/27/23 12:37 IMPRESSION: 1. Successful Ultrasound-guided biopsy of a 5 cm relatively solid likely partially necrotic left supraclavicular mass. Labs Labs: Laboratory Results - last 24 hr 12/25/23 12/27/23 12/27/23 17:18 16:08 17:13 WBC 31.9 H RBC 3.28 L Hgb 8.0 L Hct 26.2 L MCV 79.9 L MCH 24.4 L MCHC 30.5 L RDW 14.9 H Plt Count 372 MPV 8.1 Immature Gran % (Auto) Not Reportable Neut % (Auto) Not Reportable Lymph % (Auto) Not Reportable Sullivan % (Auto) Not Reportable Eos % (Auto) Not Reportable Baso % (Auto) Not Reportable Lymph # (Auto) Not Reportable Sullivan # (Auto) Not Reportable Eos # (Auto) Not Reportable Baso # (Auto) Not Reportable Abs Immat Gran (auto) Not Reportable Absolute Neuts (auto) Not Reportable Absolute Nucleated RBC Not Reportable Total Counted 100 Neutrophils % (Manual) 98 H Band Neutrophils % 1 Lymphocytes % (Manual) 1.0 L Monocytes % (Manual) Nucleated RBC % Not Reportable Abs Neuts (Manual) 31.58 H Abs Lymphs (Manual) 0.31 L Abs Monocytes (Manual) Platelet Estimate Adequate Hypochromasia 1+ Anisocytosis Schistocytes None seen PT 16.4 H INR 1.3 APTT 36.0 Sodium Potassium Chloride Carbon Dioxide Anion Gap BUN Creatinine Estim Creat Clear Calc Estimated GFR Glucose POC Capillary Glucose 148 H Calcium Total Bilirubin AST ALT Alkaline Phosphatase Total Protein Albumin Free T3 pg/mL 1.7 L 12/27/23 12/28/23 12/28/23 20:46 00:59 07:34 WBC 33.0 H RBC 3.37 L Hgb 8.0 L Hct 27.1 L MCV 80.4 MCH 23.7 L MCHC 29.5 L RDW 15.2 H Plt Count 386 H MPV 8.1 Immature Gran % (Auto) Not Reportable Neut % (Auto) Not Reportable Lymph % (Auto) Not Reportable Sullivan % (Auto) Not Reportable Eos % (Auto) Not Reportable Baso % (Auto) Not Reportable Lymph # (Auto) Not Reportable Sullivan # (Auto) Not Reportable Eos # (Auto) Not Reportable Baso # (Auto) Not Reportable Abs Immat Gran (auto) Not Reportable Absolute Neuts (auto) Not Reportable Absolute Nucleated RBC Not Reportable Total Counted 100 Neutrophils % (Manual) 93 H Band Neutrophils % 4 Lymphocytes % (Manual) 2 L Monocytes % (Manual) 1 L Nucleated RBC % Not Reportable Abs Neuts (Manual) 32.01 H Abs Lymphs (Manual) 0.66 L Abs Monocytes (Manual) 0.33 Platelet Estimate Increased Hypochromasia Anisocytosis 1+ Schistocytes None seen PT INR APTT 54.8 H 78.1 H Sodium 132 L Potassium 3.1 L Chloride 97 L Carbon Dioxide 26 Anion Gap 9 BUN 8 Creatinine 0.70 Estim Creat Clear Calc 80 Estimated GFR > 60 Glucose 168 H POC Capillary Glucose 163 H Calcium 8.6 Total Bilirubin 0.5 AST 15 ALT 7 Alkaline Phosphatase 157 H Total Protein 6.0 L Albumin 2.5 L Free T3 pg/mL 12/28/23 12/28/23 07:45 11:57 WBC RBC Hgb Hct MCV MCH MCHC RDW Plt Count MPV Immature Gran % (Auto) Neut % (Auto) Lymph % (Auto) Sullivan % (Auto) Eos % (Auto) Baso % (Auto) Lymph # (Auto) Sullivan # (Auto) Eos # (Auto) Baso # (Auto) Abs Immat Gran (auto) Absolute Neuts (auto) Absolute Nucleated RBC Total Counted Neutrophils % (Manual) Band Neutrophils % Lymphocytes % (Manual) Monocytes % (Manual) Nucleated RBC % Abs Neuts (Manual) Abs Lymphs (Manual) Abs Monocytes (Manual) Platelet Estimate Hypochromasia Anisocytosis Schistocytes PT INR APTT Sodium Potassium Chloride Carbon Dioxide Anion Gap BUN Creatinine Estim Creat Clear Calc Estimated GFR Glucose POC Capillary Glucose 179 H 187 H Calcium Total Bilirubin AST ALT Alkaline Phosphatase Total Protein Albumin Free T3 pg/mL Quality VTE Prophylaxis VTE prophylaxis: pharmacologic ordered (Heparin GGT per protocol.) Hospitalist MIPS Advance Care Plan I have confirmed that the patient's Advanced Care Plan is present, code status is documented, or surrogate decision maker is listed in patient medical record.: Yes Medication Reconciliation I have utilized all available resources to obtain, update and review the patients current medications (includes all prescriptions, OTC, herbals, cannabis, and nutritional supplements).: Yes
[2023-12-28 16:00] VITALS: BP 130/67; PULSE 80; PULSE 96; RESP 14; TEMP 36.3; O2SAT 97
[2023-12-28 16:37] LABS: Glucose Point of Care 188 mg/dl (65-105)
[2023-12-28] MEDS: SODIUM CHLORIDE 0.9% IV 1,000 ML 100 ML IV CONT (16:40)
--- NOTE | 2023-12-28 18:38 | PC.NURSE ---
Addendum entered by Marta Camejo RN 12/28/23 18:56: 1856- Phlebotomy called is on way to get PTT. Dr Morrison called, no new orders. Original Note: 1629- called Phlebotomy, no PTT drawn that timed for 1629. Left message on vocera, called Laboratory and they have not seen anyone from phlebotomy.
[2023-12-28 19:27] LABS: Partial Thromboplastin Time 66.9 Seconds (22.3-36.8)
[2023-12-28] MEDS: HEPARIN SODIUM 5,000 UNITS/ML VIAL 3000 UNITS IV PUSH (19:42)
[2023-12-28 20:00] VITALS: BP 139/61; PULSE 106; PULSE 107; RESP 16; TEMP 37.3; O2SAT 97
[2023-12-28 20:37] LABS: Glucose Point of Care 179 mg/dl (65-105)
[2023-12-28] MEDS: hydrOXYzine HCL 25 MG TABLET PO (20:42)
[2023-12-28] MEDS: SODIUM CHLORIDE 0.9% IV 1,000 ML 75 ML IV CONT (20:42)
[2023-12-29] VITALS: BP 144/53; PULSE 103; PULSE 105; RESP 14; TEMP 37.3; O2SAT 93
--- NOTE | 2023-12-29 01:29 | PC.NURSE ---
Daylight Savings Time For Daylight Savings Time Ending in the Fall - Clocks are moved back. For Daylight Savings Time Beginning in the Spring - Clocks are moved ahead. For [facility], the time of change occurs at 0200 hrs. Time is taken from the windows server architect. This entry on the patient's chart recognizes the change in time reflected during documentation. Example: 2 entries for vital signs may be charted for 0200 hrs.
--- NOTE | 2023-12-29 01:36 | PC.NURSE ---
Daylight Savings Time For Daylight Savings Time Ending in the Fall - Clocks are moved back. For Daylight Savings Time Beginning in the Spring - Clocks are moved ahead. For [facility], the time of change occurs at 0200 hrs. Time is taken from the gravity prospecting observer. This entry on the patient's chart recognizes the change in time reflected during documentation. Example: 2 entries for vital signs may be charted for 0200 hrs.
[2023-12-29] MEDS: HYDROcodone/acetaminophen (*CRX) 5-325 MG TABLET 1 TAB PO ×5 (01:45→22:00)
[2023-12-29 01:54] LABS: Partial Thromboplastin Time 88.3 Seconds (22.3-36.8)
[2023-12-29] MEDS: HEPARIN SOD/D5W 100 UNITS/ML 25,000 UNITS/250 ML BAG 17 UNITS IV CONT ×2 (03:44→19:59)
[2023-12-29 04:00] VITALS: BP 147/61; PULSE 102; RESP 16; TEMP 36.8; O2SAT 96
[2023-12-29] MEDS: metroNIDAZOLE 500 MG TABLET PO ×3 (05:46→20:00)
[2023-12-29] MEDS: LEVOTHYROXINE SODIUM 125 MCG TABLET PO (05:46)
[2023-12-29] MEDS: CEFEPIME 2 GM/NS 50 ML 2 GM/50 ML BAG IVPB ×2 (05:47→18:11)
[2023-12-29 08:00] VITALS: BP 145/65; PULSE 100; PULSE 96; RESP 18; TEMP 36.9; O2SAT 96
[2023-12-29 08:11] LABS: Hematocrit 25.3 % (37.0-47.0); Hemoglobin 7.7 g/dL (12.0-15.0); Mean Corpuscular HGB Conc 30.4 g/dl (32-36); Mean Corpuscular Hemoglobin 24.5 pg (26-34); Mean Corpuscular Volume 80.6 fl (80-100); Mean Platelet Volume 8.1 fl (7.4-10.4); Platelet Count Result 369 k/mm3 (150-375); Red Blood Count 3.14 M/mm3 (4.2-5.4); Red Cell Distribution Width 15.3 % (11.5-14.5); White Blood Count 31.4 K/mm3 (4.5-10.0)
[2023-12-29 08:35] LABS: Alanine Aminotransferase 8 U/L (6-35); Albumin Level 2.3 g/dL (3.5-5.1); Alkaline Phosphatase 141 U/L (38-126); Anion Gap 6 mmol/L (4-12); Aspartate Amino Transferase 15 U/L (14-36); Bilirubin,Total 0.5 mg/dL (0.2-1.3); Blood Urea Nitrogen 6 mg/dL (7-17); Calcium 8.5 mg/dL (8.4-10.2); Carbon Dioxide 30 mmol/L (22-30); Chloride 96 mmol/L (98-107); Estimated CRCL calculation 80 ml/min; Estimated Glomerular Filt Rate > 60; Glucose 171 mg/dL (65-110); Sodium 132 mmol/L (137-145)
[2023-12-29 08:45] LABS: Glucose Point of Care 184 mg/dl (65-105)
[2023-12-29 08:45] LABS: Band Neutrophils Percent 8 % (0-6); Lymphocytes Absolute Manual 0.62 K/mm3 (1.1-4.5); Lymphocytes Percent Manual 2 % (18-44); Neutrophils Absolute Manual 30.14 K/mm3 (1.7-7.2); Neutrophils Percent Manual 88 % (46-73); Total Cells Counted 100
[2023-12-29 08:46] LABS: Basophils Absolute Manual 0.31 K/mm3 (0.0-0.1); Basophils Percent Manual 1 % (0-1); Eosinophils Absolute Manual 0.31 K/mm3 (0.02-0.50); Eosinophils Percent Manual 1 % (0-4); Hypersegmented Neutrophils Present; Platelet Estimate Increased (Adequate); Schistocytes None Seen
[2023-12-29] MEDS: SODIUM CHLORIDE 0.9% IV 1,000 ML 75 ML IV CONT ×2 (08:55→22:01)
[2023-12-29] MEDS: SIMVASTATIN 20 MG TABLET PO (08:57)
[2023-12-29] MEDS: AZITHROMYCIN 250 MG TABLET 500 MG PO (08:57)
[2023-12-29] MEDS: CHOLECALCIFEROL 1,000 UNITS TABLET 2000 UNITS PO (08:57)
[2023-12-29] MEDS: lisinopriL 20 MG TABLET PO (09:00)
--- NOTE | 2023-12-29 09:01 | PC.NURSE ---
PTT results at 0848- 71, no change PTT ordered for daily draw and no change titration noted on MAR
[2023-12-29] MEDS: MORPHINE SULFATE (*CRX) 2 MG/ML INJ IV PUSH (10:27)
[2023-12-29 12:00] VITALS: BP 140/60; PULSE 77; PULSE 98; RESP 20; TEMP 37; O2SAT 98
[2023-12-29 12:05] LABS: Glucose Point of Care 184 mg/dl (65-105)
--- NOTE | 2023-12-29 15:56 | PM.IMPN ---
Progress Note: A&P Assessment and Plan (1) Multiple subsegmental pulmonary emboli without acute cor pulmonale: Code(s): I26.94 - Multiple subsegmental thrombotic pulmonary emboli without acute cor pulmonale Status: Acute Assessment and Plan: - Reports about 5 months of dyspnea on exertion, more acutely short of breath in the last few weeks - Continue heparin drip. No right heart strain on CT or Echo. - We'll consider PO anticoagulants. - Hx of cervical malignancy. (2) Sepsis: Code(s): A41.9 - Sepsis, unspecified organism Status: Acute Assessment and Plan: CT with possible necrotizing neck mass. WBC's remains elevated and stabilized. Currently on Cefepime 2G q12 (12/24-) Flagyl and Azithromycin. - Likely a longer course with repeat imaging prior to discontinuing antibiotics. - Has a PET scan scheduled on 01/11 - Blood-cultures NGTD. - Continue to follow cultures and Biopsy results. - Will consider transfer to [facility] for further w/u with no improvement in labs. (3) Mass in neck: Code(s): R22.1 - Localized swelling, mass and lump, neck Status: Acute Assessment and Plan: Hx uterine cancer. Follows with Dr. Gonzalez at the [facility]. Had post-menopausal bleeding 03/2022, subsequently had a D&C that showed endometrial adenocarcinoma. 10/31/22 CT AP showed an indeterminate 8mm LLL pulmonary nodule, no suspiscious pelvic adenopathy. Completed radiation 12/20/22. Patient reports neck mass is new in the last few weeks, has been increasing in size, and has been more painful. More of an increase in size in the week prior to admission, with associated fevers. Patient reports no recent procedures, and no IV's were placed in her neck 12/24 CT Neck showed Heterogeneous, likely cystic and solid left lower neck mass measuring up to 6.3 cm. May represent a necrotic lymph node, other necrotic mass, or abscess. If there has been history of recent catheterization on the left, vascular injury including pseudoaneurysm could be considered, but this is thought to be much less likely 12/23 CTA Subsegmental, nonocclusive emboli in the bilateral upper lobes and right lower lobe. Low clot burden. No evidence of right heart strain. Small pericardial effusion. Multiple pulmonary nodules measuring up to 8mm, recommend follow-up low-dose noncontrast CT of the chest in 3-6 months.. PLAN --She has follow up with her oncologist scheduled on 01/[address] also scheduled at that time. --US guided biopsy done 12/27/23 and results pending. -- Venous dopplers negative. -- TTE confirms no heart strain. --given possible malignancy, pt at chronically increased risk of DVT/PE. --Continue Empiric Cefepime, Flagyl and Azithromycin for possible abscess vs malignancy with superimposed infection/abscess. --Procalcitonin wnl. -- WBC, CRP, ESR all remain elevated. --Biopsy, sent for cytology, bacterial & fungal GS/Culture, AFB --Pain control: Tylenol, oxycodone prn. Miralax for bowel regimen -- We'll consider transfer to [facility] for further w/u. (4) Type 2 diabetes mellitus with hyperglycemia, without long-term current use of insulin: Code(s): E11.65 - Type 2 diabetes mellitus with hyperglycemia Status: Acute Assessment and Plan: Home meds: Metformin 1000mg BID --Hold metformin and continue SSI (5) Postablative hypothyroidism: Code(s): E89.0 - Postprocedural hypothyroidism Status: Acute Assessment and Plan: Continue synthroid (6) Essential hypertension: Code(s): I10 - Essential (primary) hypertension Status: Acute Assessment and Plan: Home meds: Lisinopril 20mg Continue home med (7) Pericardial effusion: Code(s): I31.39 - Other pericardial effusion (noninflammatory) Status: Acute Assessment and Plan: - 12/24 TTE Small pericardial effusion. Mild tricuspid regurg, small pericardial effusion, normal right atrial pressure, LVEF >70%. - No cardiopulmonary symptoms noted. (8) Microcytic anemia: Code(s): D50.9 - Iron deficiency anemia, unspecified Status: Acute Assessment and Plan: - H&H fairly stable. - Continue to monitor closely. Time Spent With Patient Time with patient: 15 - 25 minutes Subjective Date/time seen: 12/29/23 14:56 Patient states she feels alright. States feels like her neck swelling has slightly gone down and her breathing is better. Interval history: Patient calm on bedrest and appears to be in no acute distress. Review of Systems Review of Systems: 12 systems were reviewed with pertinent positives and negatives per HPI. Except as documented in the HPI, all other systems were reviewed and are negative. All systems reviewed & are unremarkable except as noted in HPI and below Exam Narrative: Weight 92 kg BMI 32.7 General - Awake and alert. No acute distress Eyes - PERRLA, EOM intact ENT - No thrush, No erythema Neck - Moderate swelling left neck region; anterior clavicle region, moderately tender to palpation, no fluctuance or induration or increased warmth. No drainage noted. Cardiovascular - RRR no murmurs, no JVD Lungs: Clear to auscultation, No wheezing, use of accessory muscles, no crackles Skin - Skin warm and dry, Biopsy site with dry band-aid. Abdomen - Normal bowel sounds, abdomen soft and nontender Extremities - 1+ edema carmita LE, no cyanosis or clubbing Musculoskeletal - 5/5 strength, normal range of motion, Neurological ? Alert and oriented x 3, CN II-XII grossly intact. Psych: Normal mood and affect. Objective Data Vital Signs Vital Signs: Vital Signs - 24 hr 12/28/23 20:00 12/28/23 20:00 12/28/23 20:00 Temperature 99.1 F Pulse Rate 106 H 107 H Respiratory Rate 16 Blood Pressure 139/61 Pulse Oximetry 97 Oxygen Delivery Room Air 12/29/23 00:00 12/29/23 00:00 12/29/23 04:00 Temperature 99.2 F Pulse Rate 103 H 105 H 102 H Respiratory Rate 14 Blood Pressure 144/53 H Pulse Oximetry 93 Oxygen Delivery 12/29/23 04:00 12/29/23 08:00 12/29/23 08:00 Temperature 98.3 F 98.4 F Pulse Rate 102 H 100 Respiratory Rate 16 18 Blood Pressure 147/61 H 145/65 H Pulse Oximetry 96 96 Oxygen Delivery Room Air 12/29/23 12:00 Temperature 98.6 F Pulse Rate 98 Respiratory Rate 20 Blood Pressure 140/60 Pulse Oximetry 98 Oxygen Delivery Intake/Output Intake/Output: Intake & Output 12/26/23 12/27/23 12/28/23 12/29/23 23:59 23:59 23:59 22:59 Intake Total 3488.2 3600.0 3432.3 3079.1 Output Total 1290 Balance 3488.2 2310.0 3432.3 3079.1 Meds/Results Medications: Active Medications Generic Name Dose Route Start Last Admin Trade Name Freq PRN Reason Stop Dose Admin Acetaminophen 650 mg 12/25/23 17:41 12/25/23 21:53 Acetaminophen 325 Mg Tablet PO 650 mg Q4H PRN Administration Mild Pain (1-3) or Fever Hydrocodone Bitart/Acetaminophen 1 tab 12/25/23 17:41 12/29/23 11:22 Hydrocodone/Acetaminophen (*Crx) 5-325 Mg Tablet PO 1 tab Q4H PRN Administration Moderate Pain (4-6) Azithromycin 500 mg 12/26/23 13:15 12/29/23 08:57 Azithromycin 250 Mg Tablet PO 12/30/23 09:01 500 mg DAILY L[facility] Administration Dextrose 12.5 gm 12/24/23 22:10 Dextrose 50% 25 Gm/50 Ml Syringe IV PUSH PRN PRN Hypoglycemia Protocol Glucagon 1 mg 12/24/23 22:10 Glucagon For Inj 1 Mg Vial IM PRN PRN Hypoglycemia Protocol Glucose 15 gm 12/24/23 22:10 Glucose Oral Gel 15 Gm Of Glucse In 37.5 Gm Tube PO PRN PRN Hypoglycemia Protocol Heparin Sodium (Porcine) 6,000 units 12/27/23 16:30 12/28/23 01:28 Heparin Sodium 5,000 Units/Ml Vial IV PUSH 6,000 units PRN PRN Administration aPTT less than 55 seconds Heparin Sodium (Porcine) 3,000 units 12/27/23 16:30 12/28/23 19:42 Heparin Sodium 5,000 Units/Ml Vial IV PUSH 3,000 units PRN PRN Administration aPTT 55 - 70 seconds Hydromorphone HCl 0.5 mg 12/25/23 00:33 12/25/23 08:41 Hydromorphone Hcl Inj (*Crx) 1 Mg/Ml Syr IV PUSH 0.5 mg Q3H PRN Administration Breakthrough Pain Hydroxyzine HCl 25 mg 12/25/23 00:38 12/28/23 20:42 Hydroxyzine Hcl 25 Mg Tablet PO 25 mg Q6H PRN Administration nerves/itching Sodium Chloride 1,000 mls @ 100 mls/hr 12/24/23 22:05 12/29/23 08:55 Normal Saline Iv IV CONT 75 mls/hr .Q10H [place] Administration Dextrose 1,000 mls @ 100 mls/hr 12/24/23 22:10 Dextrose 5% 1,000 Ml IVPB PRN PRN Hypoglycemia Protocol Cefepime HCl 2 gm in 50 mls @ 100 mls/hr 12/25/23 06:00 12/29/23 06:15 Maxipime 2 Gm/Ns 50 Ml IVPB Infused Q12H [facility] Infusion Heparin Sodium/Dextrose 25,000 units in 250 mls @ 17 mls/hr 12/27/23 16:30 12/29/23 08:56 Heparin Sodium/D5w 100 Units/Ml IV CONT 1,700 units/hr .[id number] L[facility]D 17 mls/hr Titration Protocol 1,700 UNITS/HR Insulin Aspart 3 - 6 units 12/25/23 08:00 12/29/23 12:55 Insulin Aspart (*Bkc) 100 Units/Ml SUB-Q Not Given TIDWM [facility] Protocol Insulin Aspart 1 - 3 units 12/25/23 21:00 12/28/23 20:37 Insulin Aspart (*Bkc) 100 Units/Ml SUB-Q Not Given HS [facility] Protocol Levothyroxine Sodium 125 mcg 12/26/23 06:30 12/29/23 05:46 Levothyroxine Sodium 125 Mcg Tablet PO 125 mcg DAILY@0630 [facility] Administration Lisinopril 20 mg 12/25/23 09:00 12/29/23 09:00 Lisinopril 20 Mg Tablet PO 20 mg DAILY [facility] Administration Metformin HCl 1,000 mg 12/25/23 08:00 12/25/23 08:36 Metformin Hcl 500 Mg Tablet PO 1,000 mg BIDWM [place] Administration Metronidazole 500 mg 12/26/23 16:00 12/29/23 14:55 Metronidazole 500 Mg Tablet PO 500 mg Q8HR [facility] Administration Morphine Sulfate 2 mg 12/25/23 17:41 12/29/23 10:27 Morphine Sulfate (*Crx) 2 Mg/Ml Inj IV PUSH 2 mg Q4H PRN Administration Pain Rated 7-10 Ondansetron HCl 4 mg 12/25/23 17:41 Ondansetron Inj 4 Mg/2 Ml Vial IV PUSH Q6H PRN Nausea And Vomiting Perflutren Lipid Microsphere 0 ml 12/26/23 16:13 Perflutren Lipid Microspheres 1.5 Ml Vial Diluted To 10 Ml Total Volume IV PUSH 12/29/23 16:13 ONCE PRN adequate visualization Protocol Simvastatin 20 mg 12/25/23 09:00 11 08:57 Simvastatin 20 Mg Tablet PO 20 mg DAILY [facility] Administration Vitamin D 2,000 units 12/25/23 09:00 11 08:57 Cholecalciferol 1,000 Units Tablet PO 2,000 units DAILY [facility] Administration Radiology Results: ITS Impressions Chest CTA 12/24/23 19:22 IMPRESSION: Subsegmental, nonocclusive emboli in the bilateral upper lobes and right lower lobe. Low clot burden. No evidence of right heart strain. Small pericardial effusion. Multiple pulmonary nodules measuring up to 8mm, recommend follow-up low-dose noncontrast CT of the chest in 3-6 months.. Soft Tissue Neck CT 12/24/23 19:34 IMPRESSION: Heterogeneous, likely cystic and solid left lower neck mass measuring up to 6.3 cm. May represent a necrotic lymph node, other necrotic mass, or abscess. If there has been history of recent catheterization on the left, vascular injury including pseudoaneurysm could be considered, but this is thought to be much less likely. Venous Doppler Study 12/26/23 16:42 IMPRESSION: 1. No deep venous thrombosis. Lymph Node Biopsy Ultrasound 12/27/23 12:37 IMPRESSION: 1. Successful Ultrasound-guided biopsy of a 5 cm relatively solid likely partially necrotic left supraclavicular mass. Labs Labs: Laboratory Results - last 24 hr 12/28/23 12/28/23 12/29/23 19:09 20:34 01:32 [employer] WBC RBC Hgb Hct MCV MCH MCHC RDW Plt Count MPV Immature Gran % (Auto) Neut % (Auto) Lymph % (Auto) [place] % (Auto) Eos % (Auto) Baso % (Auto) Lymph # (Auto) [place] # (Auto) Eos # (Auto) Baso # (Auto) Abs Immat Gran (auto) Absolute Neuts (auto) Absolute Nucleated RBC Total Counted Neutrophils % (Manual) Band Neutrophils % Lymphocytes % (Manual) Eosinophils % (Manual) Basophils % (Manual) Nucleated RBC % Abs Neuts (Manual) Abs Lymphs (Manual) Absolute Eos (Manual) Abs Basophils (Manual) Hypersegmented Neuts Platelet Estimate Schistocytes APTT 66.9 H 88.3 H Sodium Potassium Chloride Carbon Dioxide Anion Gap BUN Creatinine Estim Creat Clear Calc Estimated GFR Glucose POC Capillary Glucose 179 H Calcium Total Bilirubin AST ALT Alkaline Phosphatase Total Protein Albumin 12/29/23 12/29/23 12/29/23 07:54 08:07 11:59 WBC 31.4 H RBC 3.14 L Hgb 7.7 L Hct 25.3 L MCV 80.6 MCH 24.5 L MCHC 30.4 L RDW 15.3 H Plt Count 369 MPV 8.1 Immature Gran % (Auto) Not Reportable Neut % (Auto) Not Reportable Lymph % (Auto) Not Reportable Pepin % (Auto) Not Reportable Eos % (Auto) Not Reportable Baso % (Auto) Not Reportable Lymph # (Auto) Not Reportable Pepin # (Auto) Not Reportable Eos # (Auto) Not Reportable Baso # (Auto) Not Reportable Abs Immat Gran (auto) Not Reportable Absolute Neuts (auto) Not Reportable Absolute Nucleated RBC Not Reportable Total Counted 100 Neutrophils % (Manual) 88 H Band Neutrophils % 8 H Lymphocytes % (Manual) 2 L Eosinophils % (Manual) 1 Basophils % (Manual) 1 Nucleated RBC % Not Reportable Abs Neuts (Manual) 30.14 H Abs Lymphs (Manual) 0.62 L Absolute Eos (Manual) 0.31 Abs Basophils (Manual) 0.31 H Hypersegmented Neuts Present Platelet Estimate Increased Schistocytes None seen APTT 71.0 H Sodium 132 L Potassium 3.0 L Chloride 96 L Carbon Dioxide 30 Anion Gap 6 BUN 6 L Creatinine 0.70 Estim Creat Clear Calc 80 Estimated GFR > 60 Glucose 171 H POC Capillary Glucose 184 H 184 H Calcium 8.5 Total Bilirubin 0.5 AST 15 ALT 8 Alkaline Phosphatase 141 H Total Protein 5.0 L Albumin 2.3 L Quality VTE Prophylaxis VTE prophylaxis: pharmacologic ordered (Heparin GGT per protocol.) Hospitalist MIPS Advance Care Plan I have confirmed that the patient's Advanced Care Plan is present, code status is documented, or surrogate decision maker is listed in patient medical record.: Yes Medication Reconciliation I have utilized all available resources to obtain, update and review the patients current medications (includes all prescriptions, OTC, herbals, cannabis, and nutritional supplements).: Yes
[2023-12-29 16:00] VITALS: BP 169/76; PULSE 111; PULSE 93; RESP 18; TEMP 36.9; O2SAT 95
[2023-12-29 16:37] LABS: Glucose Point of Care 133 mg/dl (65-105)
[2023-12-29 20:00] VITALS: BP 133/66; PULSE 102; PULSE 109; RESP 14; TEMP 36.6; O2SAT 96
[2023-12-29] MEDS: hydrOXYzine HCL 25 MG TABLET PO (21:59)
[2023-12-30] VITALS (8 sets, daily range): BP systolic 141–158; BP diastolic 60–67; PULSE 93–109; RESP 14–18; TEMP 36.4–37.2; O2SAT 93–95
[2023-12-30] MEDS: CEFEPIME 2 GM/NS 50 ML 2 GM/50 ML BAG IVPB ×2 (05:04→17:05)
[2023-12-30] MEDS: LEVOTHYROXINE SODIUM 125 MCG TABLET PO (05:04)
[2023-12-30] MEDS: metroNIDAZOLE 500 MG TABLET PO ×3 (05:04→19:55)
[2023-12-30] MEDS: HYDROcodone/acetaminophen (*CRX) 5-325 MG TABLET 1 TAB PO ×5 (05:04→19:51)
[2023-12-30 07:48] LABS: Basophils Absolute Auto 0.1 K/mm3 (0.0-0.1); Basophils Percent Auto 0.3 % (0.2-1.2); Eosinophils Absolute Auto 0.1 K/mm3 (0-0.3); Eosinophils Percent Auto 0.3 % (0-4.4); Hematocrit 26.8 % (37.0-47.0); Hemoglobin 7.9 g/dL (12.0-15.0); Immature Granulocyte Absolute 1.48 K/mm3 (0.00-0.031); Immature Granulocyte Percent A 3.7 % (0-0.5); Lymphocytes Absolute Auto 1.01 K/mm3 (0.9-3.2); Lymphocytes Percent Auto 2.5 % (18.3-44.2); Mean Corpuscular HGB Conc 29.5 g/dl (32-36); Mean Corpuscular Hemoglobin 23.7 pg (26-34); Mean Corpuscular Volume 80.5 fl (80-100); Mean Platelet Volume 8.1 fl (7.4-10.4); Monocytes Absolute Auto 1.5 K/mm3 (0.1-0.6); Monocytes Percent Auto 3.6 % (2.6-8.5); Neutrophils Absolute Auto 35.7 K/mm3 (1.3-6.7); Neutrophils Percent Auto 89.6 % (45.5-73.1); Platelet Count Result 420 k/mm3 (150-375); Red Blood Count 3.33 M/mm3 (4.2-5.4); Red Cell Distribution Width 15.6 % (11.5-14.5); White Blood Count 39.9 K/mm3 (4.5-10.0)
[2023-12-30 08:00] LABS: Glucose Point of Care 184 mg/dl (65-105)
[2023-12-30 08:11] LABS: Alanine Aminotransferase 8 U/L (6-35); Albumin Level 2.6 g/dL (3.5-5.1); Alkaline Phosphatase 158 U/L (38-126); Anion Gap 9 mmol/L (4-12); Aspartate Amino Transferase 14 U/L (14-36); Bilirubin,Total 0.5 mg/dL (0.2-1.3); Blood Urea Nitrogen 6 mg/dL (7-17); Calcium 8.5 mg/dL (8.4-10.2); Carbon Dioxide 28 mmol/L (22-30); Chloride 94 mmol/L (98-107); Estimated CRCL calculation 93 ml/min; Estimated Glomerular Filt Rate > 60; Glucose 170 mg/dL (65-110); Sodium 131 mmol/L (137-145)
[2023-12-30 08:12] LABS: Partial Thromboplastin Time 45.4 Seconds (22.3-36.8)
[2023-12-30 08:37] LABS: CRP 29.4 mg/dL (<1.0)
[2023-12-30] MEDS: SIMVASTATIN 20 MG TABLET PO (08:49)
[2023-12-30] MEDS: AZITHROMYCIN 250 MG TABLET 500 MG PO (08:49)
[2023-12-30] MEDS: lisinopriL 20 MG TABLET PO (08:50)
[2023-12-30] MEDS: CHOLECALCIFEROL 1,000 UNITS TABLET 2000 UNITS PO (08:51)
[2023-12-30 09:36] LABS: Platelet Estimate Slightly Increased (Adequate)
[2023-12-30 09:37] LABS: Hypochromasia 1+; Microcytosis 1+ (NORMAL)
[2023-12-30 09:38] LABS: Schistocytes None Seen
[2023-12-30] MEDS: HEPARIN SODIUM 5,000 UNITS/ML VIAL 6000 UNITS IV PUSH (09:43)
[2023-12-30] MEDS: HEPARIN SOD/D5W 100 UNITS/ML 25,000 UNITS/250 ML BAG 20 UNITS IV CONT ×2 (09:43→19:50)
[2023-12-30 09:53] LABS: Erythrocyte Sedimentation Rate > 140 mm/hr (0-20)
[2023-12-30 11:39] LABS: Glucose Point of Care 168 mg/dl (65-105)
[2023-12-30] MEDS: LINEZOLID 600 MG TABLET PO ×2 (14:01→19:51)
--- NOTE | 2023-12-30 14:16 | P.PNGS_ITS ---
Progress Note: A&P Assessment and Plan (1) Mass in neck: Code(s): R22.1 - Localized swelling, mass and lump, neck Status: Acute Assessment and Plan: Patient has a large fixed 6cm neck mass extending from the carotid bifurcation to the left clavicle deep in the left neck impinging upon the left internal jugular vein almost complete occlusion. US-guided biopsy done on 12/26 and pathology still pending. If this is lymphoma, then Oncology should be consulted for recommendations for chemotherapy. If this is any other type of malignancy, then surgical evaluation by ENT or Surgical Oncology as an outpatient should be arranged. Plan I have discussed the patient's case and plan of care with Dr. Salvador. Subjective Subjective Date/Time Seen: 12/30/23 14:16 Patient reports: no new complaints Interval history: This is a 63-year-old woman who was admitted to the hospital with complaints of fatigue and fullness in her left neck. She was admitted with PE, sepsis, left neck mass. She underwent ultrasound-guided biopsy of the left neck mass on 12/27/2023. Pathology pending. Chart reviewed. Patient seen today. She reports pain in her left side of her head extending down her left neck and to her left shoulder. This has been ongoing for weeks. No acute changes overnight. Exam Const: General: comfortable and no acute distress Neck: Other: Large, firm, fixed mass of the left neck extending from the carotid bifurcation down to the supraclavicular region. Tender to palpation. Bandaid dry and intact over mass from biopsy. Objective Data Vital Signs Vital Signs: Vital Signs - 24 hr 12/29/23 16:00 12/29/23 16:00 12/29/23 20:00 Temperature 98.4 F Pulse Rate 111 H 93 109 H Respiratory Rate 18 Blood Pressure 169/76 H Pulse Oximetry 95 Oxygen Delivery 12/29/23 20:00 12/29/23 20:00 12/30/23 00:00 Temperature 97.8 F Pulse Rate 102 H 99 Respiratory Rate 14 Blood Pressure 133/66 Pulse Oximetry 96 Oxygen Delivery Room Air 12/30/23 00:00 12/30/23 04:00 12/30/23 04:00 Temperature 98.9 F 97.9 F Pulse Rate 93 108 H 109 H Respiratory Rate 16 14 Blood Pressure 141/62 H 144/64 H Pulse Oximetry 95 94 Oxygen Delivery 12/30/23 08:00 12/30/23 08:03 12/30/23 12:02 Temperature 98.6 F Pulse Rate 104 H 104 H 101 H Respiratory Rate 18 Blood Pressure 153/67 H Pulse Oximetry 94 Oxygen Delivery Intake/Output Intake/Output: Intake & Output 12/28/23 12/29/23 12/29/23 12/30/23 00:59 00:59 23:59 23:59 Intake Total 1433.5 Output Total 2750 Balance -1316.5 Meds/Results Medications: Active Medications Generic Name Dose Route Start Last Admin Trade Name Freq PRN Reason Stop Dose Admin Acetaminophen 650 mg 12/25/23 17:41 12/25/23 21:53 Acetaminophen 325 Mg Tablet PO 650 mg Q4H PRN Administration Mild Pain (1-3) or Fever Hydrocodone Bitart/Acetaminophen 1 tab 12/25/23 17:41 12/30/23 14:01 Hydrocodone/Acetaminophen (*Crx) 5-325 Mg Tablet PO 1 tab Q4H PRN Administration Moderate Pain (4-6) Dextrose 12.5 gm 12/24/23 22:10 Dextrose 50% 25 Gm/50 Ml Syringe IV PUSH PRN PRN Hypoglycemia Protocol Glucagon 1 mg 12/24/23 22:10 Glucagon For Inj 1 Mg Vial IM PRN PRN Hypoglycemia Protocol Glucose 15 gm 12/24/23 22:10 Glucose Oral Gel 15 Gm Of Glucse In 37.5 Gm Tube PO PRN PRN Hypoglycemia Protocol Heparin Sodium (Porcine) 6,000 units 12/27/23 16:30 12/30/23 09:43 Heparin Sodium 5,000 Units/Ml Vial IV PUSH 6,000 units PRN PRN Administration aPTT less than 55 seconds Heparin Sodium (Porcine) 3,000 units 12/27/23 16:30 12/28/23 19:42 Heparin Sodium 5,000 Units/Ml Vial IV PUSH 3,000 units PRN PRN Administration aPTT 55 - 70 seconds Hydromorphone HCl 0.5 mg 12/25/23 00:33 12/25/23 08:41 Hydromorphone Hcl Inj (*Crx) 1 Mg/Ml Syr IV PUSH 0.5 mg Q3H PRN Administration Breakthrough Pain Hydroxyzine HCl 25 mg 12/25/23 00:38 12/29/23 21:59 Hydroxyzine Hcl 25 Mg Tablet PO 25 mg Q6H PRN Administration nerves/itching Sodium Chloride 1,000 mls @ 100 mls/hr 12/24/23 22:05 12/29/23 22:01 Normal Saline Iv IV CONT 75 mls/hr .Q10H [facility] Administration Dextrose 1,000 mls @ 100 mls/hr 12/24/23 22:10 Dextrose 5% 1,000 Ml IVPB PRN PRN Hypoglycemia Protocol Cefepime HCl 2 gm in 50 mls @ 100 mls/hr 12/25/23 06:00 12/30/23 05:39 Maxipime 2 Gm/Ns 50 Ml IVPB Infused Q12H [facility] Infusion Heparin Sodium/Dextrose 25,000 units in 250 mls @ 20 mls/hr 12/27/23 16:30 12/30/23 09:43 Heparin Sodium/D5w 100 Units/Ml IV CONT 2,000 units/hr .[id number] [facility] 20 mls/hr Administration Protocol 2,000 UNITS/HR Insulin Aspart 3 - 6 units 12/25/23 08:00 12/30/23 11:47 Insulin Aspart (*Bkc) 100 Units/Ml SUB-Q Not Given TIDWM [facility] Protocol Insulin Aspart 1 - 3 units 12/25/23 21:00 12/29/23 20:00 Insulin Aspart (*Bkc) 100 Units/Ml SUB-Q Not Given HS [facility] Protocol Levothyroxine Sodium 125 mcg 12/26/23 06:30 12/30/23 05:04 Levothyroxine Sodium 125 Mcg Tablet PO 125 mcg DAILY@0630 [facility] Administration Linezolid 600 mg 12/30/23 13:00 12/30/23 14:01 Linezolid 600 Mg Tablet PO 600 mg Q12HR [facility] Administration Lisinopril 20 mg 12/25/23 09:00 12/30/23 08:50 Lisinopril 20 Mg Tablet PO 20 mg DAILY [facility] Administration Metformin HCl 1,000 mg 12/25/23 08:00 12/25/23 08:36 Metformin Hcl 500 Mg Tablet PO 1,000 mg BIDWM [facility] Administration Metronidazole 500 mg 12/26/23 16:00 12/30/23 14:01 Metronidazole 500 Mg Tablet PO 500 mg Q8HR [facility] Administration Morphine Sulfate 2 mg 12/25/23 17:41 12/29/23 10:27 Morphine Sulfate (*Crx) 2 Mg/Ml Inj IV PUSH 2 mg Q4H PRN Administration Pain Rated 7-10 Ondansetron HCl 4 mg 12/25/23 17:41 Ondansetron Inj 4 Mg/2 Ml Vial IV PUSH Q6H PRN Nausea And Vomiting Simvastatin 20 mg 12/25/23 09:00 12/30/23 08:49 Simvastatin 20 Mg Tablet PO 20 mg DAILY [facility] Administration Vitamin D 2,000 units 12/25/23 09:00 12/30/23 08:51 Cholecalciferol 1,000 Units Tablet PO 2,000 units DAILY [facility] Administration Radiology Results: ITS Impressions Chest CTA 12/24/23 19:22 IMPRESSION: Subsegmental, nonocclusive emboli in the bilateral upper lobes and right lower lobe. Low clot burden. No evidence of right heart strain. Small pericardial effusion. Multiple pulmonary nodules measuring up to 8mm, recommend follow-up low-dose noncontrast CT of the chest in 3-6 months.. Soft Tissue Neck CT 12/24/23 19:34 IMPRESSION: Heterogeneous, likely cystic and solid left lower neck mass measuring up to 6.3 cm. May represent a necrotic lymph node, other necrotic mass, or abscess. If there has been history of recent catheterization on the left, vascular injury including pseudoaneurysm could be considered, but this is thought to be much less likely. Venous Doppler Study 12/26/23 16:42 IMPRESSION: 1. No deep venous thrombosis. Lymph Node Biopsy Ultrasound 12/27/23 12:37 IMPRESSION: 1. Successful Ultrasound-guided biopsy of a 5 cm relatively solid likely partially necrotic left supraclavicular mass. Labs Labs: Laboratory Results - last 24 hr 12/29/23 12/30/23 12/30/23 16:30 07:24 07:31 WBC 39.9 H RBC 3.33 L Hgb 7.9 L Hct 26.8 L MCV 80.5 MCH 23.7 L MCHC 29.5 L RDW 15.6 H Plt Count 420 H MPV 8.1 Immature Gran % (Auto) 3.7 H Neut % (Auto) 89.6 H Lymph % (Auto) 2.5 L [place] % (Auto) 3.6 Eos % (Auto) 0.3 Baso % (Auto) 0.3 Lymph # (Auto) 1.01 [place] # (Auto) 1.5 H Eos # (Auto) 0.1 Baso # (Auto) 0.1 Abs Immat Gran (auto) 1.48 H Absolute Neuts (auto) 35.7 H Absolute Nucleated RBC 0.000 Nucleated RBC % 0.0 Platelet Estimate Slightly increased Hypochromasia 1+ Microcytosis 1+ Schistocytes None seen ESR > 140 H APTT 45.4 H Sodium 131 L Potassium 3.0 L Chloride 94 L Carbon Dioxide 28 Anion Gap 9 BUN 6 L Creatinine 0.60 L Estim Creat Clear Calc 93 Estimated GFR > 60 Glucose 170 H POC Capillary Glucose 133 H Calcium 8.5 Total Bilirubin 0.5 AST 14 ALT 8 Alkaline Phosphatase 158 H C-Reactive Protein 29.4 H Total Protein 6.0 L Albumin 2.6 L 12/30/23 12/30/23 07:47 11:34 WBC RBC Hgb Hct MCV MCH MCHC RDW Plt Count MPV Immature Gran % (Auto) Neut % (Auto) Lymph % (Auto) [place] % (Auto) Eos % (Auto) Baso % (Auto) Lymph # (Auto) [place] # (Auto) Eos # (Auto) Baso # (Auto) Abs Immat Gran (auto) Absolute Neuts (auto) Absolute Nucleated RBC Nucleated RBC % Platelet Estimate Hypochromasia Microcytosis Schistocytes ESR APTT Sodium Potassium Chloride Carbon Dioxide Anion Gap BUN Creatinine Estim Creat Clear Calc Estimated GFR Glucose POC Capillary Glucose 184 H 168 H Calcium Total Bilirubin AST ALT Alkaline Phosphatase C-Reactive Protein Total Protein Albumin
[2023-12-30 16:06] LABS: Partial Thromboplastin Time 96.1 Seconds (22.3-36.8)
[2023-12-30 16:31] LABS: Glucose Point of Care 179 mg/dl (65-105)
--- NOTE | 2023-12-30 17:10 | P.PNIM_ITS ---
Progress Note: A&P Assessment and Plan (1) Multiple subsegmental pulmonary emboli without acute cor pulmonale: Code(s): I26.94 - Multiple subsegmental thrombotic pulmonary emboli without acute cor pulmonale Status: Acute Assessment and Plan: - Reports about 5 months of dyspnea on exertion, more acutely short of breath in the last few weeks - No right heart strain on CT or Echo. - Currently on SQ Heparin drip. - Hx of cervical malignancy. (2) Sepsis: Code(s): A41.9 - Sepsis, unspecified organism Status: Acute Assessment and Plan: CT with possible necrotizing neck mass. WBC's remains elevated and stabilized. Currently on Cefepime 2G q12 (12/24-) Flagyl and Azithromycin. Linezolid added per ID Pharmacist. - Likely a longer course with repeat imaging prior to discontinuing antibiotics. - Has a PET scan scheduled on 01/11 - Blood-cultures NGTD. - Continue to follow cultures and Biopsy results. - [facility] transfer center called and awaiting response. (3) Mass in neck: Code(s): R22.1 - Localized swelling, mass and lump, neck Status: Acute Assessment and Plan: Hx uterine cancer. Follows with Dr. Gonzalez at [facility]. Had post-menopausal bleeding 03/2022, subsequently had a D&C that showed endometrial adenocarcinoma. 10/31/22 CT AP showed an indeterminate 8mm LLL pulmonary nodule, no suspiscious pelvic adenopathy. Completed radiation 12/20/22. Patient reports neck mass is new in the last few weeks, has been increasing in size, and has been more painful. More of an increase in size in the week prior to admission, with associated fevers. Patient reports no recent procedures, and no IV's were placed in her neck 12/24 CT Neck showed Heterogeneous, likely cystic and solid left lower neck mass measuring up to 6.3 cm. May represent a necrotic lymph node, other necrotic mass, or abscess. If there has been history of recent catheterization on the left, vascular injury including pseudoaneurysm could be considered, but this is thought to be much less likely 12/23 CTA Subsegmental, nonocclusive emboli in the bilateral upper lobes and right lower lobe. Low clot burden. No evidence of right heart strain. Small pericardial effusion. Multiple pulmonary nodules measuring up to 8mm, recommend follow-up low-dose noncontrast CT of the chest in 3-6 months.. PLAN --She has follow up with her oncologist scheduled on 01/[address] also scheduled at that time. --US guided biopsy done 12/27/23 and results pending. -- Venous dopplers negative. -- TTE confirms no heart strain. --given possible malignancy, pt at chronically increased risk of DVT/PE. --Continue Empiric Cefepime, Flagyl and Azithromycin for possible abscess vs malignancy with superimposed infection/abscess. --Procalcitonin wnl. -- WBC, CRP, ESR all remain elevated. --Biopsy, sent for cytology, bacterial & fungal GS/Culture, AFB --Pain control: Tylenol, oxycodone prn. Miralax for bowel regimen -- We'll consider transfer to [facility] for further w/u. [facility] called for transfer and awaiting response. (4) Type 2 diabetes mellitus with hyperglycemia, without long-term current use of insulin: Code(s): E11.65 - Type 2 diabetes mellitus with hyperglycemia Status: Acute Assessment and Plan: Home meds: Metformin 1000mg BID --Holding metformin and continue SSI (5) Postablative hypothyroidism: Code(s): E89.0 - Postprocedural hypothyroidism Status: Acute Assessment and Plan: Continue synthroid (6) Essential hypertension: Code(s): I10 - Essential (primary) hypertension Status: Acute Assessment and Plan: Home meds: Lisinopril 20mg Continue home med (7) Pericardial effusion: Code(s): I31.39 - Other pericardial effusion (noninflammatory) Status: Acute Assessment and Plan: - 12/24 TTE Small pericardial effusion. Mild tricuspid regurg, small pericardial effusion, normal right atrial pressure, LVEF >70%. - No cardiopulmonary symptoms noted. (8) Microcytic anemia: Code(s): D50.9 - Iron deficiency anemia, unspecified Status: Acute Assessment and Plan: - H&H fairly stable. - Continue to monitor closely. Plan [facility] called for transfer and awaiting response. Continue with broad-spectrum abx for now. Time Spent With Patient Time with patient: 25 - 35 minutes Subjective Date/time seen: 12/30/23 11:10 Patient calm on bedrest and states she feels alright except for some nasal congestion and post-nasal drip and moist intermittent coughs. States she might be having some allergies. Interval history: Patient calm on bedrest and in no acute distress. Review of Systems Review of Systems: 12 systems were reviewed with pertinent positives and negatives per HPI. Except as documented in the HPI, all other systems were reviewed and are negative. All systems reviewed & are unremarkable except as noted in HPI and below Exam Narrative: Weight 92 kg BMI 32.7 General - Awake and alert. No acute distress Eyes - PERRLA, EOM intact ENT - No thrush, No erythema Neck - Moderate swelling left neck region; anterior clavicle region, moderately tender to palpation, no fluctuance or induration or increased warmth. No drainage noted. Cardiovascular - RRR no murmurs, no JVD Lungs: Clear to auscultation, No wheezing, use of accessory muscles, no crackles Skin - Skin warm and dry, Biopsy site with dry band-aid. Abdomen - Normal bowel sounds, abdomen soft and nontender Extremities - 1+ edema carmita LE, no cyanosis or clubbing Musculoskeletal - 5/5 strength, normal range of motion, Neurological ? Alert and oriented x 3, CN II-XII grossly intact. Psych: Normal mood and affect. Const: Other: Obese, no acute distress, appears stated age HENMT: Other: Head is normocephalic, atraumatic, mucous membranes are tacky, no oral pharyngeal erythema, multiple missing teeth but remainder of dentition appears fair, moderately large area swelling on the left neck. No induration or increased warmth Eyes: Other: Pupils are equal and reactive, no scleral icterus, positive conjunctival pallor Neck: Other: Please see exam under HEENT Resp: Other: Clear to auscultation bilaterally, no increased work of breathing Cardio: Other: Sinus tachycardia, 2+ bilateral radial pedal pulses GI: Other: Soft, nontender, nondistended, positive bowel sounds Skin: Other: Warm, dry and intact. Neuro: Other: Alert orient x4, speech is clear, no facial asymmetry, no localizing neurologic deficits of fine or gross motor skills Extrem: Other: No cyanosis or edema of lower extremities, no calf pain or tenderness Psych: Other: Extremely pleasant, cooperative, appropriate mood and affect, judgment and insight intact Objective Data Vital Signs Vital Signs: Vital Signs - 24 hr 12/29/23 20:00 12/29/23 20:00 12/29/23 20:00 Temperature 97.8 F Pulse Rate 109 H 102 H Respiratory Rate 14 Blood Pressure 133/66 Pulse Oximetry 96 Oxygen Delivery Room Air 12/30/23 00:00 12/30/23 00:00 12/30/23 04:00 Temperature 98.9 F Pulse Rate 99 93 108 H Respiratory Rate 16 Blood Pressure 141/62 H Pulse Oximetry 95 Oxygen Delivery 12/30/23 04:00 12/30/23 08:00 12/30/23 08:03 Temperature 97.9 F 98.6 F Pulse Rate 109 H 104 H 104 H Respiratory Rate 14 18 Blood Pressure 144/64 H 153/67 H Pulse Oximetry 94 94 Oxygen Delivery 12/30/23 12:02 12/30/23 12:00 12/30/23 16:00 Temperature 98.1 F 98.1 F Pulse Rate 101 H 106 H 107 H Respiratory Rate 18 18 Blood Pressure 158/63 H 151/60 H Pulse Oximetry 93 95 Oxygen Delivery Intake/Output Intake/Output: Intake & Output 12/28/23 12/29/23 12/29/23 12/30/23 00:59 00:59 23:59 23:59 Intake Total 2569.8 Output Total 3775 Balance -1205.2 Meds/Results Medications: Active Medications Generic Name Dose Route Start Last Admin Trade Name Freq PRN Reason Stop Dose Admin Acetaminophen 650 mg 12/25/23 17:41 12/25/23 21:53 Acetaminophen 325 Mg Tablet PO 650 mg Q4H PRN Administration Mild Pain (1-3) or Fever Hydrocodone Bitart/Acetaminophen 1 tab 12/25/23 17:41 12/30/23 17:05 Hydrocodone/Acetaminophen (*Crx) 5-325 Mg Tablet PO 1 tab Q4H PRN Administration Moderate Pain (4-6) Dextrose 12.5 gm 12/24/23 22:10 Dextrose 50% 25 Gm/50 Ml Syringe IV PUSH PRN PRN Hypoglycemia Protocol Glucagon 1 mg 12/24/23 22:10 Glucagon For Inj 1 Mg Vial IM PRN PRN Hypoglycemia Protocol Glucose 15 gm 12/24/23 22:10 Glucose Oral Gel 15 Gm Of Glucse In 37.5 Gm Tube PO PRN PRN Hypoglycemia Protocol Heparin Sodium (Porcine) 6,000 units 12/27/23 16:30 12/30/23 09:43 Heparin Sodium 5,000 Units/Ml Vial IV PUSH 6,000 units PRN PRN Administration aPTT less than 55 seconds Heparin Sodium (Porcine) 3,000 units 12/27/23 16:30 12/28/23 19:42 Heparin Sodium 5,000 Units/Ml Vial IV PUSH 3,000 units PRN PRN Administration aPTT 55 - 70 seconds Hydromorphone HCl 0.5 mg 12/25/23 00:33 12/25/23 08:41 Hydromorphone Hcl Inj (*Crx) 1 Mg/Ml Syr IV PUSH 0.5 mg Q3H PRN Administration Breakthrough Pain Hydroxyzine HCl 25 mg 12/25/23 00:38 12/29/23 21:59 Hydroxyzine Hcl 25 Mg Tablet PO 25 mg Q6H PRN Administration nerves/itching Sodium Chloride 1,000 mls @ 100 mls/hr 12/24/23 22:05 12/30/23 11:22 Normal Saline Iv IV CONT Infused .Q10H LLOYD Infusion Dextrose 1,000 mls @ 100 mls/hr 12/24/23 22:10 Dextrose 5% 1,000 Ml IVPB PRN PRN Hypoglycemia Protocol Cefepime HCl 2 gm in 50 mls @ 100 mls/hr 12/25/23 06:00 12/30/23 17:05 Maxipime 2 Gm/Ns 50 Ml IVPB 100 mls/hr Q12H LLOYD Administration Heparin Sodium/Dextrose 25,000 units in 250 mls @ 20 mls/hr 12/27/23 16:30 12/30/23 16:32 Heparin Sodium/D5w 100 Units/Ml IV CONT 2,000 units/hr .[id number] LLOYD 20 mls/hr Titration Protocol 2,000 UNITS/HR Insulin Aspart 3 - 6 units 12/25/23 08:00 12/30/23 11:47 Insulin Aspart (*Bkc) 100 Units/Ml SUB-Q Not Given TIDWM LLOYD Protocol Insulin Aspart 1 - 3 units 12/25/23 21:00 12/29/23 20:00 Insulin Aspart (*Bkc) 100 Units/Ml SUB-Q Not Given HS LLOYD Protocol Levothyroxine Sodium 125 mcg 12/26/23 06:30 12/30/23 05:04 Levothyroxine Sodium 125 Mcg Tablet PO 125 mcg DAILY@0630 LLOYD Administration Linezolid 600 mg 12/30/23 13:00 12/30/23 14:01 Linezolid 600 Mg Tablet PO 600 mg Q12HR LLOYD Administration Lisinopril 20 mg 12/25/23 09:00 12/30/23 08:50 Lisinopril 20 Mg Tablet PO 20 mg DAILY LLOYD Administration Metformin HCl 1,000 mg 12/25/23 08:00 12/25/23 08:36 Metformin Hcl 500 Mg Tablet PO 1,000 mg BIDWM LLOYD Administration Metronidazole 500 mg 12/26/23 16:00 12/30/23 14:01 Metronidazole 500 Mg Tablet PO 500 mg Q8HR LLOYD Administration Morphine Sulfate 2 mg 12/25/23 17:41 12/29/23 10:27 Morphine Sulfate (*Crx) 2 Mg/Ml Inj IV PUSH 2 mg Q4H PRN Administration Pain Rated 7-10 Ondansetron HCl 4 mg 12/25/23 17:41 Ondansetron Inj 4 Mg/2 Ml Vial IV PUSH Q6H PRN Nausea And Vomiting Simvastatin 20 mg 12/25/23 09:00 12/30/23 08:49 Simvastatin 20 Mg Tablet PO 20 mg DAILY LLOYD Administration Vitamin D 2,000 units 12/25/23 09:00 12/30/23 08:51 Cholecalciferol 1,000 Units Tablet PO 2,000 units DAILY LLOYD Administration Radiology Results: ITS Impressions Chest CTA 12/24/23 19:22 IMPRESSION: Subsegmental, nonocclusive emboli in the bilateral upper lobes and right lower lobe. Low clot burden. No evidence of right heart strain. Small pericardial effusion. Multiple pulmonary nodules measuring up to 8mm, recommend follow-up low-dose noncontrast CT of the chest in 3-6 months.. Soft Tissue Neck CT 12/24/23 19:34 IMPRESSION: Heterogeneous, likely cystic and solid left lower neck mass measuring up to 6.3 cm. May represent a necrotic lymph node, other necrotic mass, or abscess. If there has been history of recent catheterization on the left, vascular injury including pseudoaneurysm could be considered, but this is thought to be much less likely. Venous Doppler Study 12/26/23 16:42 IMPRESSION: 1. No deep venous thrombosis. Lymph Node Biopsy Ultrasound 12/27/23 12:37 IMPRESSION: 1. Successful Ultrasound-guided biopsy of a 5 cm relatively solid likely partially necrotic left supraclavicular mass. Labs Labs: Laboratory Results - last 24 hr 12/30/23 12/30/23 12/30/23 07:24 07:31 07:47 WBC 39.9 H RBC 3.33 L Hgb 7.9 L Hct 26.8 L MCV 80.5 MCH 23.7 L MCHC 29.5 L RDW 15.6 H Plt Count 420 H MPV 8.1 Immature Gran % (Auto) 3.7 H Neut % (Auto) 89.6 H Lymph % (Auto) 2.5 L Meagher % (Auto) 3.6 Eos % (Auto) 0.3 Baso % (Auto) 0.3 Lymph # (Auto) 1.01 Meagher # (Auto) 1.5 H Eos # (Auto) 0.1 Baso # (Auto) 0.1 Abs Immat Gran (auto) 1.48 H Absolute Neuts (auto) 35.7 H Absolute Nucleated RBC 0.000 Nucleated RBC % 0.0 Platelet Estimate Slightly increased Hypochromasia 1+ Microcytosis 1+ Schistocytes None seen ESR > 140 H APTT 45.4 H Sodium 131 L Potassium 3.0 L Chloride 94 L Carbon Dioxide 28 Anion Gap 9 BUN 6 L Creatinine 0.60 L Estim Creat Clear Calc 93 Estimated GFR > 60 Glucose 170 H POC Capillary Glucose 184 H Calcium 8.5 Total Bilirubin 0.5 AST 14 ALT 8 Alkaline Phosphatase 158 H C-Reactive Protein 29.4 H Total Protein 6.0 L Albumin 2.6 L 12/30/23 12/30/23 12/30/23 11:34 15:36 16:28 WBC RBC Hgb Hct MCV MCH MCHC RDW Plt Count MPV Immature Gran % (Auto) Neut % (Auto) Lymph % (Auto) Meagher % (Auto) Eos % (Auto) Baso % (Auto) Lymph # (Auto) Meagher # (Auto) Eos # (Auto) Baso # (Auto) Abs Immat Gran (auto) Absolute Neuts (auto) Absolute Nucleated RBC Nucleated RBC % Platelet Estimate Hypochromasia Microcytosis Schistocytes ESR APTT 96.1 H Sodium Potassium Chloride Carbon Dioxide Anion Gap BUN Creatinine Estim Creat Clear Calc Estimated GFR Glucose POC Capillary Glucose 168 H 179 H Calcium Total Bilirubin AST ALT Alkaline Phosphatase C-Reactive Protein Total Protein Albumin Quality VTE Prophylaxis VTE prophylaxis: pharmacologic ordered (Heparin GGT per protocol.) Hospitalist MIPS Advance Care Plan I have confirmed that the patient's Advanced Care Plan is present, code status is documented, or surrogate decision maker is listed in patient medical record.: Yes Medication Reconciliation I have utilized all available resources to obtain, update and review the patients current medications (includes all prescriptions, OTC, herbals, cannabis, and nutritional supplements).: Yes
--- NOTE | 2023-12-30 18:35 | PC.NURSE ---
1837- Called [facility] report line to give report on [phone]. PT to go to [facility]- Room 5917, Bed 1. Spoke to US asked to call back in 20-30 minutes, stated we just got a call . Will pass to regional agronomist nurse.
[2023-12-30 19:26] LABS: Glucose Point of Care 156 mg/dl (65-105)
--- NOTE | 2023-12-30 19:37 | PC.NURSE ---
Called received from transfer center and info given to day shift nurse, Marta Camejo, at approximately 1830. Marta refused to give the information to night nurse. Information obtained from night charge nurse. Three attempts to give report to receiving facility made. On the first two attempts, receiving facility stated they were too busy to take report and disconnected the call. The third attempt resulted in being placed on hold for over ten minutes before the call was disconnected. Charge nurse made aware of this information.
--- NOTE | 2024-01-27 14:54 | PM.TDS ---
Transfer Discharge Sum: Prov Provider Date of admission: 12/25/23 03:50 Primary care physician: Renato Burgess, Admitting clinician: Delia Jeter DO Consults: 12/26/23 Consult to Physician Routine Comment: Spoke to office @ [phone] ([facility]) Consulting Provider: Jacques Salvador call center analyst/MD group to consult: Surgery Reason for consultation: Neck mass, infection vs malignancy Has provider been notified: Yes Receiving physician/facility: [facility] DS: Admitting Diagnosis Discharge Date 12/30/23 Admitting Diagnosis Hyperglycemia. DS: Discharge Diagnosis Discharge Diagnosis (1) Multiple subsegmental pulmonary emboli without acute cor pulmonale: Code(s): I26.94 - Multiple subsegmental thrombotic pulmonary emboli without acute cor pulmonale Status: Acute Assessment and Plan: - Reports about 5 months of dyspnea on exertion, more acutely short of breath in the last few weeks - No right heart strain on CT or Echo. - Currently on SQ Heparin drip. - Hx of cervical malignancy. (2) Sepsis: Code(s): A41.9 - Sepsis, unspecified organism Status: Acute Assessment and Plan: CT with possible necrotizing neck mass. WBC's remains elevated and stabilized. Currently on Cefepime 2G q12 (12/24-) Flagyl and Azithromycin. Linezolid added per ID Pharmacist. - Likely a longer course with repeat imaging prior to discontinuing antibiotics. - Has a PET scan scheduled on 01/11 - Blood-cultures NGTD. - Continue to follow cultures and Biopsy results. - Transferred to [facility]. (3) Mass in neck: Code(s): R22.1 - Localized swelling, mass and lump, neck Status: Acute Assessment and Plan: Hx uterine cancer. Follows with Dr. Gonzalez at the [facility]. Had post-menopausal bleeding 03/2022, subsequently had a D&C that showed endometrial adenocarcinoma. 10/31/22 CT AP showed an indeterminate 8mm LLL pulmonary nodule, no suspiscious pelvic adenopathy. Completed radiation 12/20/22. Patient reports neck mass is new in the last few weeks, has been increasing in size, and has been more painful. More of an increase in size in the week prior to admission, with associated fevers. Patient reports no recent procedures, and no IV's were placed in her neck 12/24 CT Neck showed Heterogeneous, likely cystic and solid left lower neck mass measuring up to 6.3 cm. May represent a necrotic lymph node, other necrotic mass, or abscess. If there has been history of recent catheterization on the left, vascular injury including pseudoaneurysm could be considered, but this is thought to be much less likely 12/23 CTA Subsegmental, nonocclusive emboli in the bilateral upper lobes and right lower lobe. Low clot burden. No evidence of right heart strain. Small pericardial effusion. Multiple pulmonary nodules measuring up to 8mm, recommend follow-up low-dose noncontrast CT of the chest in 3-6 months.. PLAN --She has follow up with her oncologist scheduled on 01/[address] also scheduled at that time. --US guided biopsy done 12/27/23 and results pending. -- Venous dopplers negative. -- TTE confirms no heart strain. --given possible malignancy, pt at chronically increased risk of DVT/PE. --Continue Empiric Cefepime, Flagyl and Azithromycin for possible abscess vs malignancy with superimposed infection/abscess. --Procalcitonin wnl. -- WBC, CRP, ESR all remain elevated. --Biopsy, sent for cytology, bacterial & fungal GS/Culture, AFB --Pain control: Tylenol, oxycodone prn. Miralax for bowel regimen -- We'll consider transfer to [facility] for further w/u. Transferred to [facility]. (4) Type 2 diabetes mellitus with hyperglycemia, without long-term current use of insulin: Code(s): E11.65 - Type 2 diabetes mellitus with hyperglycemia Status: Acute Assessment and Plan: Home meds: Metformin 1000mg BID --Holding metformin and continue SSI (5) Postablative hypothyroidism: Code(s): E89.0 - Postprocedural hypothyroidism Status: Acute Assessment and Plan: Continue synthroid (6) Essential hypertension: Code(s): I10 - Essential (primary) hypertension Status: Acute Assessment and Plan: Home meds: Lisinopril 20mg Continue home med (7) Pericardial effusion: Code(s): I31.39 - Other pericardial effusion (noninflammatory) Status: Acute Assessment and Plan: - 12/24 TTE Small pericardial effusion. Mild tricuspid regurg, small pericardial effusion, normal right atrial pressure, LVEF >70%. - No cardiopulmonary symptoms noted. (8) Microcytic anemia: Code(s): D50.9 - Iron deficiency anemia, unspecified Status: Acute Assessment and Plan: - H&H fairly stable. - Continue to monitor closely. Plan Patient transferred to [facility] for higher level of care. Transfer Discharge Sum: Med Medications Active and Home Medications: Home Medications levothyroxine 112 mcg capsule 112 mcg PO DAILY 10/27/20 [History Confirmed 12/24/23] simvastatin 20 mg tablet 20 mg PO DAILY 10/27/20 [History Confirmed 12/24/23] hydroxyzine HCl 25 mg tablet 25 mg PO PRN PRN nerves/itching 08/09/22 [History Confirmed 12/24/23] metformin 1,000 mg tablet 1,000 mg PO BID 08/09/22 [History Confirmed 12/24/23] naproxen 500 mg tablet 500 mg PO PRN PRN Pain 08/09/22 [History Confirmed 12/24/23] cholecalciferol (vitamin D3) 50 mcg (2,000 unit) capsule (Vitamin D3) 50 mcg PO DAILY 12/24/23 [History Confirmed 12/24/23] lisinopril 20 mg tablet 20 mg PO DAILY 12/24/23 [History Confirmed 12/24/23] Transfer Discharge Sum: Hosp Hospital Course Hospital course: Mariposa Sheikh is a 63 year old female who presented to the ER with multiple complaints, but her main concern was high blood glucose levels at home. Patient was found to have Multiple subsegmental pulmonary emboli without acute cor pulmonale with no right heart strain on CT or ECHO. This was managed with Heparin drip. She was also noted to have a swelling to her left-side neck, with CT Neck showing Heterogeneous, likely cystic and solid left lower neck mass measuring up to 6.3 cm. May represent a necrotic lymph node, other necrotic mass, or abscess. If there has been history of recent catheterization on the left, vascular injury including pseudoaneurysm could be considered, but this is thought to be much less likely. She was treated with IV Cefepime, Flagyl and Azithromycin. Patient also had a CTA chest done, that showed Subsegmental, nonocclusive emboli in the bilateral upper lobes and right lower lobe. Low clot burden. No evidence of right heart strain. Small pericardial effusion. Multiple pulmonary nodules measuring up to 8mm, recommend follow-up low-dose noncontrast CT of the chest in 3-6 months. With no ENT coverage at this facility, [facility] was contacted and accepted patient for higher level of care, to manage patient's neck swelling. Patient had a needle biopsy done prior to her discharge, with results pending prior to discharge. With the patient's Hx of uterine cancer that was treated at [facility], she preferred the facility for transfer. Patient was medically stable for transfer, with no acute distress noted or reported prior to transfer. Time Spent with Patient Time attestation: Total time spent providing and/or coordinating transfer services: Total time spent: Greater than 30 minutes Exam Narrative: Weight 92 kg BMI 32.7 General - Awake and alert. No acute distress Eyes - PERRLA, EOM intact ENT - No thrush, No erythema Neck - Moderate swelling left neck region; anterior clavicle region, moderately tender to palpation, no fluctuance or induration or increased warmth. No drainage noted. Cardiovascular - RRR no murmurs, no JVD Lungs: Clear to auscultation, No wheezing, use of accessory muscles, no crackles Skin - Skin warm and dry, Biopsy site with dry band-aid. Abdomen - Normal bowel sounds, abdomen soft and nontender Extremities - 1+ edema carmita LE, no cyanosis or clubbing Musculoskeletal - 5/5 strength, normal range of motion, Neurological ? Alert and oriented x 3, CN II-XII grossly intact. Psych: Normal mood and affect. DS: Data Data Completed and Pending Completed studies during hospitalization: Pending at discharge 12/27/23 11:05 Surgical [PTH] Routine Pending studies at discharge: Pending at discharge 12/26/23 17:04 Cytology [PTH] Routine 12/27/23 11:06 Cytology [PTH] Routine
== END 2023-12-30 21:45 | disposition short-term general hospital (02) | DRG 853 ==
LOC: ANHED 17:34 → ANH3MEDSUR 22:19
PROVIDERS: Internal Medicine; Nurse Practitioner Acute Care; Registered Nurse; Admitting Provider Internal Medicine; Emergency Provider Emergency Medicine; PCP Internal Medicine; Visit Provider Nurse Practitioner Adult Health
DX: A41.9 Sepsis, unspecified organism (principal); I26.94 Multiple subsegmental thrombotic pulmonary emboli without acute cor pulmonale; I31.39 Other pericardial effusion (noninflammatory); R22.1 Localized swelling, mass and lump, neck; I10 Essential (primary) hypertension; D50.9 Iron deficiency anemia, unspecified; E05.00 Thyrotoxicosis with diffuse goiter without thyrotoxic crisis or storm; E78.5 Hyperlipidemia, unspecified; E89.0 Postprocedural hypothyroidism; K21.9 Gastro-esophageal reflux disease without esophagitis; M19.90 Unspecified osteoarthritis, unspecified site; G43.909 Migraine, unspecified, not intractable, without status migrainosus; F41.9 Anxiety disorder, unspecified; Z85.42 Personal history of malignant neoplasm of other parts of uterus; Z87.891 Personal history of nicotine dependence
CPT/HCPCS: 36415; 38505; 70491; 71275; 76942; 80053; 81003; 82010; 82565; 82607; 82728; 82746; 82948; 83036; 83540; 83550; 83605; 83735; 83880; 84145; 84436; 84439; 84443; 84480; 84484; 85025; 85046; 85380; 85610; 85652; 85730; 86140; 87040; 87641; 87651; 88108; 88184; 88305; 88342; 93005; 93306; 93970; 96365; 96366; 96367; 96375; 96376; 99285; A9270; G0378; J0692; J1171; J1644; J1756; J1815; J2270; J3370; J3420; J3475; J7030; J7050; Q9967